=== PATIENT | male | born 1965 | race African-American/Black ===

== ENCOUNTER 2017-08-27 10:35 | Inpatient (IN) | payer OTHER ==
--- NOTE | 2017-08-27 16:38 | HP ---
CIWA Score - CIWA Score Nausea/Vomitin-Mild Nausea/No Vomiting Muscle Tremors: 4-Moderate,w/Arms Extend Anxiety: 4-Mod. Anxious/Guarded Agitation: 4-Moderately Restless Paroxysmal Sweats: 1-Minimal Palms Moist Orientation: 0-Oriented Tacttile Disturbances: 0-None Auditory Disturbances: 0-None Visual Disturbances: 0-None Headache: 1-Very Mild CIWA-Ar Total Score: 15 Admission ROS BHS - HPI Chief Complaint: withdrawal sx Allergies/Adverse Reactions: Allergies Allergy/AdvReac Type Severity Reaction Status Date / Time No Known Allergies Allergy Verified 08/27/17 15:00 History of Present Illness: 52 years old male with long history of alcohol nicotine dependence has hypertension gout positive ppd bipolar ii is admitted to detox Exam Limitations: No Limitations - Ebola screening Have you traveled outside of the country in the last 21 days: No Have you had contact with anyone from an Ebola affected area: No Have you been sick,other than usual withdrawal symptoms: No Do you have a fever: No - Review of Systems Constitutional: Loss of Appetite, Changes in sleep, Unintentional Wgt. Loss, Unexplained wgt Loss EENT: reports: No Symptoms Reported Respiratory: reports: No Symptoms reported Cardiac: reports: No Symptoms Reported GI: reports: Nausea, Poor Appetite, Poor Fluid Intake, Abdominal cramping : reports: No Symptoms Reported Musculoskeletal: reports: No Symptoms Reported, Other (right leg trauma 02/2017 support + crutches) Integumentary: reports: No Symptoms Reported Neuro: reports: Tremors Endocrine: reports: No Symptoms Reported Hematology: reports: No Symptoms Reported Psychiatric: reports: Judgement Intact, Orientated x3, Anxious, Depressed Other Systems: Reviewed and Negative Patient History - Patient Medical History Hx Anemia: Yes (not taking any iron supplement) Hx Asthma: No Hx Chronic Obstructive Pulmonary Disease (COPD): No Hx Cancer: No Hx Cardiac Disorders: No Hx Congestive Heart Failure: No Hx Hypertension: Yes (non compliant with meds.) Hx Hypercholesterolemia: No (SIMVASTATIN) Hx Pacemaker: No HX Cerebrovascular Accident: No Hx Seizures: No Hx Dementia: No Hx Diabetes: No Hx Gastrointestinal Disorders: No Hx Liver Disease: No Hx Genitourinary Disorders: No Hx Sexually Transmitted Disorders: No Hx Renal Disease (ESRD): No Hx Thyroid Disease: No Hx Human Immunodeficiency Virus (HIV): No (negative) Hx Hepatitis C: No Hx Depression: No Hx Suicide Attempt: No Hx Bipolar Disorder: Yes Hx Schizophrenia: No - Patient Surgical History Past Surgical History: Yes Hx Neurologic Surgery: No Hx Cataract Extraction: No Hx Cardiac Surgery: No Hx Lung Surgery: No Hx Breast Surgery: No Hx Breast Biopsy: No Hx Abdominal Surgery: No Hx Appendectomy: No Hx Cholecystectomy: No Hx Genitourinary Surgery: No Hx Orthopedic Surgery: Yes (R knee and leg sx 02/19) Anesthesia Reaction: No - PPD History Previous Implant?: Yes Documented Results: Positive w/o proof Implanted On Prior [facility] [place]?: No PPD to be Administered?: No - Smoking Cessation Smoking history: Current every day smoker Have you smoked in the past 12 months: Yes Aproximately how many cigarettes per day: 10 Cigars Per Day: 0 Hx Chewing Tobacco Use: No Initiated information on smoking cessation: Yes 'Breaking Loose' booklet given: 08/27/17 - Substance & Tx. History Hx Alcohol Use: Yes Hx Substance Use: No Substance Use Type: Alcohol Hx Substance Use Treatment: Yes (2015) - Substances Abused Alcohol Route: Oral Frequency: Daily Amount used: 2-3 6PKS BEER 40oz Age of first use: 17 Date of Last Use: 08/27/17 Crack Route: Smoking Frequency: Daily Amount used: $50-60 Age of first use: 19 Date of Last Use: 08/24/17 Family Disease History - Family Disease History Family Disease History: Diabetes: Mother (breast/), CA: Mother, Other: Father (htn CIROHSIS LIVER/), Brother (HIV/), Sister (no contact ) Admission Physical Exam S - Vital Signs Vital Signs: Vital Signs - 24 hr 08/27/17 13:51 Temperature 97 F L Pulse Rate 97 H Respiratory 20 Rate Blood Pressure 157/100 - Physical General Appearance: Yes: Appropriately Dressed, Mild Distress, Thin, Tremorous, Irritable, Sweating, Anxious HEENTM: Yes: Hearing grossly Normal, Normal ENT Inspection, Normocephalic, Normal Voice Respiratory: Yes: Chest Non-Tender, Lungs Clear, Normal Breath Sounds, No Respiratory Distress, No Accessory Muscle Use Neck: Yes: Supple, Trachea in good position Breast: Yes: Breasts Symetrical Cardiology: Yes: Regular Rhythm, S1, S2, Tachycardia Abdominal: Yes: Non Tender, Soft, Increased Bowel Sounds Genitourinary: Yes: Within Normal Limits Back: Yes: Normal Inspection Musculoskeletal: Yes: Gait Steady (crutches), Joint Stiffness (right knee), Muscle weakness (right leg) Extremities: Yes: Non-Tender, Tremors, Other (right leg trauma 02/2017) Neurological: Yes: Fully Oriented, Alert, Normal Response, Depressed Affect Integumentary: Yes: Warm Lymphatic: Yes: Within Normal Limits - Diagnostic (1) Alcohol dependence with uncomplicated withdrawal Current Visit: Yes Status: Acute (2) Bipolar II disorder Current Visit: Yes Status: Suspected (3) Weight loss Current Visit: Yes Status: Acute (4) Essential hypertension Current Visit: Yes Status: Chronic (5) Gout Current Visit: Yes Status: Chronic Qualifiers: Gout site: multiple sites Gout etiology: other secondary cause Chronicity : chronic Presence of tophus: without tophus Qualified Code(s): M1A.49X0 - Other secondary chronic gout, multiple sites, without tophus (tophi) (6) Nicotine dependence Current Visit: Yes Status: Acute Qualifiers: Nicotine product type: cigarettes Substance use status: in withdrawal Qualified Code(s): F17.213 - Nicotine dependence, cigarettes, with withdrawal Cleared for Admission [facility] - Detox or Rehab [facility] Level of Care: Medically Managed Detox Regimen/Protocol: Librium [facility] Breath Alcohol Content Breath Alcohol Content: 0.025 Urine Drug Screen - Results Drug Screen Negative: Yes
[2017-08-27] MEDS ORDERED: guaiFENesin/D-METHORPHAN HB 10 ML UNIT-DOSE CUPS PO PRN (16:43)
[2017-08-27] MEDS ORDERED: NICOTINE POLACRILEX 2 MG GUM BC PRN (16:43)
[2017-08-27] MEDS ORDERED: chlordiazePOXIDE HCL 25 MG CAPSULE PO PRN (16:43)
[2017-08-27] MEDS ORDERED: LOPERAMIDE HCL 2 MG CAPSULE PO PRN (16:43)
[2017-08-27] MEDS ORDERED: MAGNESIUM CITRATE 300 ML BOTTLE PO PRN (16:43)
[2017-08-27] MEDS ORDERED: MENTHOL/PHENOL 1 EACH UD MM PRN (16:43)
[2017-08-27] MEDS ORDERED: MAGNESIUM HYDROX 2400MG/30ML ORAL SUSPENSION 30 ML CUP PO PRN (16:43)
[2017-08-27] MEDS ORDERED: ACETAMINOPHEN 325 MG TABLET (FP) PO PRN (16:43)
[2017-08-27] MEDS ORDERED: P-EPHED 60MG/TRIPROLIDI 2.5MG TABLET PO PRN (16:43)
[2017-08-27] MEDS ORDERED: MAG HYDROX/AL HYDROX/SIMETH 30 ML UNIT-DOSE CUP PO PRN (16:43)
[2017-08-27] MEDS ORDERED: NICOTINE 14 MG/24 HOURS TOPICAL PATCH TD PRN (18:00)
[2017-08-27] MEDS: THIAMINE HCL 100 MG TABLET (FP) PO SCH (22:31)
[2017-08-27] MEDS: chlordiazePOXIDE HCL 25 MG CAPSULE PO SCH (22:31)
[2017-08-27 23:08] LABS: URINE APPEARANCE CLEAR; URINE BILIRUBIN NEGATIVE (NEGATIVE); URINE BLOOD NEGATIVE (NEGATIVE); URINE COLOR STRAW; URINE GLUCOSE (UA) NEGATIVE (NEGATIVE); URINE KETONE NEGATIVE (NEGATIVE); URINE LEUK ESTERASE NEGATIVE (NEGATIVE); URINE NITRITE NEGATIVE (NEGATIVE); URINE PROTEIN NEGATIVE (NEGATIVE); URINE UROBILINOGEN NEGATIVE mg/dL (0.2-1.0)
[2017-08-28] MEDS: chlordiazePOXIDE HCL 25 MG CAPSULE PO SCH ×4 (05:21→22:18)
[2017-08-28 10:00] LABS: HEMATOCRIT 42.1 % (35.4-49); HEMOGLOBIN 13.5 GM/dL (11.7-16.9); MCH 26.8 pg (25.7-33.7); MCHC 32.1 g/dl (32.0-35.9); MEAN CELL VOLUME 83.4 fl (80-96); MEAN PLT VOLUME 9.1 fl (7.5-11.1); PLATELET COUNT 235 K/MM3 (134-434); RBC 5.05 M/mm3 (4.00-5.60); RDW 15.4 % (11.9-15.9); WHITE BLOOD COUNT 5.6 K/mm3 (4.0-10.0)
[2017-08-28] MEDS: PRENATAL VITAMINS W/ FOLIC ACID TABLET (FP) PO SCH (10:47)
[2017-08-28] MEDS: ASPIRIN 81 MG CHEWABLE TABLETS PO SCH (10:47)
[2017-08-28] MEDS: amLODIPine BESYLATE 10 MG TABLET (FP) PO SCH (10:47)
[2017-08-28] MEDS: ALLOPURINOL 100 MG TABLET (FP) PO SCH (10:48)
--- NOTE | 2017-08-28 11:20 | PN ---
[facility] CIWA - CIWA Score Nausea/Vomitin-No Nausea/No Vomiting Muscle Tremors: 4-Moderate,w/Arms Extend Anxiety: 4-Mod. Anxious/Guarded Agitation: 4-Moderately Restless Paroxysmal Sweats: 1-Minimal Palms Moist Orientation: 0-Oriented Tacttile Disturbances: 3-Moderate Itch/Numb/Burn Auditory Disturbances: 0-None Visual Disturbances: 0-None Headache: 0-None Present CIWA-Ar Total Score: 16 BHS Progress Note (SOAP) Subjective: ANXIETY,SWEATS,TREMORS,FATIGUE. Objective: 08/28/17 11:20 Vital Signs Temperature 95.1 F L 08/28/17 09:10 Pulse Rate 88 08/28/17 09:10 Respiratory Rate 18 08/28/17 09:10 Blood Pressure 135/92 08/28/17 09:10 O2 Sat by Pulse Oximetry (%) Laboratory Last Values WBC 5.6 K/mm3 (4.0-10.0) 08/28/17 06:00 RBC 5.05 M/mm3 (4.00-5.60) 08/28/17 06:00 Hgb 13.5 GM/dL (11.7-16.9) 08/28/17 06:00 Hct 42.1 % (35.4-49) 08/28/17 06:00 MCV 83.4 fl (80-96) 08/28/17 06:00 MCH 26.8 pg (25.7-33.7) 08/28/17 06:00 MCHC 32.1 g/dl (32.0-35.9) 08/28/17 06:00 RDW 15.4 % (11.9-15.9) 08/28/17 06:00 Plt Count 235 K/MM3 (134-434) 08/28/17 06:00 MPV 9.1 fl (7.5-11.1) 08/28/17 06:00 Urine Color Straw 08/27/17 22:40 Urine Appearance Clear 08/27/17 22:40 Urine pH 5.0 (5.0-8.0) 08/27/17 22:40 Ur Specific [place] 1.009 (1.001-1.035) 08/27/17 22:40 Urine Protein Negative (NEGATIVE) 08/27/17 22:40 Urine Glucose (UA) Negative (NEGATIVE) 08/27/17 22:40 Urine Ketones Negative (NEGATIVE) 08/27/17 22:40 Urine Blood Negative (NEGATIVE) 08/27/17 22:40 Urine Nitrite Negative (NEGATIVE) 08/27/17 22:40 Urine Bilirubin Negative (NEGATIVE) 08/27/17 22:40 Urine Urobilinogen Negative mg/dL (0.2-1.0) 08/27/17 22:40 Ur Leukocyte Esterase Negative (NEGATIVE) 08/27/17 22:40 OTHER LAB RESULTS PENDING. Assessment: 08/28/17 11:20 WITHDRAWAL SX Plan: CONTINUE DETOX
[2017-08-28 11:35] LABS: CHLORIDE 107 mmol/L (98-107); POTASSIUM 4.2 mmol/L (3.5-5.1); SODIUM 145 mmol/L (136-145)
[2017-08-28 11:48] LABS: ALK PHOS 91 U/L (45-117); ANION GAP 10 (8-16); BILIRUBIN,TOTAL 0.4 mg/dL (0.2-1.0); BLOOD UREA NITROGEN 17 mg/dL (7-18); CALCIUM 9.4 mg/dL (8.5-10.1); CO2 28 mmol/L (21-32); CREATININE 1.1 mg/dL (0.7-1.3); GLUCOSE,RANDOM 63 mg/dL (74-106); SGOT/AST 54 U/L (15-37); SGPT/ALT 36 U/L (12-78); TOT PROT 8.6 g/dl (6.4-8.2)
--- NOTE | 2017-08-28 11:58 | CONSULT ---
[facility] Psychiatric Consult - Data Date of interview: 08/28/17 Admission source: [facility] Identifying data: Readmission to [facility] for this 52 y/o AA male seeking detox treatment on for alcohol and cocaine (crack) dependence.Patient is single,father of one,domiciled,disabled and currently supported on SSI benefits. Substance Abuse History: Discussed in this session.Mr Murphy confirmed daily use of alcohol and crack.See details in the current [facility] report : Smoking history: Current every day smoker. Have you smoked in the past 12 months: Yes. Aproximately how many cigarettes per day: 10. Cigars Per Day: 0. Hx Chewing Tobacco Use: No. Initiated information on smoking cessation: Yes. 'Breaking Loose' booklet given: 08/27/17. - Substance & Tx. History. Hx Alcohol Use: Yes. Hx Substance Use: No. Substance Use Type: Alcohol. Hx Substance Use Treatment: Yes (2015). - Substances Abused. Alcohol. Route: Oral. Frequency: Daily. Amount used: 2-3 6PKS BEER 40oz. Age of first use: 17. Date of Last Use: 08/27/17. Crack. Route: Smoking. Frequency: Daily. Amount used: $50-60. Age of first use: 19. Date of Last Use: 08/24/17 Medical History: Recent orthosurgery for injured right knee + right leg (02/2017) ,hypertension,dyslipidemia,gout and chronic arthritis. Psychiatric History: Patient admits to " a few " psychiatric hospitalizations years ago.Records indicate early onset of psychiatric disturbances (paranoia, auditory hallucinations experienced at age [age]).[place] [place] [place]osed with [place]D and Bipolar Disorder,according to self-report.Prescribed zyprexa 10 mg/daily + paxil 20 mg/daily.Mr Murphy states that he has NOT kept his appointments with his psychiatrist at [facility] for past 2-3 months.Questionable adherence to medications.No reported history of suicide attempts. Physical/Sexual Abuse/Trauma History: Patient denies. Additional Comment: Drug Screen is negative. Mental Status Exam - Mental Status Exam Alert and Oriented to: Time, Place, Person Cognitive Function: Grossly Intact Patient Appearance: Well Groomed Mood: Withdrawn, Anxious Affect: Mood Congruent Patient Behavior: Appropriate, Cooperative Speech Pattern: Clear, Appropriate Voice Loudness: Normal Thought Process: Goal Oriented Thought Disorder: Not Present Hallucinations: Denies Suicidal Ideation: Denies Homicidal Ideation: Denies Insight/Judgement: Poor Sleep: Poorly, Difficulty falling asleep Appetite: Good Muscle strength/Tone: Normal (no complaint of rigidity or weakness) Gait/Station: Other (ambulates with a pair of crutches) Psychiatric Findings - Problem List ([place] 1, 2,3) (1) Alcohol dependence with uncomplicated withdrawal Current Visit: Yes Status: Acute (2) Nicotine dependence Current Visit: Yes Status: Acute Qualifiers: Nicotine product type: cigarettes Substance use status: in withdrawal Qualified Code(s): F17.213 - Nicotine dependence, cigarettes, with withdrawal (3) Schizophrenia Current Visit: Yes Status: Chronic Qualifiers: Schizophrenia type: unspecified Qualified Code(s): F20.9 - Schizophrenia, unspecified Comment: As per records.Patient is on olanzapine.Enrolled in [facility]PD care at [facility].Non compliant with medications for past two months. (4) Insomnia Current Visit: Yes Status: Acute - Initial Treatment Plan Initial Treatment Plan: Records revisited.Psychoeducation provided in this session.Detoxification in progress.Medications : paxil 10 mg po daily + zyprexa 10 mg po hs + ambien 10 mg po hs.Side effecst/benefits of each drug are discussed with the patient.Made aware of risk of parasomnias,suicidal ideation, sexual dysfunction and metabolic syndrome.No report of past adverse effects from this regimen.Consent (verbal) given by patient.Observation.Fall precautions.
[2017-08-28] MEDS: PARoxetine HCL 10 MG TABLET (FP) PO SCH (14:35)
[2017-08-28] MEDS ORDERED: ZOLPIDEM TARTRATE 10 MG TABLET (PARK CARE ONLY) PO PRN (22:00)
[2017-08-28] MEDS: OLANZapine 10 MG TABLET PO SCH (22:18)
[2017-08-28] MEDS: THIAMINE HCL 100 MG TABLET (FP) PO SCH (22:18)
[2017-08-29] MEDS: chlordiazePOXIDE HCL 25 MG CAPSULE PO SCH ×3 (06:00→17:22)
--- NOTE | 2017-08-29 07:55 | EKG ---
Test Reason : Blood Pressure : / mmHG Vent. Rate : 093 BPM Atrial Rate : 093 BPM P-R Int : 124 ms QRS Dur : 074 ms QT Int : 356 ms P-R-T Axes : 079 069 081 degrees QTc Int : 442 ms NORMAL SINUS RHYTHM NORMAL ECG NO PREVIOUS ECGS AVAILABLE Confirmed by ROCK CAO, GALINA ([id number]) on 08/29/2017 7:55:34 AM Referred By: Confirmed By:GALINA WILKERSON MD
[2017-08-29] MEDS: PARoxetine HCL 10 MG TABLET (FP) PO SCH (10:29)
[2017-08-29] MEDS: ALLOPURINOL 100 MG TABLET (FP) PO SCH (10:29)
[2017-08-29] MEDS: ASPIRIN 81 MG CHEWABLE TABLETS PO SCH (10:29)
[2017-08-29] MEDS: PRENATAL VITAMINS W/ FOLIC ACID TABLET (FP) PO SCH (10:29)
[2017-08-29] MEDS: amLODIPine BESYLATE 10 MG TABLET (FP) PO SCH (10:29)
--- NOTE | 2017-08-29 12:23 | PN ---
[facility] CIWA - CIWA Score Nausea/Vomitin-No Nausea/No Vomiting Muscle Tremors: 4-Moderate,w/Arms Extend Anxiety: 4-Mod. Anxious/Guarded Agitation: 4-Moderately Restless Paroxysmal Sweats: 1-Minimal Palms Moist Orientation: 0-Oriented Tacttile Disturbances: 3-Moderate Itch/Numb/Burn Auditory Disturbances: 0-None Visual Disturbances: 0-None Headache: 0-None Present CIWA-Ar Total Score: 16 BHS Progress Note (SOAP) Subjective: ANXIETY,TREMORS,FATIGUE. Objective: 08/29/17 12:23 Vital Signs Temperature 96.3 F L 08/29/17 09:55 Pulse Rate 80 08/29/17 09:55 Respiratory Rate 20 08/29/17 09:55 Blood Pressure 133/92 08/29/17 09:55 O2 Sat by Pulse Oximetry (%) Laboratory Last Values WBC 5.6 K/mm3 (4.0-10.0) 08/28/17 06:00 RBC 5.05 M/mm3 (4.00-5.60) 08/28/17 06:00 Hgb 13.5 GM/dL (11.7-16.9) 08/28/17 06:00 Hct 42.1 % (35.4-49) 08/28/17 06:00 MCV 83.4 fl (80-96) 08/28/17 06:00 MCH 26.8 pg (25.7-33.7) 08/28/17 06:00 MCHC 32.1 g/dl (32.0-35.9) 08/28/17 06:00 RDW 15.4 % (11.9-15.9) 08/28/17 06:00 Plt Count 235 K/MM3 (134-434) 08/28/17 06:00 MPV 9.1 fl (7.5-11.1) 08/28/17 06:00 Sodium 145 mmol/L (136-145) 08/28/17 06:00 Potassium 4.2 mmol/L (3.5-5.1) 08/28/17 06:00 Chloride 107 mmol/L (98-107) 08/28/17 06:00 Carbon Dioxide 28 mmol/L (21-32) 08/28/17 06:00 Anion Gap 10 (8-16) 08/28/17 06:00 BUN 17 mg/dL (7-18) 08/28/17 06:00 Creatinine 1.1 mg/dL (0.7-1.3) 08/28/17 06:00 Creat Clearance w eGFR > 60 (>60) 08/28/17 06:00 Random Glucose 63 mg/dL (74-106) L D 08/28/17 06:00 Calcium 9.4 mg/dL (8.5-10.1) 08/28/17 06:00 Total Bilirubin 0.4 mg/dL (0.2-1.0) 08/28/17 06:00 AST 54 U/L (15-37) H D 08/28/17 06:00 ALT 36 U/L (12-78) 08/28/17 06:00 Alkaline Phosphatase 91 U/L (45-117) 08/28/17 06:00 Total Protein 8.6 g/dl (6.4-8.2) H 08/28/17 06:00 Albumin 4.0 g/dl (3.4-5.0) 08/28/17 06:00 Urine Color Straw 08/27/17 22:40 Urine Appearance Clear 08/27/17 22:40 Urine pH 5.0 (5.0-8.0) 08/27/17 22:40 Ur Specific [place] 1.009 (1.001-1.035) 08/27/17 22:40 Urine Protein Negative (NEGATIVE) 08/27/17 22:40 Urine Glucose (UA) Negative (NEGATIVE) 08/27/17 22:40 Urine Ketones Negative (NEGATIVE) 08/27/17 22:40 Urine Blood Negative (NEGATIVE) 08/27/17 22:40 Urine Nitrite Negative (NEGATIVE) 08/27/17 22:40 Urine Bilirubin Negative (NEGATIVE) 08/27/17 22:40 Urine Urobilinogen Negative mg/dL (0.2-1.0) 08/27/17 22:40 Ur Leukocyte Esterase Negative (NEGATIVE) 08/27/17 22:40 RPR Titer Nonreactive (NONREACTIVE) 08/28/17 06:00 Assessment: 08/29/17 12:23 WITHDRAWAL SX Plan: CONTINUE DETOX
[2017-08-29] MEDS: THIAMINE HCL 100 MG TABLET (FP) PO SCH (22:24)
[2017-08-29] MEDS: chlordiazePOXIDE 5 MG CAPSULE PO SCH (22:24)
[2017-08-29] MEDS: OLANZapine 10 MG TABLET PO SCH (22:25)
[2017-08-30] MEDS: chlordiazePOXIDE 5 MG CAPSULE PO SCH ×3 (05:39→17:45)
--- NOTE | 2017-08-30 10:43 | PN ---
BHS Progress Note (SOAP) Subjective: ANXIETY,SWEATS,OOB AMBULATING WITH CRUTCHES. DECREASED TREMORS. Objective: 08/30/17 10:42 Vital Signs Temperature 97.7 F 08/30/17 10:27 Pulse Rate 87 08/30/17 10:27 Respiratory Rate 18 08/30/17 10:27 Blood Pressure 131/91 08/30/17 10:27 O2 Sat by Pulse Oximetry (%) Laboratory Last Values WBC 5.6 K/mm3 (4.0-10.0) 08/28/17 06:00 RBC 5.05 M/mm3 (4.00-5.60) 08/28/17 06:00 Hgb 13.5 GM/dL (11.7-16.9) 08/28/17 06:00 Hct 42.1 % (35.4-49) 08/28/17 06:00 MCV 83.4 fl (80-96) 08/28/17 06:00 MCH 26.8 pg (25.7-33.7) 08/28/17 06:00 MCHC 32.1 g/dl (32.0-35.9) 08/28/17 06:00 RDW 15.4 % (11.9-15.9) 08/28/17 06:00 Plt Count 235 K/MM3 (134-434) 08/28/17 06:00 MPV 9.1 fl (7.5-11.1) 08/28/17 06:00 Sodium 145 mmol/L (136-145) 08/28/17 06:00 Potassium 4.2 mmol/L (3.5-5.1) 08/28/17 06:00 Chloride 107 mmol/L (98-107) 08/28/17 06:00 Carbon Dioxide 28 mmol/L (21-32) 08/28/17 06:00 Anion Gap 10 (8-16) 08/28/17 06:00 BUN 17 mg/dL (7-18) 08/28/17 06:00 Creatinine 1.1 mg/dL (0.7-1.3) 08/28/17 06:00 Creat Clearance w eGFR > 60 (>60) 08/28/17 06:00 Random Glucose 63 mg/dL (74-106) L D 08/28/17 06:00 Calcium 9.4 mg/dL (8.5-10.1) 08/28/17 06:00 Total Bilirubin 0.4 mg/dL (0.2-1.0) 08/28/17 06:00 AST 54 U/L (15-37) H D 08/28/17 06:00 ALT 36 U/L (12-78) 08/28/17 06:00 Alkaline Phosphatase 91 U/L (45-117) 08/28/17 06:00 Total Protein 8.6 g/dl (6.4-8.2) H 08/28/17 06:00 Albumin 4.0 g/dl (3.4-5.0) 08/28/17 06:00 Urine Color Straw 08/27/17 22:40 Urine Appearance Clear 08/27/17 22:40 Urine pH 5.0 (5.0-8.0) 08/27/17 22:40 Ur Specific [place] 1.009 (1.001-1.035) 08/27/17 22:40 Urine Protein Negative (NEGATIVE) 08/27/17 22:40 Urine Glucose (UA) Negative (NEGATIVE) 08/27/17 22:40 Urine Ketones Negative (NEGATIVE) 08/27/17 22:40 Urine Blood Negative (NEGATIVE) 08/27/17 22:40 Urine Nitrite Negative (NEGATIVE) 08/27/17 22:40 Urine Bilirubin Negative (NEGATIVE) 08/27/17 22:40 Urine Urobilinogen Negative mg/dL (0.2-1.0) 08/27/17 22:40 Ur Leukocyte Esterase Negative (NEGATIVE) 08/27/17 22:40 RPR Titer Nonreactive (NONREACTIVE) 08/28/17 06:00 Assessment: 08/30/17 10:42 WITHDRAWAL SX Plan: CONTINUE DETOX
[2017-08-30] MEDS: amLODIPine BESYLATE 10 MG TABLET (FP) PO SCH (10:44)
[2017-08-30] MEDS: ASPIRIN 81 MG CHEWABLE TABLETS PO SCH (10:44)
[2017-08-30] MEDS: PRENATAL VITAMINS W/ FOLIC ACID TABLET (FP) PO SCH (10:44)
[2017-08-30] MEDS: ALLOPURINOL 100 MG TABLET (FP) PO SCH (10:45)
[2017-08-30] MEDS: PARoxetine HCL 10 MG TABLET (FP) PO SCH (10:45)
[2017-08-30] MEDS: chlordiazePOXIDE HCL 10 MG CAPSULE PO SCH (22:32)
[2017-08-30] MEDS: THIAMINE HCL 100 MG TABLET (FP) PO SCH (22:32)
[2017-08-30] MEDS: OLANZapine 10 MG TABLET PO SCH (22:32)
[2017-08-31] MEDS: chlordiazePOXIDE HCL 10 MG CAPSULE PO SCH ×2 (06:07→10:30)
[2017-08-31 09:51] VITALS: BP 143/94; PULSE 95; TEMP 97.4
--- NOTE | 2017-08-31 10:13 | DS ---
[facility] Detox Discharge Summary Admission Date: 08/27/17 Discharge Date: 08/31/17 - History Present History: Alcohol Dependence Additional Comments: DETOX COMPLETED. ALERT O X 3. REFERRED TO REHAB TODAY. Pertinent Past History: SEE DX BELOW. - Physical Exam Results Vital Signs: Vital Signs Temperature 97.4 F L 08/31/17 09:51 Pulse Rate 95 H 08/31/17 09:51 Respiratory Rate 20 08/31/17 09:51 Blood Pressure 143/94 08/31/17 09:51 O2 Sat by Pulse Oximetry (%) Pertinent Admission Physical Exam Findings: WITHDRAWAL SX Laboratory Last Values WBC 5.6 K/mm3 (4.0-10.0) 08/28/17 06:00 RBC 5.05 M/mm3 (4.00-5.60) 08/28/17 06:00 Hgb 13.5 GM/dL (11.7-16.9) 08/28/17 06:00 Hct 42.1 % (35.4-49) 08/28/17 06:00 MCV 83.4 fl (80-96) 08/28/17 06:00 MCH 26.8 pg (25.7-33.7) 08/28/17 06:00 MCHC 32.1 g/dl (32.0-35.9) 08/28/17 06:00 RDW 15.4 % (11.9-15.9) 08/28/17 06:00 Plt Count 235 K/MM3 (134-434) 08/28/17 06:00 MPV 9.1 fl (7.5-11.1) 08/28/17 06:00 Sodium 145 mmol/L (136-145) 08/28/17 06:00 Potassium 4.2 mmol/L (3.5-5.1) 08/28/17 06:00 Chloride 107 mmol/L (98-107) 08/28/17 06:00 Carbon Dioxide 28 mmol/L (21-32) 08/28/17 06:00 Anion Gap 10 (8-16) 08/28/17 06:00 BUN 17 mg/dL (7-18) 08/28/17 06:00 Creatinine 1.1 mg/dL (0.7-1.3) 08/28/17 06:00 Creat Clearance w eGFR > 60 (>60) 08/28/17 06:00 Random Glucose 63 mg/dL (74-106) L D 08/28/17 06:00 Calcium 9.4 mg/dL (8.5-10.1) 08/28/17 06:00 Total Bilirubin 0.4 mg/dL (0.2-1.0) 08/28/17 06:00 AST 54 U/L (15-37) H D 08/28/17 06:00 ALT 36 U/L (12-78) 08/28/17 06:00 Alkaline Phosphatase 91 U/L (45-117) 08/28/17 06:00 Total Protein 8.6 g/dl (6.4-8.2) H 08/28/17 06:00 Albumin 4.0 g/dl (3.4-5.0) 08/28/17 06:00 Urine Color Straw 08/27/17 22:40 Urine Appearance Clear 08/27/17 22:40 Urine pH 5.0 (5.0-8.0) 08/27/17 22:40 Ur Specific [place] 1.009 (1.001-1.035) 08/27/17 22:40 Urine Protein Negative (NEGATIVE) 08/27/17 22:40 Urine Glucose (UA) Negative (NEGATIVE) 08/27/17 22:40 Urine Ketones Negative (NEGATIVE) 08/27/17 22:40 Urine Blood Negative (NEGATIVE) 08/27/17 22:40 Urine Nitrite Negative (NEGATIVE) 08/27/17 22:40 Urine Bilirubin Negative (NEGATIVE) 08/27/17 22:40 Urine Urobilinogen Negative mg/dL (0.2-1.0) 08/27/17 22:40 Ur Leukocyte Esterase Negative (NEGATIVE) 08/27/17 22:40 RPR Titer Nonreactive (NONREACTIVE) 08/28/17 06:00 - Treatment Hospital Course: Detox Protocol Followed, Detoxed Safely, Responded well, Discharged Condition Good, Rehab Referral Accepted Patient has Accepted a Rehab Referral to: [email or web address] REHAB - Medication Discharge Medications: Ambulatory Orders Paroxetine HCl [Paxil -] 20 mg PO DAILY #30 tablet 09/10/14 Olanzapine [ZyPREXA -] 10 mg PO HS #30 tablet 12/21/14 Allopurinol [Zyloprim -] 100 mg PO DAILY #30 tablet 03/02/16 Amlodipine Besylate [Norvasc -] 10 mg PO DAILY #30 tablet 03/02/16 Aspirin [ASA -] 81 mg PO DAILY #30 tab.chew 03/02/16 Allopurinol [Zyloprim -] 100 mg PO DAILY 08/27/17 Olanzapine [Zyprexa -] 10 mg PO HS #30 tablet 08/28/17 Paroxetine HCl [Paxil -] 10 mg PO DAILY #30 tablet 08/28/17 - Diagnosis (1) Alcohol dependence with uncomplicated withdrawal Current Visit: Yes Status: Acute (2) Nicotine dependence Current Visit: Yes Status: Acute Qualifiers: Nicotine product type: cigarettes Substance use status: in withdrawal Qualified Code(s): F17.213 - Nicotine dependence, cigarettes, with withdrawal (3) Weight loss Current Visit: Yes Status: Chronic (4) Essential hypertension Current Visit: Yes Status: Chronic (5) Gout Current Visit: Yes Status: Chronic Qualifiers: Gout site: multiple sites Gout etiology: other secondary cause Chronicity : chronic Presence of tophus: without tophus Qualified Code(s): M1A.49X0 - Other secondary chronic gout, multiple sites, without tophus (tophi) (6) Acid reflux Current Visit: No Status: Chronic (7) Arthritis of both knees Current Visit: Yes Status: Chronic (8) Hypercholesteremia Current Visit: Yes Status: Chronic (9) Use of cane as ambulatory aid Current Visit: Yes Status: Chronic (10) Uses crutches Current Visit: Yes Status: Acute - AMA Did Patient Leave Against Medical Advice: No
[2017-08-31] MEDS: PRENATAL VITAMINS W/ FOLIC ACID TABLET (FP) PO SCH (10:29)
[2017-08-31] MEDS: amLODIPine BESYLATE 10 MG TABLET (FP) PO SCH (10:29)
[2017-08-31] MEDS: ALLOPURINOL 100 MG TABLET (FP) PO SCH (10:29)
[2017-08-31] MEDS: PARoxetine HCL 10 MG TABLET (FP) PO SCH (10:29)
[2017-08-31] MEDS: ASPIRIN 81 MG CHEWABLE TABLETS PO SCH (10:29)
== END 2017-08-31 11:00 | disposition other institution (70) | DRG 775 ==
LOC: YASAS 10:35 → Y3N 15:30
PROVIDERS: ADMIT Internal Medicine; ATTEND Internal Medicine
PROC: HZ2ZZZZ Detoxification Services for Substance Abuse Treatment (ICD-10-PCS; principal; 2017-08-27)
DX: F10.230 Alcohol dependence with withdrawal, uncomplicated (principal); F17.210 Nicotine dependence, cigarettes, uncomplicated; F31.81 Bipolar II disorder; F20.9 Schizophrenia, unspecified; G47.00 Insomnia, unspecified; I10 Essential (primary) hypertension; K21.9 Gastro-esophageal reflux disease without esophagitis; M13.862 Other specified arthritis, left knee; M13.861 Other specified arthritis, right knee; M1A.49X0 Other secondary chronic gout, multiple sites, without tophus (tophi); R63.4 Abnormal weight loss; Z68.20 Body mass index [BMI] 20.0-20.9, adult; R26.89 Other abnormalities of gait and mobility; Z99.89 Dependence on other enabling machines and devices
CPT/HCPCS: 36415; 71045-TC; 80053; 81003; 85027; 86593; 93005; 93010

== ENCOUNTER 2018-09-05 12:47 | Inpatient (IN) | payer OTHER ==
[2018-09-05 12:57] VITALS: BMI 20.2
--- NOTE | 2018-09-05 16:49 | HP ---
CIWA Score Nausea/Vomitin-Mild Nausea/No Vomiting Muscle Tremors: 2 Anxiety: 1-Mildly Anxious Agitation: 7-Pacing/Thrashing Paroxysmal Sweats: 1-Minimal Palms Moist Orientation: 0-Oriented Tacttile Disturbances: 0-None Auditory Disturbances: 0-None Visual Disturbances: 0-None Headache: 0-None Present CIWA-Ar Total Score: 12 - Admission Criteria OAS Guidelines: Admission for Medically Managed Detox: Requires at least one of the followin. CIWA greater than 12 2. Seizures within the past 24 hours 3. Delirium tremens within the past 24 hours 4. Hallucinations within the past 24 hours 5. Acute intervention needed for co occurring medical disorder 6. Acute intervention needed for co occurring psychiatric disorder 7. Severe withdrawal that cannot be handled at a lower level of care (continued vomiting, continued diarrhea, abnormal vital signs) requiring intravenous medication and/or fluids 8. Patient presents the following: CIWA greater than 12 Admission Criteria Met: Admission criteria met Admission ROS [facility] [place] Chief Complaint: "detox from alcohol and cocaine" 56 years old male with long history of alcohol and nicotine dependence, with h/ o hypertension, h/o gout, h/o positive ppd h/o bipolar. Pt using crutches- after he broke his leg/knee last fall, says he does not need them- was told he can weight bear. Last seen for his leg/knee in 04/2018- has not had any medical care for this since the fall. After he broke his leg/knee last fall- did not. Pt was last here for the same, says he relapsed shortly after he left. Alcohol: 10 24 oz of beer, occ vodka use, no h/o seizures/DT's cocaine: $50/day, smoking Meds: hctz, norvasc 10mg, aspirin, paxil 10mg, zyprexa PCP- in [place] DUR: no controlled meds Utox: cocaine, NICCI- 0.038 Allergies/Adverse Reactions: Allergies Allergy/AdvReac Type Severity Reaction Status Date / Time No Known Allergies Allergy Verified 09/05/18 15:08 - Ebola screening Have you traveled outside of the country in the last 21 days: No Have you had contact with anyone from an Ebola affected area: No Have you been sick,other than usual withdrawal symptoms: No Do you have a fever: No Patient History - Patient Medical History Hx Anemia: Yes (not taking any iron supplement) Hx Asthma: No Hx Chronic Obstructive Pulmonary Disease (COPD): Yes Hx Cancer: No Hx Cardiac Disorders: No Hx Congestive Heart Failure: No Hx Hypertension: Yes Hx Hypercholesterolemia: No (SIMVASTATIN) Hx Pacemaker: No HX Cerebrovascular Accident: No Hx Seizures: No Hx Dementia: No Hx Diabetes: No Hx Gastrointestinal Disorders: No Hx Liver Disease: No Hx Genitourinary Disorders: No Hx Sexually Transmitted Disorders: No Hx Renal Disease (ESRD): No Hx Thyroid Disease: No Hx Human Immunodeficiency Virus (HIV): No (negative) Hx Hepatitis C: No Hx Depression: Yes Hx Suicide Attempt: No Hx Bipolar Disorder: Yes Hx Schizophrenia: No - Patient Surgical History Past Surgical History: Yes Hx Neurologic Surgery: No Hx Cataract Extraction: No Hx Cardiac Surgery: No Hx Lung Surgery: No Hx Breast Surgery: No Hx Breast Biopsy: No Hx Abdominal Surgery: No Hx Appendectomy: No Hx Cholecystectomy: No Hx Genitourinary Surgery: No Hx Section: No Hx Orthopedic Surgery: Yes (fx, right leg (fall) in 02/2018) Anesthesia Reaction: No - PPD History Previous Implant?: Yes Documented Results: Positive w/o proof - Smoking Cessation Smoking history: Current every day smoker Have you smoked in the past 12 months: Yes Aproximately how many cigarettes per day: 10 Cigars Per Day: 0 Hx Chewing Tobacco Use: No Initiated information on smoking cessation: Yes 'Breaking Loose' booklet given: 09/05/18 - Substance & Tx. History Hx Alcohol Use: Yes Hx Substance Use: No Substance Use Type: Alcohol, Cocaine, Marijuana Hx Substance Use Treatment: Yes - Substances Abused Crack Route: Smoking Frequency: Daily Amount used: $50 Age of first use: 19 Date of Last Use: 09/04/18 Alcohol-beer Route: Oral Frequency: Daily Amount used: 2 -3 6 pks. Age of first use: 17 Date of Last Use: 09/05/18 Family Disease History - Family Disease History Family Disease History: Diabetes: Mother (breast/), CA: Mother, Other: Father (htn CIROHSIS LIVER/), Brother (HIV/), Sister (no contact ) Admission Physical Exam BHS - Vital Signs Vital Signs: Vital Signs - 24 hr 09/05/18 12:49 Temperature 96.7 F L Pulse Rate 97 H Respiratory 18 Rate Blood Pressure 160/100 - Physical General Appearance: Yes: No Apparent Distress, Disheveled, Thin HEENTM: Yes: Within Normal Limits, EOMI, Hearing grossly Normal, Normal Voice, TETO Respiratory: Yes: Within Normal Limits, Lungs Clear Neck: Yes: Within Normal Limits Cardiology: Yes: Within Normal Limits, Regular Rhythm, Regular Rate Abdominal: Yes: Within Normal Limits Back: Yes: Within Normal Limits Musculoskeletal: Yes: Within Normal Limits (R knee deformed- enlarged-old fractures, which pt did not follow up with knee replacement. no edema, thin legs ), Other Extremities: Yes: Within Normal Limits (R knee deformed- enlarged-old fractures , which pt did not follow up with knee replacement. no edema, thin legs) Neurological: Yes: Within Normal Limits, Alert, Motor Strength 5/5 Integumentary: Yes: Within Normal Limits (dry skin) Lymphatic: Yes: Within Normal Limits - Diagnostic (1) Alcohol dependence with uncomplicated withdrawal Current Visit: No Status: Acute (2) Cocaine dependence Current Visit: No Status: Acute (3) Uses crutches Current Visit: No Status: Acute (4) Arthritis of both knees Current Visit: No Status: Chronic (5) Essential hypertension Current Visit: No Status: Chronic (6) Bipolar II disorder Current Visit: No Status: Suspected BHS Breath Alcohol Content Breath Alcohol Content: 0.038 Urine Drug Screen - Results Drug Screen Negative: No Urine Drug Screen Results: SVETLANA-Cocaine
[2018-09-05] MEDS ORDERED: MENTHOL/PHENOL 1 EACH UD MM PRN (17:01)
[2018-09-05] MEDS ORDERED: P-EPHED 60MG/TRIPROLIDI 2.5MG TABLET PO PRN (17:01)
[2018-09-05] MEDS ORDERED: MAGNESIUM CITRATE 300 ML BOTTLE PO PRN (17:01)
[2018-09-05] MEDS ORDERED: MAG HYDROX/AL HYDROX/SIMETH 30 ML UNIT-DOSE CUP PO PRN (17:01)
[2018-09-05] MEDS ORDERED: IBUPROFEN 400 MG TABLET (FP) PO PRN (17:01)
[2018-09-05] MEDS ORDERED: LOPERAMIDE HCL 2 MG CAPSULE PO PRN (17:01)
[2018-09-05] MEDS ORDERED: ACETAMINOPHEN 325 MG TABLET (FP) PO PRN (17:01)
[2018-09-05] MEDS ORDERED: guaiFENesin/D-METHORPHAN HB 10 ML UNIT-DOSE CUPS PO PRN (17:01)
[2018-09-05] MEDS ORDERED: MAGNESIUM HYDROX 2400MG/30ML ORAL SUSPENSION 30 ML CUP PO PRN (17:01)
[2018-09-05] MEDS ORDERED: chlordiazePOXIDE HCL 25 MG CAPSULE PO PRN (17:03)
[2018-09-05] MEDS ORDERED: chlordiazePOXIDE HCL 25 MG CAPSULE PO ONE (18:00)
[2018-09-05] MEDS ORDERED: HYDROCHLOROTHIAZIDE 25 MG TABLET (FP) PO ONE (19:00)
[2018-09-05] MEDS ORDERED: amLODIPine BESYLATE 10 MG TABLET (FP) PO ONE (19:00)
[2018-09-05] MEDS ORDERED: MELATONIN 5 MG TABLETS PO PRN (22:00)
[2018-09-05] MEDS: THIAMINE HCL 100 MG TABLET (FP) PO SCH (22:25)
[2018-09-05] MEDS: chlordiazePOXIDE HCL 25 MG CAPSULE PO SCH (22:25)
[2018-09-05] MEDS: OLANZapine 10 MG TABLET PO SCH (22:25)
[2018-09-06 02:14] LABS: URINE APPEARANCE CLEAR; URINE BILIRUBIN NEGATIVE (<2.0 mg/dL); URINE COLOR STRAW; URINE GLUCOSE (UA) NEGATIVE (NEGATIVE); URINE KETONE NEGATIVE (NEGATIVE); URINE LEUK ESTERASE NEGATIVE (NEGATIVE); URINE NITRITE NEGATIVE (NEGATIVE); URINE PROTEIN NEGATIVE (NEGATIVE); URINE UROBILINOGEN NEGATIVE mg/dL (0.2-1.0)
[2018-09-06] MEDS: chlordiazePOXIDE HCL 25 MG CAPSULE PO SCH ×4 (06:33→22:51)
[2018-09-06] MEDS: amLODIPine BESYLATE 10 MG TABLET (FP) PO SCH (10:34)
[2018-09-06] MEDS: HYDROCHLOROTHIAZIDE 25 MG TABLET (FP) PO SCH (10:34)
[2018-09-06] MEDS: PARoxetine HCL 10 MG TABLET (FP) PO SCH (10:34)
[2018-09-06] MEDS: PRENATAL VITAMINS W/ FOLIC ACID TABLET (FP) PO SCH (10:34)
[2018-09-06 10:49] LABS: HEMATOCRIT 35.9 % (35.4-49); HEMOGLOBIN 12.1 GM/dL (11.7-16.9); MCH 28.1 pg (25.7-33.7); MCHC 33.8 g/dl (32.0-35.9); MEAN CELL VOLUME 83.1 fl (80-96); MEAN PLT VOLUME 8.6 fl (7.5-11.1); PLATELET COUNT 197 K/MM3 (134-434); RBC 4.32 M/mm3 (4.00-5.60); RDW 14.6 % (11.9-15.9); WHITE BLOOD COUNT 3.9 K/mm3 (4.0-10.0)
[2018-09-06 10:51] LABS: ALK PHOS 77 U/L (45-117); ANION GAP 7 MMOL/L (8-16); BILIRUBIN,TOTAL 0.5 mg/dL (0.2-1); BLOOD UREA NITROGEN 13 mg/dL (7-18); CALCIUM 8.8 mg/dL (8.5-10.1); CHLORIDE 106 mmol/L (98-107); CO2 30 mmol/L (21-32); CREATININE 0.9 mg/dL (0.55-1.3); GLUCOSE,RANDOM 87 mg/dL (74-106); POTASSIUM 3.8 mmol/L (3.5-5.1); SGOT/AST 138 U/L (15-37); SGPT/ALT 74 U/L (13-61); SODIUM 143 mmol/L (136-145); TOT PROT 6.4 g/dl (6.4-8.2)
--- NOTE | 2018-09-06 13:37 | PN ---
S CIWA - CIWA Score Nausea/Vomitin-No Nausea/No Vomiting Muscle Tremors: 3 Anxiety: 3 Agitation: 3 Paroxysmal Sweats: 2 Orientation: 0-Oriented Tacttile Disturbances: 0-None Auditory Disturbances: 0-None Visual Disturbances: 0-None Headache: 0-None Present CIWA-Ar Total Score: 11 BHS Progress Note (SOAP) Subjective: sweats interrupted sleep body aches Objective: 09/06/18 13:36 Vital Signs Temperature 98.2 F 09/06/18 10:02 Pulse Rate 89 09/06/18 10:02 Respiratory Rate 18 09/06/18 10:02 Blood Pressure 142/95 09/06/18 10:02 O2 Sat by Pulse Oximetry (%) Laboratory Tests 09/06/18 09/06/18 09/06/18 00:30 07:00 07:00 WBC 3.9 L RBC 4.32 Hgb 12.1 Hct 35.9 MCV 83.1 MCH 28.1 MCHC 33.8 RDW 14.6 Plt Count 197 MPV 8.6 Sodium 143 Potassium 3.8 Chloride 106 Carbon Dioxide 30 Anion Gap 7 L BUN 13 Creatinine 0.9 Creat Clearance w eGFR > 60 Random Glucose 87 Calcium 8.8 Total Bilirubin 0.5 AST 138 H ALT 74 H Alkaline Phosphatase 77 Total Protein 6.4 Albumin 3.0 L Urine Color Straw Urine Appearance Clear Urine pH 6.0 Ur Specific [place] 1.009 L Urine Protein Negative Urine Glucose (UA) Negative Urine Ketones Negative Urine Blood Negative Urine Nitrite Negative Urine Bilirubin Negative Urine Urobilinogen Negative Ur Leukocyte Esterase Negative aaox3 lying in bed no acute distress Assessment: 09/06/18 13:36 withdrawal sx Plan: continue detox increase fluids
[2018-09-06] MEDS: THIAMINE HCL 100 MG TABLET (FP) PO SCH (22:51)
[2018-09-06] MEDS: OLANZapine 10 MG TABLET PO SCH (22:51)
[2018-09-07] MEDS: chlordiazePOXIDE HCL 25 MG CAPSULE PO SCH ×3 (06:27→17:07)
[2018-09-07] MEDS: PRENATAL VITAMINS W/ FOLIC ACID TABLET (FP) PO SCH (10:21)
[2018-09-07] MEDS: PARoxetine HCL 10 MG TABLET (FP) PO SCH (10:22)
[2018-09-07] MEDS: amLODIPine BESYLATE 10 MG TABLET (FP) PO SCH (10:22)
[2018-09-07] MEDS: HYDROCHLOROTHIAZIDE 25 MG TABLET (FP) PO SCH (10:22)
--- NOTE | 2018-09-07 14:11 | PN ---
S CIWA - CIWA Score Nausea/Vomitin Muscle Tremors: 2 Anxiety: 2 Agitation: 2 Paroxysmal Sweats: 2 Orientation: 0-Oriented Tacttile Disturbances: 0-None Auditory Disturbances: 0-None Visual Disturbances: 0-None Headache: 1-Very Mild CIWA-Ar Total Score: 11 S Progress Note (SOAP) Subjective: Body aches, interrupted sleep, irritability and abdominal discomfort Objective: 09/07/18 14:10 Vital Signs 09/07/18 09/07/18 09/07/18 06:54 09:31 14:01 Temperature 97.9 F 98.2 F 98.4 F Pulse Rate 79 106 H 114 H Respiratory 18 16 16 Rate Blood Pressure 126/81 149/88 152/95 Laboratory Last Values WBC 3.9 K/mm3 (4.0-10.0) L 09/06/18 07:00 RBC 4.32 M/mm3 (4.00-5.60) 09/06/18 07:00 Hgb 12.1 GM/dL (11.7-16.9) 09/06/18 07:00 Hct 35.9 % (35.4-49) 09/06/18 07:00 MCV 83.1 fl (80-96) 09/06/18 07:00 MCH 28.1 pg (25.7-33.7) 09/06/18 07:00 MCHC 33.8 g/dl (32.0-35.9) 09/06/18 07:00 RDW 14.6 % (11.9-15.9) 09/06/18 07:00 Plt Count 197 K/MM3 (134-434) 09/06/18 07:00 MPV 8.6 fl (7.5-11.1) 09/06/18 07:00 Sodium 143 mmol/L (136-145) 09/06/18 07:00 Potassium 3.8 mmol/L (3.5-5.1) 09/06/18 07:00 Chloride 106 mmol/L (98-107) 09/06/18 07:00 Carbon Dioxide 30 mmol/L (21-32) 09/06/18 07:00 Anion Gap 7 MMOL/L (8-16) L 09/06/18 07:00 BUN 13 mg/dL (7-18) 09/06/18 07:00 Creatinine 0.9 mg/dL (0.55-1.3) 09/06/18 07:00 Creat Clearance w eGFR > 60 (>60) 09/06/18 07:00 Random Glucose 87 mg/dL (74-106) 09/06/18 07:00 Calcium 8.8 mg/dL (8.5-10.1) 09/06/18 07:00 Total Bilirubin 0.5 mg/dL (0.2-1) 09/06/18 07:00 AST 138 U/L (15-37) H 09/06/18 07:00 ALT 74 U/L (13-61) H 09/06/18 07:00 Alkaline Phosphatase 77 U/L (45-117) 09/06/18 07:00 Total Protein 6.4 g/dl (6.4-8.2) 09/06/18 07:00 Albumin 3.0 g/dl (3.4-5.0) L 09/06/18 07:00 Urine Color Straw 09/06/18 00:30 Urine Appearance Clear 09/06/18 00:30 Urine pH 6.0 (5.0-8.0) 09/06/18 00:30 Ur Specific [place] 1.009 (1.010-1.035) L 09/06/18 00:30 Urine Protein Negative (NEGATIVE) 09/06/18 00:30 Urine Glucose (UA) Negative (NEGATIVE) 09/06/18 00:30 Urine Ketones Negative (NEGATIVE) 09/06/18 00:30 Urine Blood Negative (NEGATIVE) 09/06/18 00:30 Urine Nitrite Negative (NEGATIVE) 09/06/18 00:30 Urine Bilirubin Negative (<2.0 mg/dL) 09/06/18 00:30 Urine Urobilinogen Negative mg/dL (0.2-1.0) 09/06/18 00:30 Ur Leukocyte Esterase Negative (NEGATIVE) 09/06/18 00:30 RPR Titer Nonreactive (NONREACTIVE) 09/06/18 07:00 Labs noted Assessment: 09/07/18 14:10 Withdrawal sx Plan: Continue detox
[2018-09-07] MEDS: OLANZapine 10 MG TABLET PO SCH (22:18)
[2018-09-07] MEDS: chlordiazePOXIDE 5 MG CAPSULE PO SCH (22:18)
[2018-09-07] MEDS: THIAMINE HCL 100 MG TABLET (FP) PO SCH (22:18)
[2018-09-08] MEDS: chlordiazePOXIDE 5 MG CAPSULE PO SCH ×3 (06:33→18:11)
[2018-09-08] MEDS: amLODIPine BESYLATE 10 MG TABLET (FP) PO SCH (10:24)
[2018-09-08] MEDS: HYDROCHLOROTHIAZIDE 25 MG TABLET (FP) PO SCH (10:24)
[2018-09-08] MEDS: PARoxetine HCL 10 MG TABLET (FP) PO SCH (10:24)
[2018-09-08] MEDS: PRENATAL VITAMINS W/ FOLIC ACID TABLET (FP) PO SCH (10:24)
--- NOTE | 2018-09-08 11:36 | PN ---
BHS Progress Note (SOAP) Subjective: Pt states he is fine today O: Vital Signs - 24 hr 09/07/18 09/07/18 09/07/18 14:01 17:46 18:40 Temperature 98.4 F 98.6 F Pulse Rate 114 H 122 H 104 H Respiratory 16 18 18 Rate Blood Pressure 152/95 140/103 H 148/89 09/07/18 09/08/18 09/08/18 22:24 00:30 03:30 Temperature 99 F Pulse Rate 104 H Respiratory 18 18 18 Rate Blood Pressure 148/89 09/08/18 07:29 Temperature 98.2 F Pulse Rate 89 Respiratory 20 Rate Blood Pressure 143/98 Laboratory Tests 09/06/18 09/06/18 09/06/18 00:30 07:00 07:00 WBC 3.9 L RBC 4.32 Hgb 12.1 Hct 35.9 MCV 83.1 MCH 28.1 MCHC 33.8 RDW 14.6 Plt Count 197 MPV 8.6 Sodium 143 Potassium 3.8 Chloride 106 Carbon Dioxide 30 Anion Gap 7 L BUN 13 Creatinine 0.9 Creat Clearance w eGFR > 60 Random Glucose 87 Calcium 8.8 Total Bilirubin 0.5 AST 138 H ALT 74 H Alkaline Phosphatase 77 Total Protein 6.4 Albumin 3.0 L Urine Color Straw Urine Appearance Clear Urine pH 6.0 Ur Specific [place] 1.009 L Urine Protein Negative Urine Glucose (UA) Negative Urine Ketones Negative Urine Blood Negative Urine Nitrite Negative Urine Bilirubin Negative Urine Urobilinogen Negative Ur Leukocyte Esterase Negative RPR Titer 09/06/18 07:00 WBC RBC Hgb Hct MCV MCH MCHC RDW Plt Count MPV Sodium Potassium Chloride Carbon Dioxide Anion Gap BUN Creatinine Creat Clearance w eGFR Random Glucose Calcium Total Bilirubin AST ALT Alkaline Phosphatase Total Protein Albumin Urine Color Urine Appearance Urine pH Ur Specific [place] Urine Protein Urine Glucose (UA) Urine Ketones Urine Blood Urine Nitrite Urine Bilirubin Urine Urobilinogen Ur Leukocyte Esterase RPR Titer Nonreactive a/p: continue alcohol detox protocol, f/u with counselor re jail Rx plans
[2018-09-08] MEDS: chlordiazePOXIDE HCL 10 MG CAPSULE PO SCH (22:14)
[2018-09-08] MEDS: OLANZapine 10 MG TABLET PO SCH (22:14)
[2018-09-08] MEDS: THIAMINE HCL 100 MG TABLET (FP) PO SCH (22:14)
[2018-09-09] MEDS: chlordiazePOXIDE HCL 10 MG CAPSULE PO SCH ×2 (06:02→10:20)
--- NOTE | 2018-09-09 08:35 | DS ---
[facility] Detox Discharge Summary Admission Date: 09/05/18 Discharge Date: 09/09/18 - History Present History: Alcohol Dependence, Cocaine Dependence - Physical Exam Results Vital Signs: Vital Signs Temperature 97.5 F L 09/09/18 06:02 Pulse Rate 91 H 09/09/18 06:02 Respiratory Rate 18 09/09/18 06:02 Blood Pressure 129/77 09/09/18 06:02 O2 Sat by Pulse Oximetry (%) - Treatment Hospital Course: Detox Protocol Followed, Detoxed Safely, Responded well, Discharged Condition Good, Rehab Referral Accepted - Medication Discharge Medications: Ambulatory Orders Olanzapine [ZyPREXA -] 10 mg PO HS #30 tablet 12/21/14 Paroxetine HCl [Paxil -] 10 mg PO DAILY #30 tablet 08/28/17 Amlodipine Besylate [Norvasc -] 10 mg PO DAILY #30 tablet 09/27/17 Aspirin [ASA -] 81 mg PO DAILY #30 tab.chew 09/27/17 Hydrochlorothiazide [Hctz -] 25 mg PO DAILY 09/05/18 - Diagnosis (1) Alcohol dependence Current Visit: No Status: Acute (2) Alcohol dependence with uncomplicated withdrawal Current Visit: No Status: Acute (3) Cocaine dependence Current Visit: Yes Status: Chronic (4) Insomnia Current Visit: No Status: Acute (5) Substance-induced sleep disorder Current Visit: No Status: Acute (6) Uses crutches Current Visit: No Status: Acute (7) Acid reflux Current Visit: No Status: Chronic (8) Arthritis of both knees Current Visit: No Status: Chronic (9) Essential hypertension Current Visit: No Status: Chronic (10) Gout Current Visit: No Status: Chronic Qualifiers: Gout site: multiple sites Gout etiology: other secondary cause Chronicity : chronic Presence of tophus: without tophus Qualified Code(s): [id number] - Other secondary chronic gout, multiple sites, without tophus (tophi) (11) Hypercholesteremia Current Visit: Yes Status: Chronic (12) Nicotine dependence Current Visit: Yes Status: Chronic Qualifiers: Nicotine product type: cigarettes Substance use status: uncomplicated Qualified Code(s): F17.210 - Nicotine dependence, cigarettes, uncomplicated (13) Schizophrenia Current Visit: No Status: Chronic Qualifiers: Schizophrenia type: unspecified Qualified Code(s): F20.9 - Schizophrenia, unspecified (14) Use of cane as ambulatory aid Current Visit: No Status: Chronic (15) Weight loss Current Visit: No Status: Chronic (16) Bipolar II disorder Current Visit: No Status: Suspected (17) Schizoaffective disorder Current Visit: No Status: Ruled-out - AMA Did Patient Leave Against Medical Advice: No ([facility])
[2018-09-09] MEDS: HYDROCHLOROTHIAZIDE 25 MG TABLET (FP) PO SCH (10:19)
[2018-09-09] MEDS: PARoxetine HCL 10 MG TABLET (FP) PO SCH (10:20)
[2018-09-09] MEDS: PRENATAL VITAMINS W/ FOLIC ACID TABLET (FP) PO SCH (10:20)
[2018-09-09] MEDS: amLODIPine BESYLATE 10 MG TABLET (FP) PO SCH (10:20)
[2018-09-09 13:40] VITALS: BP 122/78; PULSE 107; TEMP 97.8
== END 2018-09-09 02:25 | disposition home or self-care (01) | DRG 774 ==
LOC: YASAS 12:47 → Y6N 17:44
PROVIDERS: ADMIT Neuromusculoskeletal Medicine & OMM; ATTEND Neuromusculoskeletal Medicine & OMM
PROC: HZ2ZZZZ Detoxification Services for Substance Abuse Treatment (ICD-10-PCS; principal; 2018-09-05)
DX: F10.230 Alcohol dependence with withdrawal, uncomplicated (principal); F14.20 Cocaine dependence, uncomplicated; F17.210 Nicotine dependence, cigarettes, uncomplicated; F31.81 Bipolar II disorder; F25.9 Schizoaffective disorder, unspecified; F19.282 Other psychoactive substance dependence with psychoactive substance-induced sleep disorder; I10 Essential (primary) hypertension; G47.00 Insomnia, unspecified; K21.9 Gastro-esophageal reflux disease without esophagitis; M13.862 Other specified arthritis, left knee; M13.861 Other specified arthritis, right knee; M1A.49X0 Other secondary chronic gout, multiple sites, without tophus (tophi); E78.00 Pure hypercholesterolemia, unspecified; J44.9 Chronic obstructive pulmonary disease, unspecified; R26.2 Difficulty in walking, not elsewhere classified; Z99.89 Dependence on other enabling machines and devices
CPT/HCPCS: 36415; 80053; 81003; 85027; 86593

== ENCOUNTER 2018-09-09 14:42 | Inpatient (IN) | payer OTHER ==
[2018-09-09] MEDS ORDERED: LOPERAMIDE HCL 2 MG CAPSULE PO PRN (15:38)
[2018-09-09] MEDS ORDERED: MAG HYDROX/AL HYDROX/SIMETH 30 ML UNIT-DOSE CUP PO PRN (15:38)
[2018-09-09] MEDS ORDERED: MAGNESIUM CITRATE 300 ML BOTTLE PO PRN (15:38)
[2018-09-09] MEDS ORDERED: MAGNESIUM HYDROX 2400MG/30ML ORAL SUSPENSION 30 ML CUP PO PRN (15:38)
[2018-09-09] MEDS ORDERED: ACETAMINOPHEN 325 MG TABLET (FP) PO PRN (15:38)
[2018-09-09] MEDS ORDERED: P-EPHED 60MG/TRIPROLIDI 2.5MG TABLET PO PRN (15:38)
[2018-09-09] MEDS ORDERED: MENTHOL/PHENOL 1 EACH UD MM PRN (15:38)
[2018-09-09] MEDS ORDERED: guaiFENesin/D-METHORPHAN HB 10 ML UNIT-DOSE CUPS PO PRN (15:38)
[2018-09-09] MEDS ORDERED: IBUPROFEN 400 MG TABLET (FP) PO PRN (15:38)
--- NOTE | 2018-09-09 15:40 | HP ---
[facility] Rehab Assess/Revision - Admission History Admitted to Rehab from: [facility] Date of Admission to Rehab: 09/09/2018 - Vital signs Vital Signs: NOTED; STABLE. - Findings Detox History & Physical reviewed: Yes Concur with findings: Yes Comments/Additional Findings: PATIENT'S MEDICAL / MEDICATION HISTORY REVIEWED PRIOR TO DISCHARGE FROM DETOX UNIT. PATIENT WAS DISCHARGED FROM DETOX UNIT TO BE TAKEN TO REHAB UNIT IN STABLE MEDICAL CONDITION. Inpatient Rehab Admission - Initial Determination Are CD services needed?: Yes Free of communicable disease: Yes Not in need of hospitalization: Yes - Rehab Admission Criteria Previous failed treatment: Yes Comorbidities: Yes Patient is meeting Inpatient Rehab admission criteria:: Yes
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
[2018-09-09] MEDS ORDERED: OLANZapine 5 MG TABLET PO SCH (22:00)
[2018-09-09] MEDS ORDERED: THIAMINE HCL 100 MG TABLET (FP) PO SCH (22:00)
[2018-09-09] MEDS ORDERED: OLANZapine 2.5 MG TABLET PO SCH (22:00)
[2018-09-09] MEDS ORDERED: MELATONIN 5 MG TABLETS PO PRN (22:00)
[2018-09-10 07:32] VITALS: TEMP 97.7
[2018-09-10 09:52] VITALS: BP 119/74; PULSE 86
[2018-09-10] MEDS ORDERED: PARoxetine HCL 10 MG TABLET (FP) PO SCH (10:00)
[2018-09-10] MEDS ORDERED: HYDROCHLOROTHIAZIDE 25 MG TABLET (FP) PO SCH (10:00)
[2018-09-10] MEDS ORDERED: ASPIRIN 81 MG CHEWABLE TABLETS PO SCH (10:00)
[2018-09-10] MEDS ORDERED: PRENATAL VITAMINS W/ FOLIC ACID TABLET (FP) PO SCH (10:00)
[2018-09-10] MEDS ORDERED: amLODIPine BESYLATE 10 MG TABLET (FP) PO SCH (10:00)
[2018-09-10] MEDS ORDERED: ALBUTEROL SO4 8 GM HFA INHALER IH PRN (14:52)
--- NOTE | 2018-09-10 14:52 | PN ---
[facility] Progress Note Note: PATIENT SEEN FOR REVIEW OF CXR RESULT. IMPRESSION OF CXR WHICH WAS DONE FOR + PPD SHOWS SIGNIFICANT COPD/BULLOUS EMPHYSEMA. NO ACUTE INTRATHORACIC ABNORMALITY SEEN, APICES CLEAR. PATIENT DENIES CP, SOB AND COUGH. PATIENT DENIES TREATMENT FOR COPD. + H/O TOBACCO USE 1/2PPD X 36 YEARS. ATIENT DENIES CP , SOB AND COUGH. PATIENT DENIES TREATMENT FOR COPD. + H/O TOBACCO USE 1/2PPD X 36 YEARS. Vital Signs Temperature 97.7 F 09/10/18 07:31 Pulse Rate 86 09/10/18 09:30 Respiratory Rate 18 09/10/18 09:30 Blood Pressure 119/74 09/10/18 09:30 O2 Sat by Pulse Oximetry (%) PE: ALERT AND ORIENTED X 3 SKIN WARM AND DRY CAR S1S2 RESP NO AUDIBLE WHEEZES, +DIMINISHED AT BASES O2 SATS 97% ON ROOM AIR, HR 93 A/P: COPD/BOLLOUS EMPHYSEMA WILL ORDER ALBUTEROL HFA PRN CONTINUE TO MONITOR CLINICALLY
--- NOTE | 2018-09-10 19:49 | PN ---
S Progress Note Note: Vital Signs Temperature 97.7 F 09/10/18 07:31 Pulse Rate 86 09/10/18 09:30 Respiratory Rate 18 09/10/18 09:30 Blood Pressure 119/74 09/10/18 09:30 O2 Sat by Pulse Oximetry (%) Patient reports he does no wish to continue rehab tx and left AMA.
== END 2018-09-10 20:04 | disposition left against medical advice (07) | DRG 770 ==
LOC: YASAS 14:42 → Y3W 15:04
PROVIDERS: ADMIT Neuromusculoskeletal Medicine & OMM; ATTEND Neuromusculoskeletal Medicine & OMM
PROC: HZ2ZZZZ Detoxification Services for Substance Abuse Treatment (ICD-10-PCS; principal; 2018-09-09)
DX: F10.230 Alcohol dependence with withdrawal, uncomplicated (principal); F14.20 Cocaine dependence, uncomplicated; F17.210 Nicotine dependence, cigarettes, uncomplicated; F20.9 Schizophrenia, unspecified; J43.8 Other emphysema; G47.00 Insomnia, unspecified; R26.2 Difficulty in walking, not elsewhere classified; Z99.89 Dependence on other enabling machines and devices; Z91.19 Patient's noncompliance with other medical treatment and regimen
CPT/HCPCS: 71046-TC-FY

== ENCOUNTER 2018-12-23 14:23 | Inpatient (IN) | payer OTHER ==
[2018-12-23 18:02] VITALS: BMI 20.2
--- NOTE | 2018-12-23 20:40 | HP ---
CIWA Score - Admission Criteria OASAS Guidelines: Admission for Medically Managed Detox: Requires at least one of the followin. CIWA greater than 12 2. Seizures within the past 24 hours 3. Delirium tremens within the past 24 hours 4. Hallucinations within the past 24 hours 5. Acute intervention needed for co occurring medical disorder 6. Acute intervention needed for co occurring psychiatric disorder 7. Severe withdrawal that cannot be handled at a lower level of care (continued vomiting, continued diarrhea, abnormal vital signs) requiring intravenous medication and/or fluids 8. Admission ROS [facility] - HPI Chief Complaint: Seeking admission to Rehab Allergies/Adverse Reactions: Allergies Allergy/AdvReac Type Severity Reaction Status Date / Time No Known Allergies Allergy Verified 12/23/18 17:55 History of Present Illness: 53 years old male is seeking admission to Rehab. Patient was in Rehab. in September and left against medical advice. Patient reports that he will complete Rehabilitation this time. He has medical history of hypertension, hypercholesterolemia, Anemia and Gout. He denies suicidal ideation at this time. Patient was transferred from [facility]. Exam Limitations: No Limitations - Ebola screening Have you traveled outside of the country in the last 21 days: No (N) Have you had contact with anyone from an Ebola affected area: No Have you been sick,other than usual withdrawal symptoms: No Do you have a fever: No - Review of Systems Constitutional: No Symptoms Reported EENT: reports: No Symptoms Reported Respiratory: reports: No Symptoms reported Cardiac: reports: No Symptoms Reported GI: reports: No Symptoms Reported : reports: No Symptoms Reported Musculoskeletal: reports: No Symptoms Reported Integumentary: reports: No Symptoms Reported Neuro: reports: No Symptoms reported Endocrine: reports: No Symptoms Reported Hematology: reports: No Symptoms Reported Psychiatric: reports: No Sypmtoms Reported Other Systems: Reviewed and Negative Patient History - Patient Medical History Hx Anemia: Yes (not taking any iron supplement) Hx Asthma: No Hx Chronic Obstructive Pulmonary Disease (COPD): No Hx Cancer: No Hx Cardiac Disorders: No Hx Congestive Heart Failure: No Hx Hypertension: Yes Hx Hypercholesterolemia: Yes (SIMVASTATIN) Hx Pacemaker: No HX Cerebrovascular Accident: No Hx Seizures: No Hx Dementia: No Hx Diabetes: No Hx Gastrointestinal Disorders: Yes Hx Liver Disease: No Hx Genitourinary Disorders: No Hx Sexually Transmitted Disorders: No Hx Renal Disease (ESRD): No Hx Thyroid Disease: No Hx Human Immunodeficiency Virus (HIV): No (negative) Hx Hepatitis C: No Hx Depression: No Hx Suicide Attempt: No Hx Bipolar Disorder: Yes Hx Schizophrenia: Yes - Patient Surgical History Past Surgical History: Yes Hx Neurologic Surgery: No Hx Cataract Extraction: No Hx Cardiac Surgery: No Hx Lung Surgery: No Hx Breast Surgery: No Hx Breast Biopsy: No Hx Abdominal Surgery: No Hx Appendectomy: No Hx Cholecystectomy: No Hx Genitourinary Surgery: No Hx Section: No Hx Orthopedic Surgery: Yes (fx, right leg (fall) in 02/2018) Anesthesia Reaction: No - PPD History Previous Implant?: No (PPD POSITIVE. TREATED WITH INH AND B-12) PPD to be Administered?: No - Reproductive History Patient is a Female of Child Bearing Age (11 -55 yrs old): No (Male) - Smoking Cessation Smoking history: Current every day smoker Have you smoked in the past 12 months: Yes Aproximately how many cigarettes per day: 10 Cigars Per Day: 0 Hx Chewing Tobacco Use: No Initiated information on smoking cessation: Yes 'Breaking Loose' booklet given: 12/23/18 - Substance & Tx. History Hx Alcohol Use: Yes Hx Substance Use: No Substance Use Type: Alcohol Hx Substance Use Treatment: Yes ([facility] - Substances abused Alcohol Substance route: Oral Frequency: Daily Amount used: 10 CANS OF BEER Age of first use: 17 Date of last use: 12/16/18 Cocaine Substance route: Smoking Frequency: 1-3 times last 30 days Amount used: $50-100 Age of first use: 19 Date of last use: 12/16/18 Family Disease History - Family Disease History Family Disease History: Diabetes: Mother (breast/), CA: Mother, Other: Father (htn CIROHSIS LIVER/), Brother (HIV/), Sister (no contact ) Admission Physical Exam S - Vital Signs Vital Signs: Vital Signs - 24 hr 12/23/18 17:58 Temperature 97.8 F Pulse Rate 101 H Respiratory 20 Rate Blood Pressure 109/70 - Physical General Appearance: Yes: Within Normal Limits HEENTM: Yes: Normal ENT Inspection, Normal Voice, TETO Respiratory: Yes: Lungs Clear, Normal Breath Sounds, No Respiratory Distress Neck: Yes: Supple Breast: Yes: Breast Exam Deferred Cardiology: Yes: Tachycardia Abdominal: Yes: Normal Bowel Sounds Genitourinary: Yes: Within Normal Limits Back: Yes: Normal Inspection Musculoskeletal: Yes: Within Normal Limits Extremities: Yes: Normal Inspection Neurological: Yes: Within Normal Limits Integumentary: Yes: Within Normal Limits Lymphatic: Yes: Within Normal Limits - Diagnostic (1) Anemia Current Visit: Yes Status: Chronic Qualifiers: Anemia type: unspecified type Qualified Code(s): D64.9 - Anemia, unspecified (2) Alcohol dependence Current Visit: Yes Status: Chronic Qualifiers: Substance use status: uncomplicated Qualified Code(s): F10.20 - Alcohol dependence, uncomplicated (3) Essential hypertension Current Visit: Yes Status: Chronic (4) Gout Current Visit: Yes Status: Chronic Qualifiers: Gout site: multiple sites Gout etiology: other secondary cause Chronicity : chronic Presence of tophus: without tophus Qualified Code(s): [id number] - Other secondary chronic gout, multiple sites, without tophus (tophi) (5) Hypercholesteremia Current Visit: Yes Status: Chronic (6) Nicotine dependence Current Visit: Yes Status: Chronic Qualifiers: Nicotine product type: cigarettes Substance use status: uncomplicated Qualified Code(s): F17.210 - Nicotine dependence, cigarettes, uncomplicated Cleared for Admission S - Detox or Rehab [facility] Level of Care: Observation Bed Claeared for Rehab Admission: Yes Breathalyzer - Breathalyzer Breathalyzer: 0 Urine Drug Screen - Test Device Lot number: [id number] Expiration date: 11/03/19 - Control Is test valid?: Yes - Results Drug screen NEGATIVE: No Urine drug screen results: BZO-Benzodiazepines Inpatient Rehab Admission - Rehab Decision to Admit Inpatient rehab admission?: Yes - Initial Determination Are CD services needed?: No Free of communicable disease: Yes Not in need of hospitalization: Yes - Rehab Admission Criteria Previous failed treatment: Yes Poor recovery environment: Yes Comorbidities: Yes Lacks judgement: No Patient is meeting Inpatient Rehab admission criteria:: Yes
[2018-12-23] MEDS ORDERED: ACETAMINOPHEN 325 MG TABLET (FP) PO PRN (20:56)
[2018-12-23] MEDS ORDERED: MENTHOL/PHENOL 1 EACH UD MM PRN (20:56)
[2018-12-23] MEDS ORDERED: MAGNESIUM CITRATE 300 ML BOTTLE PO PRN (20:56)
[2018-12-23] MEDS ORDERED: MAGNESIUM HYDROX 2400MG/30ML ORAL SUSPENSION 30 ML CUP PO PRN (20:56)
[2018-12-23] MEDS ORDERED: IBUPROFEN 400 MG TABLET (FP) PO PRN (20:56)
[2018-12-23] MEDS ORDERED: NICOTINE POLACRILEX 2 MG GUM BC PRN (20:56)
[2018-12-23] MEDS ORDERED: guaiFENesin 200 MG/10 ML 10 ML UNIT-DOSE CUPS PO PRN (20:56)
[2018-12-23] MEDS ORDERED: MAG HYDROX/AL HYDROX/SIMETH 30 ML UNIT-DOSE CUP PO PRN (20:56)
[2018-12-23] MEDS ORDERED: LOPERAMIDE HCL 2 MG CAPSULE PO PRN (20:56)
[2018-12-23] MEDS ORDERED: P-EPHED 60MG/TRIPROLIDI 2.5MG TABLET PO PRN (20:56)
[2018-12-23] MEDS ORDERED: MELATONIN 5 MG TABLETS PO PRN (22:00)
[2018-12-23] MEDS: THIAMINE HCL 100 MG TABLET (FP) PO SCH (22:04)
[2018-12-23 23:05] LABS: PH,URINE 5.5 (5.0-8.0); URINE APPEARANCE CLEAR; URINE BILIRUBIN NEGATIVE (NEGATIVE); URINE COLOR YELLOW; URINE GLUCOSE (UA) NEGATIVE (NEGATIVE); URINE KETONE NEGATIVE (NEGATIVE); URINE LEUK ESTERASE NEGATIVE (NEGATIVE); URINE NITRITE NEGATIVE (NEGATIVE); URINE PROTEIN NEGATIVE (NEGATIVE); URINE UROBILINOGEN 0.2 mg/dL (0.2-1.0)
--- NOTE | 2018-12-24 10:02 | CONSULT ---
[facility] Psychiatric Consult - Data Date of interview: 12/24/18 Admission source: [facility] Identifying data: Patient is a 53 year old single male, father of one, unemployed, domiciled, and is supported by [facility]. This is one of multiple admissions to rehab for patient. Patient admitted to for alcohol and cocaine dependence. Substance Abuse History: Smoking Cessation. Smoking history: Current every day smoker. Have you smoked in the past 12 months: Yes. Aproximately how many cigarettes per day: 10. Cigars Per Day: 0. Hx Chewing Tobacco Use: No. Initiated information on smoking cessation: Yes. 'Breaking Loose' booklet given : 12/23/18. - Substance & Tx. History. Hx Alcohol Use: Yes. Hx Substance Use : No. Substance Use Type: Alcohol. Hx Substance Use Treatment: Yes ([facility] - Substances abused. Alcohol. Substance route: Oral. Frequency: Daily. Amount used: 10 CANS OF BEER. Age of first use : 17. Date of last use: 12/16/18. Cocaine. Substance route: Smoking. Frequency: 1-3 times last 30 days. Amount used: $50-100. Age of first use: 19. Date of last use: 12/16/18 Medical History: Remarkable for positive PPD, anemia, antecedent of orthosurgery in February 2017 (right knee + right leg), hypertension, dyslipidemia, gout and chronic arthritis. Psychiatric History: Patient's onset of mental illness occured at 10 years of age after he started to exhibit auditory/visual hallucinations and paranoia. He reports h/o 3-4 psychiatric hospitalizations ([facility] and [facility] ). Diagnosis of bipolar disorder and schizophrenia. Mr. Murphy is receiving outpatient psychiatric care at [facility] and is prescribed paxil 20mg + Zyprexa 10mg. Patient with a history of sub-optimal adherence to medications and outpatient treatment. Patient denies h/o suicide attempt. No psychosis noted. Physical/Sexual Abuse/Trauma History: denies. Mental Status Exam - Mental Status Exam Alert and Oriented to: Time, Place, Person Cognitive Function: Good Patient Appearance: Well Groomed Mood: Hopeful Affect: Appropriate Patient Behavior: Appropriate, Cooperative Speech Pattern: Appropriate Voice Loudness: Normal Thought Process: Goal Oriented Thought Disorder: Not Present Hallucinations: Denies Suicidal Ideation: Denies Homicidal Ideation: Denies Insight/Judgement: Poor Sleep: Fair Appetite: Fair Muscle strength/Tone: Normal Gait/Station: Other (Patient ambulates with a cane.) Psychiatric Findings - Problem List ([place] 1, 2,3) (1) Alcohol dependence Current Visit: Yes Status: Chronic Qualifiers: Substance use status: uncomplicated Qualified Code(s): F10.20 - Alcohol dependence, uncomplicated (2) Schizophrenia Current Visit: Yes Status: Chronic Qualifiers: Schizophrenia type: unspecified Qualified Code(s): F20.9 - Schizophrenia, unspecified Comment: As per records.Patient is on olanzapine.Enrolled in OPD care at [facility].Non compliant with medications for past two months. (3) Nicotine dependence Current Visit: Yes Status: Chronic Qualifiers: Nicotine product type: cigarettes Substance use status: uncomplicated Qualified Code(s): F17.210 - Nicotine dependence, cigarettes, uncomplicated - Initial Treatment Plan Initial Treatment Plan: Psychoeducation provided. Rehab in progress. Will order Paxil 20mg + Zyprexa 10mg. Benefits and side effects discussed. Verbal consent given.
[2018-12-24] MEDS: amLODIPine BESYLATE 10 MG TABLET (FP) PO SCH (10:26)
[2018-12-24] MEDS: PRENATAL VITAMINS W/ FOLIC ACID TABLET (FP) PO SCH (10:26)
[2018-12-24] MEDS: HYDROCHLOROTHIAZIDE 25 MG TABLET (FP) PO SCH (10:26)
[2018-12-24] MEDS: NICOTINE 14 MG/24 HOURS TOPICAL PATCH TD SCH (10:26)
[2018-12-24] MEDS: PARoxetine HCL 20 MG TABLET PO SCH (12:02)
--- NOTE | 2018-12-24 12:15 | EKG ---
Test Reason : Blood Pressure : / mmHG Vent. Rate : 082 BPM Atrial Rate : 082 BPM P-R Int : 182 ms QRS Dur : 086 ms QT Int : 398 ms P-R-T Axes : 065 056 071 degrees QTc Int : 464 ms NORMAL SINUS RHYTHM NORMAL ECG WHEN COMPARED WITH ECG OF 27-AUG-2017 18:48, NO SIGNIFICANT CHANGE WAS FOUND Confirmed by MD Adrian, Javier ([id number]) on 12/24/2018 12:15:23 PM Referred By: [facility] [place] Confirmed By:Javier Campbell MD
[2018-12-24 12:29] LABS: HEMATOCRIT 36.7 % (35.4-49); HEMOGLOBIN 12.1 GM/dL (11.7-16.9); MCH 26.9 pg (25.7-33.7); MEAN CELL VOLUME 81.7 fl (80-96); PLATELET COUNT 221 K/MM3 (134-434); RDW 15.5 % (11.9-15.9); WHITE BLOOD COUNT 4.6 K/mm3 (4.0-10.0)
[2018-12-24 12:45] LABS: ALBUMIN 3.2 g/dl (3.4-5.0); BILIRUBIN,TOTAL 0.2 mg/dL (0.2-1); CALCIUM 8.9 mg/dL (8.5-10.1); POTASSIUM 3.8 mmol/L (3.5-5.1); TOT PROT 6.9 g/dl (6.4-8.2)
[2018-12-24] MEDS: THIAMINE HCL 100 MG TABLET (FP) PO SCH (21:38)
[2018-12-24] MEDS: OLANZapine 10 MG TABLET PO SCH (21:38)
[2018-12-25] MEDS: HYDROCHLOROTHIAZIDE 25 MG TABLET (FP) PO SCH (10:32)
[2018-12-25] MEDS: PRENATAL VITAMINS W/ FOLIC ACID TABLET (FP) PO SCH (10:32)
[2018-12-25] MEDS: amLODIPine BESYLATE 10 MG TABLET (FP) PO SCH (10:32)
[2018-12-25] MEDS: NICOTINE 14 MG/24 HOURS TOPICAL PATCH TD SCH (10:33)
[2018-12-25] MEDS: PARoxetine HCL 20 MG TABLET PO SCH (10:33)
[2018-12-25] MEDS: THIAMINE HCL 100 MG TABLET (FP) PO SCH (21:38)
[2018-12-25] MEDS: OLANZapine 10 MG TABLET PO SCH (21:38)
[2018-12-26] MEDS: HYDROCHLOROTHIAZIDE 25 MG TABLET (FP) PO SCH (10:17)
[2018-12-26] MEDS: PARoxetine HCL 20 MG TABLET PO SCH (10:17)
[2018-12-26] MEDS: PRENATAL VITAMINS W/ FOLIC ACID TABLET (FP) PO SCH (10:17)
[2018-12-26] MEDS: amLODIPine BESYLATE 10 MG TABLET (FP) PO SCH (10:17)
[2018-12-26] MEDS: NICOTINE 14 MG/24 HOURS TOPICAL PATCH TD SCH (10:17)
[2018-12-26] MEDS: OLANZapine 10 MG TABLET PO SCH (21:27)
[2018-12-26] MEDS: THIAMINE HCL 100 MG TABLET (FP) PO SCH (21:27)
[2018-12-27] MEDS: PARoxetine HCL 20 MG TABLET PO SCH (10:30)
[2018-12-27] MEDS: HYDROCHLOROTHIAZIDE 25 MG TABLET (FP) PO SCH (10:30)
[2018-12-27] MEDS: amLODIPine BESYLATE 10 MG TABLET (FP) PO SCH (10:30)
[2018-12-27] MEDS: PRENATAL VITAMINS W/ FOLIC ACID TABLET (FP) PO SCH (10:30)
[2018-12-27] MEDS: NICOTINE 14 MG/24 HOURS TOPICAL PATCH TD SCH (10:31)
[2018-12-27] MEDS: OLANZapine 10 MG TABLET PO SCH (21:57)
[2018-12-27] MEDS: THIAMINE HCL 100 MG TABLET (FP) PO SCH (21:57)
[2018-12-28] MEDS: NICOTINE 14 MG/24 HOURS TOPICAL PATCH TD SCH (10:27)
[2018-12-28] MEDS: PARoxetine HCL 20 MG TABLET PO SCH (10:28)
[2018-12-28] MEDS: amLODIPine BESYLATE 10 MG TABLET (FP) PO SCH (10:28)
[2018-12-28] MEDS: PRENATAL VITAMINS W/ FOLIC ACID TABLET (FP) PO SCH (10:28)
[2018-12-28] MEDS: HYDROCHLOROTHIAZIDE 25 MG TABLET (FP) PO SCH (10:28)
[2018-12-28] MEDS: OLANZapine 10 MG TABLET PO SCH (21:35)
[2018-12-28] MEDS: THIAMINE HCL 100 MG TABLET (FP) PO SCH (21:35)
[2018-12-29] MEDS: PRENATAL VITAMINS W/ FOLIC ACID TABLET (FP) PO SCH (10:25)
[2018-12-29] MEDS: NICOTINE 14 MG/24 HOURS TOPICAL PATCH TD SCH (10:25)
[2018-12-29] MEDS: amLODIPine BESYLATE 10 MG TABLET (FP) PO SCH (10:25)
[2018-12-29] MEDS: HYDROCHLOROTHIAZIDE 25 MG TABLET (FP) PO SCH (10:25)
[2018-12-29] MEDS: PARoxetine HCL 20 MG TABLET PO SCH (10:25)
[2018-12-29] MEDS: OLANZapine 10 MG TABLET PO SCH (21:32)
[2018-12-29] MEDS: THIAMINE HCL 100 MG TABLET (FP) PO SCH (21:32)
[2018-12-30] MEDS: PARoxetine HCL 20 MG TABLET PO SCH (10:11)
[2018-12-30] MEDS: PRENATAL VITAMINS W/ FOLIC ACID TABLET (FP) PO SCH (10:11)
[2018-12-30] MEDS: amLODIPine BESYLATE 10 MG TABLET (FP) PO SCH (10:11)
[2018-12-30] MEDS: NICOTINE 14 MG/24 HOURS TOPICAL PATCH TD SCH (10:12)
[2018-12-30] MEDS: HYDROCHLOROTHIAZIDE 25 MG TABLET (FP) PO SCH (10:12)
[2018-12-30] MEDS: THIAMINE HCL 100 MG TABLET (FP) PO SCH (21:47)
[2018-12-30] MEDS: OLANZapine 10 MG TABLET PO SCH (21:47)
[2018-12-31] MEDS: PARoxetine HCL 20 MG TABLET PO SCH (10:58)
[2018-12-31] MEDS: NICOTINE 14 MG/24 HOURS TOPICAL PATCH TD SCH (10:58)
[2018-12-31] MEDS: amLODIPine BESYLATE 10 MG TABLET (FP) PO SCH (10:58)
[2018-12-31] MEDS: PRENATAL VITAMINS W/ FOLIC ACID TABLET (FP) PO SCH (10:58)
[2018-12-31] MEDS: HYDROCHLOROTHIAZIDE 25 MG TABLET (FP) PO SCH (10:58)
[2018-12-31] MEDS: THIAMINE HCL 100 MG TABLET (FP) PO SCH (21:39)
[2018-12-31] MEDS: OLANZapine 10 MG TABLET PO SCH (21:39)
[2019-01-01] MEDS: NICOTINE 14 MG/24 HOURS TOPICAL PATCH TD SCH (10:17)
[2019-01-01] MEDS: amLODIPine BESYLATE 10 MG TABLET (FP) PO SCH (10:17)
[2019-01-01] MEDS: PRENATAL VITAMINS W/ FOLIC ACID TABLET (FP) PO SCH (10:17)
[2019-01-01] MEDS: PARoxetine HCL 20 MG TABLET PO SCH (10:17)
[2019-01-01] MEDS: HYDROCHLOROTHIAZIDE 25 MG TABLET (FP) PO SCH (10:17)
[2019-01-01] MEDS: OLANZapine 10 MG TABLET PO SCH (21:40)
[2019-01-01] MEDS: THIAMINE HCL 100 MG TABLET (FP) PO SCH (21:40)
[2019-01-02] MEDS: HYDROCHLOROTHIAZIDE 25 MG TABLET (FP) PO SCH (10:35)
[2019-01-02] MEDS: NICOTINE 14 MG/24 HOURS TOPICAL PATCH TD SCH (10:35)
[2019-01-02] MEDS: PRENATAL VITAMINS W/ FOLIC ACID TABLET (FP) PO SCH (10:35)
[2019-01-02] MEDS: PARoxetine HCL 20 MG TABLET PO SCH (10:35)
[2019-01-02] MEDS: amLODIPine BESYLATE 10 MG TABLET (FP) PO SCH (10:35)
[2019-01-02] MEDS: OLANZapine 10 MG TABLET PO SCH (21:37)
[2019-01-02] MEDS: THIAMINE HCL 100 MG TABLET (FP) PO SCH (21:37)
[2019-01-03] MEDS: HYDROCHLOROTHIAZIDE 25 MG TABLET (FP) PO SCH (10:25)
[2019-01-03] MEDS: PARoxetine HCL 20 MG TABLET PO SCH (10:25)
[2019-01-03] MEDS: NICOTINE 14 MG/24 HOURS TOPICAL PATCH TD SCH (10:25)
[2019-01-03] MEDS: amLODIPine BESYLATE 10 MG TABLET (FP) PO SCH (10:25)
[2019-01-03] MEDS: PRENATAL VITAMINS W/ FOLIC ACID TABLET (FP) PO SCH (10:25)
[2019-01-03] MEDS: THIAMINE HCL 100 MG TABLET (FP) PO SCH (22:16)
[2019-01-03] MEDS: OLANZapine 10 MG TABLET PO SCH (22:16)
[2019-01-04] MEDS: NICOTINE 14 MG/24 HOURS TOPICAL PATCH TD SCH (10:16)
[2019-01-04] MEDS: HYDROCHLOROTHIAZIDE 25 MG TABLET (FP) PO SCH (10:16)
[2019-01-04] MEDS: amLODIPine BESYLATE 10 MG TABLET (FP) PO SCH (10:16)
[2019-01-04] MEDS: PARoxetine HCL 20 MG TABLET PO SCH (10:16)
[2019-01-04] MEDS: PRENATAL VITAMINS W/ FOLIC ACID TABLET (FP) PO SCH (10:16)
[2019-01-04] MEDS: OLANZapine 10 MG TABLET PO SCH (21:40)
[2019-01-04] MEDS: THIAMINE HCL 100 MG TABLET (FP) PO SCH (21:40)
[2019-01-05] MEDS: NICOTINE 14 MG/24 HOURS TOPICAL PATCH TD SCH (10:23)
[2019-01-05] MEDS: HYDROCHLOROTHIAZIDE 25 MG TABLET (FP) PO SCH (10:23)
[2019-01-05] MEDS: amLODIPine BESYLATE 10 MG TABLET (FP) PO SCH (10:23)
[2019-01-05] MEDS: PRENATAL VITAMINS W/ FOLIC ACID TABLET (FP) PO SCH (10:23)
[2019-01-05] MEDS: PARoxetine HCL 20 MG TABLET PO SCH (10:23)
[2019-01-05 21:12] VITALS: BP 152/98; PULSE 96; TEMP 98.5
--- NOTE | 2019-01-05 22:20 | HP ---
CIWA Score - Admission Criteria OASAS Guidelines: Admission for Medically Managed Detox: Requires at least one of the followin. CIWA greater than 12 2. Seizures within the past 24 hours 3. Delirium tremens within the past 24 hours 4. Hallucinations within the past 24 hours 5. Acute intervention needed for co occurring medical disorder 6. Acute intervention needed for co occurring psychiatric disorder 7. Severe withdrawal that cannot be handled at a lower level of care (continued vomiting, continued diarrhea, abnormal vital signs) requiring intravenous medication and/or fluids 8. Admission ROS [facility] - HPI Allergies/Adverse Reactions: Allergies Allergy/AdvReac Type Severity Reaction Status Date / Time No Known Allergies Allergy Verified 12/23/18 17:55 - Ebola screening Have you traveled outside of the country in the last 21 days: No (N) Have you had contact with anyone from an Ebola affected area: No Have you been sick,other than usual withdrawal symptoms: No Do you have a fever: No Patient History - Patient Medical History Hx Anemia: Yes (not taking any iron supplement) Hx Asthma: No Hx Chronic Obstructive Pulmonary Disease (COPD): No Hx Cancer: No Hx Cardiac Disorders: No Hx Congestive Heart Failure: No Hx Hypertension: Yes Hx Hypercholesterolemia: Yes (SIMVASTATIN) Hx Pacemaker: No HX Cerebrovascular Accident: No Hx Seizures: No Hx Dementia: No Hx Diabetes: No Hx Gastrointestinal Disorders: Yes Hx Liver Disease: No Hx Genitourinary Disorders: No Hx Sexually Transmitted Disorders: No Hx Renal Disease (ESRD): No Hx Thyroid Disease: No Hx Human Immunodeficiency Virus (HIV): No (negative) Hx Hepatitis C: No Hx Depression: No Hx Suicide Attempt: No Hx Bipolar Disorder: Yes Hx Schizophrenia: Yes - Patient Surgical History Past Surgical History: Yes Hx Neurologic Surgery: No Hx Cataract Extraction: No Hx Cardiac Surgery: No Hx Lung Surgery: No Hx Breast Surgery: No Hx Breast Biopsy: No Hx Abdominal Surgery: No Hx Appendectomy: No Hx Cholecystectomy: No Hx Genitourinary Surgery: No Hx Section: No Hx Orthopedic Surgery: Yes (fx, right leg (fall) in 02/2018) Anesthesia Reaction: No - PPD History Previous Implant?: No (PPD POSITIVE. TREATED WITH INH AND B-12) - Smoking Cessation Smoking history: Current every day smoker Have you smoked in the past 12 months: Yes Aproximately how many cigarettes per day: 10 Cigars Per Day: 0 Hx Chewing Tobacco Use: No Initiated information on smoking cessation: Yes - Substances abused Alcohol Substance route: Oral Frequency: Daily Amount used: 10 CANS OF BEER Age of first use: 17 Date of last use: 12/16/18 Cocaine Substance route: Smoking Frequency: 1-3 times last 30 days Amount used: $50-100 Age of first use: 19 Date of last use: 12/16/18 Family Disease History - Family Disease History Family Disease History: Diabetes: Mother (breast/), CA: Mother, Other: Father (htn CIROHSIS LIVER/), Brother (HIV/), Sister (no contact ) Admission Physical Exam [facility] - Vital Signs Vital Signs: Vital Signs - 24 hr 01/05/19 01/05/19 01/05/19 00:30 03:30 07:26 Temperature Pulse Rate 91 H Respiratory 18 18 18 Rate Blood Pressure 01/05/19 01/05/19 10:00 21:11 Temperature 98.5 F Pulse Rate 90 96 H Respiratory 18 Rate Blood Pressure 101/67 152/98 Breathalyzer - Breathalyzer Breathalyzer: 0 Urine Drug Screen - Test Device Lot number: [id number] Expiration date: 11/03/19 - Control Is test valid?: Yes - Results Drug screen NEGATIVE: No Urine drug screen results: BZO-Benzodiazepines
--- NOTE | 2019-01-06 06:39 | PN ---
[facility] Progress Note Note: LATE ENTRY FOR 01/05/2019 @2220 Discharge Summary Patient Name: TIFFANY MÉNDEZ Date of : 67 Patient Status: Inpatient Attending Provider: Mala Martinez Date: 01/06/19 06:39 Initialization Date: 01/06/19 06:39 Discharge Summary Admission Date: 12/23/18 Discharge Date: 01/05/19 - History Present History: Alcohol Dependence Additional Comments: CLIENT REQUESTING TO BE DISCHARGED. STATED FOR PERSONAL REASONS AND DID NOT WANT TO SHARE. HE WAS NOT RECEPTIVE TO ANY DISCUSSION ABOUT CONTINUING TXMENT OR WAITING TO SEE COUNSELOR THE FOLLOWING MORNING. HE IS A/O X3 WITH NO COMPLAINTS AND NAD. A/O X3. DENIES SI/HI/ AVH. Pertinent Past History: HTN. HLD,ANEMIA, NICOTINE DEP, SCHIZOPHRENIA - Physical Exam Results Vital Signs: Vital Signs Temperature 98.5 F 01/05/19 21:11 Pulse Rate 96 H 01/05/19 21:11 Respiratory Rate 18 01/05/19 21:11 Blood Pressure 152/98 01/05/19 21:11 O2 Sat by Pulse Oximetry (%) Pertinent Admission Physical Exam Findings: Laboratory Tests 12/23/18 12/24/18 12/24/18 23:00 08:10 08:10 WBC 4.6 RBC 4.50 Hgb 12.1 Hct 36.7 MCV 81.7 MCH 26.9 MCHC 33.0 RDW 15.5 Plt Count 221 MPV 8.0 Sodium 140 Potassium 3.8 Chloride 103 Carbon Dioxide 31 Anion Gap 6 L BUN 14 Creatinine 1.0 Est GFR (CKD-EPI)AfAm 99.85 Est GFR (CKD-EPI)NonAf 86.15 Random Glucose 93 Calcium 8.9 Total Bilirubin 0.2 AST 40 H ALT 47 Alkaline Phosphatase 75 Total Protein 6.9 Albumin 3.2 L Urine Color Yellow Urine Appearance Clear Urine pH 5.5 Ur Specific [place] 1.018 Urine Protein Negative Urine Glucose (UA) Negative Urine Ketones Negative Urine Blood Negative Urine Nitrite Negative Urine Bilirubin Negative Urine Urobilinogen 0.2 Ur Leukocyte Esterase Negative RPR Titer 12/24/18 08:10 WBC RBC Hgb Hct MCV MCH MCHC RDW Plt Count MPV Sodium Potassium Chloride Carbon Dioxide Anion Gap BUN Creatinine Est GFR (CKD-EPI)AfAm Est GFR (CKD-EPI)NonAf Random Glucose Calcium Total Bilirubin AST ALT Alkaline Phosphatase Total Protein Albumin Urine Color Urine Appearance Urine pH Ur Specific [place] Urine Protein Urine Glucose (UA) Urine Ketones Urine Blood Urine Nitrite Urine Bilirubin Urine Urobilinogen Ur Leukocyte Esterase RPR Titer Nonreactive - Treatment Hospital Course: Discharged Condition Good Patient has Accepted a Rehab Referral to: [facility] - Medication Discharge Medications: Ambulatory Orders Olanzapine [ZyPREXA -] 10 mg PO HS #30 tablet 12/21/14 Amlodipine Besylate [Norvasc -] 10 mg PO DAILY #30 tablet 09/27/17 Hydrochlorothiazide [Hctz -] 25 mg PO DAILY 09/05/18 Paroxetine HCl [Paxil -] 20 mg PO DAILY 12/23/18 - Diagnosis (1) Alcohol dependence with uncomplicated withdrawal Status: Acute (2) Substance-induced sleep disorder Status: Chronic (3) Anemia Status: Chronic Qualifiers: Anemia type: unspecified type Qualified Code(s): D64.9 - Anemia, unspecified (4) Essential hypertension Status: Chronic (5) Hypercholesteremia Status: Chronic (6) Nicotine dependence Status: Chronic Qualifiers: Nicotine product type: cigarettes Substance use status: uncomplicated Qualified Code(s): F17.210 - Nicotine dependence, cigarettes, uncomplicated (7) Schizophrenia Status: Chronic Qualifiers: Schizophrenia type: unspecified Qualified Code(s): F20.9 - Schizophrenia, unspecified (8) Use of cane as ambulatory aid Status: Chronic - AMA Did Patient Leave Against Medical Advice: NO
--- NOTE | 2019-01-06 06:44 | DS ---
[facility] Detox Discharge Summary Admission Date: 12/23/18 Discharge Date: 01/05/19 - History Present History: Alcohol Dependence Additional Comments: CLIENT SIGNED OUT AMA. STATED FOR PERSONAL REASONS AND DID NOT WANT TO SHARE. HE IS A/O X3 WITH NO COMPLAINTS AND NAD. A/O X3. DENIES SI/HI/ AVH. Pertinent Past History: HTN. HLD,ANEMIA, NICOTINE DEP, SCHIZOPHRENIA - Physical Exam Results Vital Signs: Vital Signs Temperature 98.5 F 01/05/19 21:11 Pulse Rate 96 H 01/05/19 21:11 Respiratory Rate 18 01/05/19 21:11 Blood Pressure 152/98 01/05/19 21:11 O2 Sat by Pulse Oximetry (%) Pertinent Admission Physical Exam Findings: Laboratory Tests 12/23/18 12/24/18 12/24/18 23:00 08:10 08:10 WBC 4.6 RBC 4.50 Hgb 12.1 Hct 36.7 MCV 81.7 MCH 26.9 MCHC 33.0 RDW 15.5 Plt Count 221 MPV 8.0 Sodium 140 Potassium 3.8 Chloride 103 Carbon Dioxide 31 Anion Gap 6 L BUN 14 Creatinine 1.0 Est GFR (CKD-EPI)AfAm 99.85 Est GFR (CKD-EPI)NonAf 86.15 Random Glucose 93 Calcium 8.9 Total Bilirubin 0.2 AST 40 H ALT 47 Alkaline Phosphatase 75 Total Protein 6.9 Albumin 3.2 L Urine Color Yellow Urine Appearance Clear Urine pH 5.5 Ur Specific [place] 1.018 Urine Protein Negative Urine Glucose (UA) Negative Urine Ketones Negative Urine Blood Negative Urine Nitrite Negative Urine Bilirubin Negative Urine Urobilinogen 0.2 Ur Leukocyte Esterase Negative RPR Titer 12/24/18 08:10 WBC RBC Hgb Hct MCV MCH MCHC RDW Plt Count MPV Sodium Potassium Chloride Carbon Dioxide Anion Gap BUN Creatinine Est GFR (CKD-EPI)AfAm Est GFR (CKD-EPI)NonAf Random Glucose Calcium Total Bilirubin AST ALT Alkaline Phosphatase Total Protein Albumin Urine Color Urine Appearance Urine pH Ur Specific [place] Urine Protein Urine Glucose (UA) Urine Ketones Urine Blood Urine Nitrite Urine Bilirubin Urine Urobilinogen Ur Leukocyte Esterase RPR Titer Nonreactive - Treatment Hospital Course: Discharged Condition Good Patient has Accepted a Rehab Referral to: [facility] - Medication Discharge Medications: Ambulatory Orders Olanzapine [ZyPREXA -] 10 mg PO HS #30 tablet 12/21/14 Amlodipine Besylate [Norvasc -] 10 mg PO DAILY #30 tablet 09/27/17 Hydrochlorothiazide [Hctz -] 25 mg PO DAILY 09/05/18 Paroxetine HCl [Paxil -] 20 mg PO DAILY 12/23/18 - Diagnosis (1) Alcohol dependence with uncomplicated withdrawal Status: Acute (2) Substance-induced sleep disorder Status: Chronic (3) Anemia Status: Chronic Qualifiers: Anemia type: unspecified type Qualified Code(s): D64.9 - Anemia, unspecified (4) Essential hypertension Status: Chronic (5) Hypercholesteremia Status: Chronic (6) Nicotine dependence Status: Chronic Qualifiers: Nicotine product type: cigarettes Substance use status: uncomplicated Qualified Code(s): F17.210 - Nicotine dependence, cigarettes, uncomplicated (7) Schizophrenia Status: Chronic Qualifiers: Schizophrenia type: unspecified Qualified Code(s): F20.9 - Schizophrenia, unspecified (8) Use of cane as ambulatory aid Status: Chronic - AMA Did Patient Leave Against Medical Advice: Yes
== END 2019-01-05 21:32 | disposition home or self-care (01) | DRG 772 ==
LOC: YASAS 14:23 → Y5N 21:09
PROVIDERS: ADMIT Neuromusculoskeletal Medicine & OMM; ATTEND Neuromusculoskeletal Medicine & OMM
PROC: HZ42ZZZ Group Counseling for Substance Abuse Treatment, Cognitive-Behavioral (ICD-10-PCS; principal; 2018-12-23)
DX: F10.20 Alcohol dependence, uncomplicated (principal); F17.210 Nicotine dependence, cigarettes, uncomplicated; F20.9 Schizophrenia, unspecified; F31.9 Bipolar disorder, unspecified; I10 Essential (primary) hypertension; E78.5 Hyperlipidemia, unspecified; D64.9 Anemia, unspecified; E78.00 Pure hypercholesterolemia, unspecified; M1A.49X0 Other secondary chronic gout, multiple sites, without tophus (tophi); Z99.89 Dependence on other enabling machines and devices
CPT/HCPCS: 36415; 80053; 81003; 85027; 86593; 93005; 93010

== ENCOUNTER 2019-06-19 14:45 | Inpatient (IN) | payer OTHER ==
[2019-06-19 17:47] VITALS: BMI 23.8
--- NOTE | 2019-06-19 19:21 | HP ---
"CIWA Score Nausea/Vomitin-No Nausea/No Vomiting Muscle Tremors: 1-None Visible, but [place] Anxiety: 2 Agitation: 2 Paroxysmal Sweats: No Perspiration Orientation: 1-Uncertain about Date Tacttile Disturbances: 0-None Auditory Disturbances: 0-None Visual Disturbances: 2-Mild Sensitivity Headache: 2-Mild CIWA-Ar Total Score: 10 - Admission Criteria OASAS Guidelines: Admission for Medically Managed Detox: Requires at least one of the followin. CIWA greater than 12 2. Seizures within the past 24 hours 3. Delirium tremens within the past 24 hours 4. Hallucinations within the past 24 hours 5. Acute intervention needed for co occurring medical disorder 6. Acute intervention needed for co occurring psychiatric disorder 7. Severe withdrawal that cannot be handled at a lower level of care (continued vomiting, continued diarrhea, abnormal vital signs) requiring intravenous medication and/or fluids 8. Admitting History and Physical - Smoking History Smoking history: Current every day smoker Have you smoked in the past 12 months: Yes Aproximately how many cigarettes per day: 10 - Alcohol/Substance Use Hx Alcohol Use: Yes Admission ROS [facility] Allergies/Adverse Reactions: Allergies Allergy/AdvReac Type Severity Reaction Status Date / Time No Known Allergies Allergy Verified 06/19/19 17:34 History of Present Illness: This report was requested by: Mala Martinez | Reference #: [id number] Others' Prescriptions Patient Name: Lucian Murphy Date: 1965 Address: [address] [place] [address] Sex: Male Rx Written Rx Dispensed Drug Quantity Days Supply Prescriber Name 05/30/2019 05/30/2019 promethazine-codeine syrup 240ml 8 Marco Sandoval Patient Name: Lucian Murphy Date: 1965 Address: [address] [place] [address] Sex: Male Rx Written Rx Dispensed Drug Quantity Days Supply Prescriber Name 12/16/2018 12/16/2018 chlordiazepoxide 10 mg capsule 27 3 Annmarie Cook pt here requesting detox from etoh use , reports 3 x 6-pk beer /day since many years ago , latest use today , denies blackouts , reports tremors , denies seizures . cocaine : 50-100 4$ / day tobacco : 08/07 ppd pmhx : gout , insomnia ,htn reports non- compliance w/ BP meds , R LE ORIF 2018 2 fall down stairs while intoxicated , emphysema psych : bipolar d/o , paranoid SAD , depression Exam Limitations: No Limitations - Ebola screening Have you traveled outside of the country in the last 21 days: No Have you had contact with anyone from an Ebola affected area: No Do you have a fever: No - Review of Systems Constitutional: See HPI EENT: reports: No Symptoms Reported Respiratory: reports: No Symptoms reported Cardiac: reports: No Symptoms Reported GI: reports: See HPI : reports: No Symptoms Reported Musculoskeletal: reports: See HPI, Joint Stiffness (r knee) Integumentary: reports: No Symptoms Reported Neuro: reports: See HPI, Headache Endocrine: reports: No Symptoms Reported Psychiatric: reports: Orientated x3, Anxious Patient History - Patient Medical History Hx Anemia: Yes (not taking any iron supplement) Hx Asthma: No Hx Chronic Obstructive Pulmonary Disease (COPD): No Hx Cancer: No Hx Cardiac Disorders: No Hx Congestive Heart Failure: No Hx Hypertension: Yes Hx Hypercholesterolemia: Yes (SIMVASTATIN) Hx Pacemaker: No HX Cerebrovascular Accident: No Hx Seizures: No Hx Dementia: No Hx Diabetes: No Hx Gastrointestinal Disorders: Yes Hx Liver Disease: No Hx Genitourinary Disorders: No Hx Sexually Transmitted Disorders: No Hx Renal Disease (ESRD): No Hx Thyroid Disease: No Hx Human Immunodeficiency Virus (HIV): No (negative) Hx Hepatitis C: No Hx Depression: No Hx Suicide Attempt: No Hx Bipolar Disorder: Yes Hx Schizophrenia: Yes - Patient Surgical History Past Surgical History: Yes Hx Neurologic Surgery: No Hx Cataract Extraction: No Hx Cardiac Surgery: No Hx Lung Surgery: No Hx Breast Surgery: No Hx Breast Biopsy: No Hx Abdominal Surgery: No Hx Appendectomy: No Hx Cholecystectomy: No Hx Genitourinary Surgery: No Hx Section: No Hx Orthopedic Surgery: Yes (fx, right leg (fall) in 02/2018) Anesthesia Reaction: No - Smoking Cessation Smoking history: Current every day smoker Have you smoked in the past 12 months: Yes Aproximately how many cigarettes per day: 10 Cigars Per Day: 0 Hx Chewing Tobacco Use: No Initiated information on smoking cessation: Yes 'Breaking Loose' booklet given: 06/19/19 - Substances abused Alcohol Substance route: Oral Frequency: Daily Amount used: 4 to 6 packs/ 1 pint of vodka Age of first use: 17 Date of last use: 06/19/19 Cocaine Substance route: Smoking Frequency: 1-2 times per week Amount used: $50-100 Age of first use: 19 Date of last use: 06/18/19 Admission Physical Exam BHS - Vital Signs Vital Signs: Vital Signs - 24 hr 06/19/19 17:27 Temperature 97.5 F L Pulse Rate 97 H Respiratory 16 Rate Blood Pressure 153/99 - Physical General Appearance: Yes: Intoxicated, Anxious HEENTM: Yes: EOMI, Hearing grossly Normal, Normocephalic, Normal Voice Respiratory: Yes: Chest Non-Tender, Lungs Clear, No Respiratory Distress, No Accessory Muscle Use Neck: Yes: No masses,lesions,Nodules, Trachea in good position Cardiology: Yes: Regular Rhythm, Regular Rate, S1, S2, Tachycardia Abdominal: Yes: Non Tender, Soft Musculoskeletal: Yes: Other (ambulating w/ cane 2/2 R LE old frx) Extremities: Yes: Tremors, Swelling (r knee), Other (large deformity right knee , leg-length discrepancy ,) Neurological: Yes: Alert, Motor Strength 5/5, Normal Mood/Affect Integumentary: Yes: Warm - Diagnostic (1) Alcohol intoxication Current Visit: Yes Status: Acute Qualifiers: Complication of substance-induced condition: uncomplicated Qualified Code(s ): F10.920 - Alcohol use, unspecified with intoxication, uncomplicated (2) Alcohol dependence with uncomplicated withdrawal Current Visit: Yes Status: Chronic (3) Cocaine dependence Current Visit: Yes Status: Chronic Breathalyzer - Breathalyzer Breathalyzer: 0.070 Urine Drug Screen - Test Device Lot number: [id number] Expiration date: 03/05/21 - Control Is test valid?: Yes - Results Drug screen NEGATIVE: No Urine drug screen results: THC-Marijuana, SVETLANA-Cocaine, BZO-Benzodiazepines Inpatient Rehab Admission - Rehab Decision to Admit Inpatient rehab admission?: No"
[2019-06-19] MEDS ORDERED: MAGNESIUM HYDROX 2400MG/30ML ORAL SUSPENSION 30 ML CUP PO PRN (19:30)
[2019-06-19] MEDS ORDERED: BISMUTH SUBSALICYLATE 524 MG/30 ML UD PO PRN (19:30)
[2019-06-19] MEDS ORDERED: MELATONIN 5 MG TABLETS PO PRN (19:30)
[2019-06-19] MEDS ORDERED: ACETAMINOPHEN 325 MG TABLET (FP) PO PRN ×2 (19:30)
[2019-06-19] MEDS ORDERED: IBUPROFEN 400 MG TABLET (FP) PO PRN (19:30)
[2019-06-19] MEDS ORDERED: METHOCARBAMOL 500 MG TABLET PO PRN (19:30)
[2019-06-19] MEDS ORDERED: hydrOXYzine PAMOATE 25 MG CAPSULE (FP) PO PRN (19:30)
[2019-06-19] MEDS ORDERED: MENTHOL/PHENOL 1 EACH UD MM PRN (19:30)
[2019-06-19] MEDS ORDERED: MAG HYDROX/AL HYDROX/SIMETH 30 ML UNIT-DOSE CUP PO PRN (19:30)
[2019-06-19] MEDS ORDERED: MAGNESIUM CITRATE 300 ML BOTTLE PO PRN (19:30)
[2019-06-19] MEDS ORDERED: chlordiazePOXIDE HCL 25 MG CAPSULE PO PRN (19:31)
[2019-06-19] MEDS: amLODIPine BESYLATE 10 MG TABLET (FP) PO SCH (20:31)
[2019-06-19] MEDS: THIAMINE HCL 100 MG TABLET (FP) PO SCH (22:46)
[2019-06-19] MEDS: chlordiazePOXIDE HCL 25 MG CAPSULE PO SCH (22:46)
[2019-06-20] MEDS: chlordiazePOXIDE HCL 25 MG CAPSULE PO SCH ×4 (07:00→22:49)
[2019-06-20] MEDS: PRENATAL VITAMINS W/ FOLIC ACID TABLET (FP) PO SCH (10:23)
[2019-06-20] MEDS: amLODIPine BESYLATE 10 MG TABLET (FP) PO SCH (10:23)
[2019-06-20] MEDS: HYDROCHLOROTHIAZIDE 12.5 MG CAPSULE (FP) PO SCH (10:23)
[2019-06-20 10:32] LABS: ALBUMIN 3.8 g/dl (3.4-5.0); BILIRUBIN,TOTAL 0.4 mg/dL (0.2-1); BLOOD UREA NITROGEN 12.7 mg/dL (7-18); CALCIUM 9.1 mg/dL (8.5-10.1); POTASSIUM 4.5 mmol/L (3.5-5.1); TOT PROT 7.8 g/dl (6.4-8.2)
--- NOTE | 2019-06-20 10:33 | CONSULT ---
[facility] Psychiatric Consult - Data Date of interview: 06/20/19 Identifying data: Mr Murphy is a 54 years single Black male, father of a 18 years old son, unemployed on SSI, domiciled seeking detox treatment for alcohol and cocaine Substance Abuse History: Reports history of alcohol and cocaine use. Refer to addiction counselor's summary for further information Medical History: Significant for hypertension, dyslipidemia, gout, chronic arthritis, PPD+ and a history of anemia and orthosurgery for injury to right knee + right leg(February 2017). Smokes 10 cigarettes daily Psychiatric History: Patient has had multiple previous admissions to this facility. Historical narrative remains consistent. He reports that he was diagnosed with Bipolar Schizophrenia at age 10 and started on psychotropic medications. Reports 3-4 previous psychiatric hospitalizations at various facilities including [facility] and [facility]. Reports that he receives outpatient psychiatric treatment at [facility] and is prescribed Paxil 20mg/day and Zyprexa 10mg/hs. During most recent admission to this facility, he saw ADAN Marks on 12/24/18 and he was prescribed Paxil 20 mg/ day and Zyprexa 10 mg/hs. Told technical proposal writer that he has not seen his psychiatric since his discharge from this facility in December 2018 but occasionally got medications via ED. Reports that he has not taken any medications in over 2 weeks.Patient with a history of sub-optimal adherence to medications and outpatient treatment. Denies previous suicide attempt. At present, demies experiencing psychotic, manic symptoms, S/H ideations. However, reports feeling mildly depressed and sleeping poorly Physical/Sexual Abuse/Trauma History: Reports history of multiple previous arrests includingone felony conviction. Denies being on parole/probation currently Mental Status Exam - Mental Status Exam Alert and Oriented to: Time, Place, Person Patient Appearance: Disheveled Mood: Depressed Affect: Appropriate Patient Behavior: Cooperative Speech Pattern: Clear Voice Loudness: Normal Thought Process: Intact, Goal Oriented Thought Disorder: Not Present Hallucinations: Denies Suicidal Ideation: Denies Homicidal Ideation: Denies Insight/Judgement: Poor Sleep: Poorly Appetite: Good Muscle strength/Tone: Normal Gait/Station: Normal (uses a cane as ambulatory aid) Psychiatric Findings - Problem List ([place] 1, 2,3) (1) Schizophrenia Current Visit: No Status: Chronic Qualifiers: Schizophrenia type: unspecified Qualified Code(s): F20.9 - Schizophrenia, unspecified Comment: As per records.Patient is on olanzapine.Enrolled in [facility]PD care at [facility].Non compliant with medications for past two months. (2) Schizoaffective disorder Current Visit: Yes Status: Ruled-out (3) Substance induced mood disorder Current Visit: Yes Status: Acute (4) Substance-induced sleep disorder Current Visit: No Status: Acute (5) Alcohol dependence with uncomplicated withdrawal Current Visit: Yes Status: Acute (6) Cocaine dependence Current Visit: Yes Status: Acute (7) Nicotine dependence Current Visit: No Status: Chronic Qualifiers: Nicotine product type: cigarettes Substance use status: uncomplicated Qualified Code(s): F17.210 - Nicotine dependence, cigarettes, uncomplicated (8) Anemia Current Visit: No Status: Resolved Qualifiers: Anemia type: unspecified type Qualified Code(s): D64.9 - Anemia, unspecified (9) Arthritis of both knees Current Visit: No Status: Chronic (10) Essential hypertension Current Visit: No Status: Chronic (11) Gout Current Visit: No Status: Chronic Qualifiers: Gout site: multiple sites Gout etiology: other secondary cause Chronicity : chronic Presence of tophus: without tophus Qualified Code(s): M1A.49X0 - Other secondary chronic gout, multiple sites, without tophus (tophi) (12) Hypercholesteremia Current Visit: No Status: Chronic - Initial Treatment Plan Initial Treatment Plan: 1) Resume Zyprexa 10 mg po HS. 2) Continue inpatient detoxification
[2019-06-20 10:37] LABS: HEMATOCRIT 42.7 % (35.4-49); HEMOGLOBIN 13.9 GM/dL (11.7-16.9); MCH 27.1 pg (25.7-33.7); MCHC 32.6 g/dl (32.0-35.9); MEAN CELL VOLUME 83.2 fl (80-96); MEAN PLT VOLUME 8.4 fl (7.5-11.1); PLATELET COUNT 254 K/MM3 (134-434); RBC 5.14 M/mm3 (4.00-5.60); RDW 16.7 % (11.9-15.9); WHITE BLOOD COUNT 5.7 K/mm3 (4.0-10.0)
--- NOTE | 2019-06-20 13:43 | PN ---
S CIWA - CIWA Score Nausea/Vomitin-No Nausea/No Vomiting Muscle Tremors: 2 Anxiety: 1-Mildly Anxious Agitation: 2 Paroxysmal Sweats: 2 Orientation: 0-Oriented Tacttile Disturbances: 0-None Auditory Disturbances: 0-None Visual Disturbances: 0-None Headache: 0-None Present CIWA-Ar Total Score: 7 BHS Progress Note (SOAP) Subjective: sweats shakes interrupted sleep body aches Objective: 06/20/19 13:42 Vital Signs Temperature 97.7 F 06/20/19 13:37 Pulse Rate 83 06/20/19 13:37 Respiratory Rate 18 06/20/19 13:37 Blood Pressure 135/96 06/20/19 13:37 O2 Sat by Pulse Oximetry (%) Laboratory Tests 06/20/19 06/20/19 06/20/19 07:00 07:00 07:00 WBC 5.7 RBC 5.14 Hgb 13.9 Hct 42.7 D MCV 83.2 MCH 27.1 MCHC 32.6 RDW 16.7 H Plt Count 254 MPV 8.4 Sodium 140 Potassium 4.5 Chloride 108 H Carbon Dioxide 28 Anion Gap 5 L BUN 12.7 Creatinine 1.0 Est GFR (CKD-EPI)AfAm 99.15 Est GFR (CKD-EPI)NonAf 85.55 Random Glucose 88 Calcium 9.1 Total Bilirubin 0.4 AST 35 ALT 41 Alkaline Phosphatase 86 Total Protein 7.8 Albumin 3.8 RPR Titer Nonreactive labs noted aaox3 ambulating no acute distress Assessment: 06/20/19 13:43 withdrawals sx Plan: continue detox increase fluids
[2019-06-20] MEDS: OLANZapine 10 MG TABLET PO SCH (22:49)
[2019-06-20] MEDS: THIAMINE HCL 100 MG TABLET (FP) PO SCH (22:49)
[2019-06-20] MEDS: SUVOREXANT 10 MG TABLET PO PRN (22:51)
[2019-06-21] MEDS: chlordiazePOXIDE HCL 25 MG CAPSULE PO SCH ×4 (06:22→22:41)
[2019-06-21] MEDS: PRENATAL VITAMINS W/ FOLIC ACID TABLET (FP) PO SCH (10:37)
[2019-06-21] MEDS: HYDROCHLOROTHIAZIDE 12.5 MG CAPSULE (FP) PO SCH (10:37)
[2019-06-21] MEDS: amLODIPine BESYLATE 10 MG TABLET (FP) PO SCH (10:37)
--- NOTE | 2019-06-21 15:34 | PN ---
S CIWA - CIWA Score Nausea/Vomitin-No Nausea/No Vomiting Muscle Tremors: 3 Anxiety: 2 Agitation: 0-Normal Activity Paroxysmal Sweats: No Perspiration Orientation: 2-Disoriented Date<2 days Tacttile Disturbances: 0-None Auditory Disturbances: 0-None Visual Disturbances: 2-Mild Sensitivity Headache: 0-None Present CIWA-Ar Total Score: 9 BHS Progress Note (SOAP) Subjective: Sweating, Fatigue, Tremors. Objective: PATIENT A & O X 2 (UNCERTAIN ABOUT CURRENT DAY / DATE). IN NO ACUTE DISTRESS. 06/21/19 15:35 Vital Signs Temperature 98.2 F 06/21/19 14:45 Pulse Rate 79 06/21/19 14:45 Respiratory Rate 18 06/21/19 14:45 Blood Pressure 124/86 06/21/19 14:45 O2 Sat by Pulse Oximetry (%) Laboratory Tests 06/20/19 06/20/19 06/20/19 07:00 07:00 07:00 WBC 5.7 RBC 5.14 Hgb 13.9 Hct 42.7 D MCV 83.2 MCH 27.1 MCHC 32.6 RDW 16.7 H Plt Count 254 MPV 8.4 Sodium 140 Potassium 4.5 Chloride 108 H Carbon Dioxide 28 Anion Gap 5 L BUN 12.7 Creatinine 1.0 Est GFR (CKD-EPI)AfAm 99.15 Est GFR (CKD-EPI)NonAf 85.55 Random Glucose 88 Calcium 9.1 Total Bilirubin 0.4 AST 35 ALT 41 Alkaline Phosphatase 86 Total Protein 7.8 Albumin 3.8 RPR Titer Nonreactive LABS NOTED. Assessment: 06/21/19 15:36 WITHDRAWAL SYMPTOMS. Plan: CONTINUE DETOX.
[2019-06-21] MEDS: OLANZapine 10 MG TABLET PO SCH (22:41)
[2019-06-21] MEDS: THIAMINE HCL 100 MG TABLET (FP) PO SCH (22:41)
[2019-06-22] MEDS ORDERED: chlordiazePOXIDE HCL 10 MG CAPSULE PO PRN
[2019-06-22] MEDS: chlordiazePOXIDE HCL 10 MG CAPSULE PO SCH ×4 (06:13→22:36)
[2019-06-22] MEDS: HYDROCHLOROTHIAZIDE 12.5 MG CAPSULE (FP) PO SCH (11:00)
[2019-06-22] MEDS: amLODIPine BESYLATE 10 MG TABLET (FP) PO SCH (11:00)
[2019-06-22] MEDS: PRENATAL VITAMINS W/ FOLIC ACID TABLET (FP) PO SCH (11:00)
--- NOTE | 2019-06-22 12:59 | PN ---
S CIWA - CIWA Score Nausea/Vomitin-No Nausea/No Vomiting Muscle Tremors: 2 Anxiety: 2 Agitation: 1-Slight > Activity Paroxysmal Sweats: 2 Orientation: 0-Oriented Tacttile Disturbances: 0-None Auditory Disturbances: 0-None Visual Disturbances: 0-None Headache: 0-None Present CIWA-Ar Total Score: 7 BHS Progress Note (SOAP) Subjective: Interrupted sleep Objective: 06/22/19 12:54 Last Vital Signs Temp Pulse Resp BP Pulse Ox 98.2 F 99 H 18 136/92 06/22/19 10:48 06/22/19 10:48 06/22/19 10:48 06/22/19 10:48 Elevated b/p: has htn, on medication Laboratory Tests 06/20/19 06/20/19 06/20/19 07:00 07:00 07:00 WBC 5.7 RBC 5.14 Hgb 13.9 Hct 42.7 D MCV 83.2 MCH 27.1 MCHC 32.6 RDW 16.7 H Plt Count 254 MPV 8.4 Sodium 140 Potassium 4.5 Chloride 108 H Carbon Dioxide 28 Anion Gap 5 L BUN 12.7 Creatinine 1.0 Est GFR (CKD-EPI)AfAm 99.15 Est GFR (CKD-EPI)NonAf 85.55 Random Glucose 88 Calcium 9.1 Total Bilirubin 0.4 AST 35 ALT 41 Alkaline Phosphatase 86 Total Protein 7.8 Albumin 3.8 RPR Titer Nonreactive Labs reviewed Assessment: 06/22/19 12:58 Withdrawal sxs Plan: Continue detox Encouraged PO water intake HTN: continue norvasc 10mg and HCTZ 25 mg, encouraged adherence to medications, monitor b/p, follow up with PCP post discharge for management
[2019-06-22] MEDS: THIAMINE HCL 100 MG TABLET (FP) PO SCH (22:36)
[2019-06-22] MEDS: OLANZapine 10 MG TABLET PO SCH (22:36)
[2019-06-22] MEDS: SUVOREXANT 10 MG TABLET PO PRN (22:38)
[2019-06-23] MEDS: chlordiazePOXIDE HCL 10 MG CAPSULE PO SCH ×2 (06:43→17:42)
[2019-06-23] MEDS: amLODIPine BESYLATE 10 MG TABLET (FP) PO SCH (10:21)
[2019-06-23] MEDS: HYDROCHLOROTHIAZIDE 12.5 MG CAPSULE (FP) PO SCH (10:21)
[2019-06-23] MEDS: PRENATAL VITAMINS W/ FOLIC ACID TABLET (FP) PO SCH (10:21)
--- NOTE | 2019-06-23 11:31 | PN ---
S CIWA - CIWA Score Nausea/Vomitin-Mild Nausea/No Vomiting Muscle Tremors: 1-None Visible, but [place] Anxiety: 2 Agitation: 2 Paroxysmal Sweats: No Perspiration Orientation: 0-Oriented Tacttile Disturbances: 1-Very Mild Itch/Numbness Auditory Disturbances: 0-None Visual Disturbances: 0-None Headache: 2-Mild CIWA-Ar Total Score: 9 BHS Progress Note (SOAP) Subjective: alert,irritable,anxious,interrupted sleep,pain in the body Objective: 06/23/19 11:30 Vital Signs Temperature 97.3 F L 06/23/19 09:18 Pulse Rate 83 06/23/19 09:18 Respiratory Rate 18 06/23/19 09:18 Blood Pressure 105/61 06/23/19 09:18 O2 Sat by Pulse Oximetry (%) Assessment: 06/23/19 11:30 withdrawal symptom Plan: continue detox librium regimen,discharge in am
[2019-06-23] MEDS: OLANZapine 10 MG TABLET PO SCH (22:49)
[2019-06-23] MEDS: THIAMINE HCL 100 MG TABLET (FP) PO SCH (22:49)
[2019-06-24] MEDS ORDERED: chlordiazePOXIDE HCL 10 MG CAPSULE PO ONE (05:00)
--- NOTE | 2019-06-24 09:41 | DS ---
[facility] Detox Discharge Summary Admission Date: 06/19/19 Discharge Date: 06/24/19 - History Present History: Alcohol Dependence, Cocaine Dependence - Physical Exam Results Vital Signs: Vital Signs Temperature 97.7 F 06/24/19 06:30 Pulse Rate 87 06/24/19 06:30 Respiratory Rate 18 06/24/19 06:30 Blood Pressure 112/86 06/24/19 06:30 O2 Sat by Pulse Oximetry (%) Pertinent Admission Physical Exam Findings: pt arrived in withdrawals Vital Signs Temperature 97.7 F 06/24/19 06:30 Pulse Rate 87 06/24/19 06:30 Respiratory Rate 18 06/24/19 06:30 Blood Pressure 112/86 06/24/19 06:30 O2 Sat by Pulse Oximetry (%) Laboratory Tests 06/20/19 06/20/19 06/20/19 07:00 07:00 07:00 WBC 5.7 RBC 5.14 Hgb 13.9 Hct 42.7 D MCV 83.2 MCH 27.1 MCHC 32.6 RDW 16.7 H Plt Count 254 MPV 8.4 Sodium 140 Potassium 4.5 Chloride 108 H Carbon Dioxide 28 Anion Gap 5 L BUN 12.7 Creatinine 1.0 Est GFR (CKD-EPI)AfAm 99.15 Est GFR (CKD-EPI)NonAf 85.55 Random Glucose 88 Calcium 9.1 Total Bilirubin 0.4 AST 35 ALT 41 Alkaline Phosphatase 86 Total Protein 7.8 Albumin 3.8 RPR Titer Nonreactive today pt is aaox3 ambulating no acute distress no s/s of withdrawals - Treatment Hospital Course: Detox Protocol Followed, Detoxed Safely, Responded well, Discharged Condition Good, Rehab Referral Accepted - Medication Discharge Medications: Ambulatory Orders Olanzapine [ZyPREXA -] 10 mg PO HS #30 tablet 12/21/14 Amlodipine Besylate [Norvasc -] 10 mg PO DAILY #30 tablet 09/27/17 Hydrochlorothiazide [Hctz -] 25 mg PO DAILY 09/05/18 Paroxetine HCl [Paxil -] 20 mg PO DAILY 12/23/18 - Diagnosis (1) Alcohol dependence with uncomplicated withdrawal Current Visit: Yes Status: Chronic (2) Cocaine dependence Current Visit: Yes Status: Chronic Qualifiers: Substance use status: uncomplicated Qualified Code(s): F14.20 - Cocaine dependence, uncomplicated (3) Substance induced mood disorder Current Visit: Yes Status: Acute (4) Schizoaffective disorder Current Visit: Yes Status: Ruled-out (5) Substance-induced sleep disorder Current Visit: No Status: Acute (6) Acid reflux Current Visit: Yes Status: Chronic Qualifiers: Esophagitis presence: without esophagitis Qualified Code(s): K21.9 - Gastro -esophageal reflux disease without esophagitis (7) Arthritis of both knees Current Visit: No Status: Chronic (8) Essential hypertension Current Visit: Yes Status: Chronic (9) Gout Current Visit: No Status: Suspected Qualifiers: Gout site: multiple sites Gout etiology: other secondary cause Chronicity : chronic Presence of tophus: without tophus Qualified Code(s): M1A.49X0 - Other secondary chronic gout, multiple sites, without tophus (tophi) (10) Hypercholesteremia Current Visit: No Status: Chronic (11) Insomnia Current Visit: No Status: Chronic (12) Nicotine dependence Current Visit: Yes Status: Chronic Qualifiers: Nicotine product type: cigarettes Substance use status: uncomplicated Qualified Code(s): F17.210 - Nicotine dependence, cigarettes, uncomplicated (13) Non-compliant behavior Current Visit: No Status: Chronic (14) Schizophrenia Current Visit: No Status: Chronic Qualifiers: Schizophrenia type: unspecified Qualified Code(s): F20.9 - Schizophrenia, unspecified (15) Use of cane as ambulatory aid Current Visit: Yes Status: Chronic (16) Bipolar II disorder Current Visit: No Status: Suspected (17) Schizoaffective disorder Current Visit: No Status: Ruled-out - AMA Did Patient Leave Against Medical Advice: No
[2019-06-24 10:19] VITALS: BP 126/96; PULSE 105; TEMP 97.8
[2019-06-24] MEDS: PRENATAL VITAMINS W/ FOLIC ACID TABLET (FP) PO SCH (10:28)
[2019-06-24] MEDS: HYDROCHLOROTHIAZIDE 12.5 MG CAPSULE (FP) PO SCH (10:28)
[2019-06-24] MEDS: amLODIPine BESYLATE 10 MG TABLET (FP) PO SCH (10:29)
== END 2019-06-24 11:06 | disposition home or self-care (01) | DRG 774 ==
LOC: YASAS 14:45 → Y6N 19:46
PROVIDERS: ADMIT Allergy & Immunology; ATTEND Allergy & Immunology
PROC: HZ2ZZZZ Detoxification Services for Substance Abuse Treatment (ICD-10-PCS; principal; 2019-06-19)
DX: F10.230 Alcohol dependence with withdrawal, uncomplicated (principal); F10.220 Alcohol dependence with intoxication, uncomplicated; F14.20 Cocaine dependence, uncomplicated; F17.210 Nicotine dependence, cigarettes, uncomplicated; F19.24 Other psychoactive substance dependence with psychoactive substance-induced mood disorder; F19.282 Other psychoactive substance dependence with psychoactive substance-induced sleep disorder; F31.81 Bipolar II disorder; I10 Essential (primary) hypertension; K21.9 Gastro-esophageal reflux disease without esophagitis; D64.9 Anemia, unspecified; M17.0 Bilateral primary osteoarthritis of knee; M1A.49X0 Other secondary chronic gout, multiple sites, without tophus (tophi); R76.11 Nonspecific reaction to tuberculin skin test without active tuberculosis; Z99.89 Dependence on other enabling machines and devices; Z91.19 Patient's noncompliance with other medical treatment and regimen
CPT/HCPCS: 36415; 80053; 85027; 86593

== ENCOUNTER 2019-08-05 16:52 | Inpatient (IN) | payer OTHER ==
[2019-08-05 19:27] VITALS: BMI 24.7
--- NOTE | 2019-08-05 23:46 | HP ---
CIWA Score Nausea/Vomitin Muscle Tremors: 4-Moderate,w/Arms Extend Anxiety: 3 Agitation: 3 Paroxysmal Sweats: 3 (Increased facial moisture) Orientation: 0-Oriented Tacttile Disturbances: 0-None Auditory Disturbances: 0-None Visual Disturbances: 0-None Headache: 2-Mild CIWA-Ar Total Score: 17 - Admission Criteria OASAS Guidelines: Admission for Medically Managed Detox: Requires at least one of the followin. CIWA greater than 12 2. Seizures within the past 24 hours 3. Delirium tremens within the past 24 hours 4. Hallucinations within the past 24 hours 5. Acute intervention needed for co occurring medical disorder 6. Acute intervention needed for co occurring psychiatric disorder 7. Severe withdrawal that cannot be handled at a lower level of care (continued vomiting, continued diarrhea, abnormal vital signs) requiring intravenous medication and/or fluids 8. Patient presents the following: CIWA greater than 12 Admission Criteria Met: Admission criteria met Admitting History and Physical - Smoking History Smoking history: Current every day smoker Have you smoked in the past 12 months: Yes Aproximately how many cigarettes per day: 10 - Alcohol/Substance Use Hx Alcohol Use: Yes Admission ROS BHS - HPI Chief Complaint: Here for try to quit again. Allergies/Adverse Reactions: Allergies Allergy/AdvReac Type Severity Reaction Status Date / Time No Known Allergies Allergy Verified 08/05/19 19:17 History of Present Illness: 54 yo presents w/ alcohol use disorder w/ withdrawal symptoms seeking detox. Discharged from [facility] 06/24/19. States relapsed about 2 weeks after discharge NICCI: 0.005 UtOX: + SVETLANA/THC/BZO Denies BZO use - thinks may be in the Denies blackouts, seizures, overdoses. Alcohol use began at age 17. Currently drinking 2- 3 6 pk beers - 24 oz/day - shots of liquor. Cocaine use began at age 19. Currently smokes $50-100/day. Marijuana use began at age 17. Currently uses 2 x/month Nicotine use began at age 17. Smokes 1/2 PPD. Patient refuses nicotine patch and gum despite discussion r/t benefits during detox process. PMHx: HTN (non-compliant) COPD, Gout MHHx: Bipolar; Paranoid Schizo; Depression. Denies thoughts of harming self or others. Non-compliant w/ MH f/u or meds. SHx: Domiciled. Unemployed (SSI); Denies legal issues. Patient Name: Lucian Murphy Date: 1965 Address: [address] [place] [address] Sex: Male Rx Written Rx Dispensed Drug Quantity Days Supply Prescriber Name 05/30/2019 05/30/2019 promethazine-codeine syrup 240ml 8 Marco Sandoval Patient Name: Lucian Murphy Date: 1965 Address: [address] [place] [address] Sex: Male Rx Written Rx Dispensed Drug Quantity Days Supply Prescriber Name 12/16/2018 12/16/2018 chlordiazepoxide 10 mg capsule 27 3 Annmarie Cook Exam Limitations: No Limitations - Ebola screening Have you traveled outside of the country in the last 21 days: No (N) Have you had contact with anyone from an Ebola affected area: No Have you been sick,other than usual withdrawal symptoms: No Do you have a fever: No - Review of Systems Constitutional: Chills, Diaphoresis, Changes in sleep (Difficulty falling asleep ) EENT: reports: Nose Congestion, Dental Problems (Missing teeth. Chews ans swallows ok), Other (Sore throat x 2 weeks) Respiratory: reports: Cough ( x 2 weeks.), SOB with Exertion (w/ climbing stairs ) Cardiac: reports: No Symptoms Reported GI: reports: Diarrhea (Soft, brownish, x 1), Nausea, Indigestion (Heart burn - non-compliant), Abdominal cramping : reports: No Symptoms Reported Musculoskeletal: reports: Joint Pain (Bilateral knee pain (R) > (L)), Joint Swelling ((R) knee), Other (Uses a cane) Integumentary: reports: No Symptoms Reported Neuro: reports: Headache (frontal dull mild headache. "6"), Tremors Endocrine: reports: Increased Thirst Hematology: reports: No Symptoms Reported Psychiatric: reports: Judgement Intact, Orientated x3, Agitated, Anxious, Depressed ( Denies thoughts of harming self or others.) Patient History - Patient Medical History Hx Anemia: Yes (not taking any iron supplement) Hx Asthma: No Hx Chronic Obstructive Pulmonary Disease (COPD): No Hx Cancer: No Hx Cardiac Disorders: No Hx Congestive Heart Failure: No Hx Hypertension: Yes Hx Hypercholesterolemia: Yes (SIMVASTATIN) Hx Pacemaker: No HX Cerebrovascular Accident: No Hx Seizures: No Hx Dementia: No Hx Diabetes: No Hx Gastrointestinal Disorders: Yes Hx Liver Disease: No Hx Genitourinary Disorders: No Hx Sexually Transmitted Disorders: No Hx Renal Disease (ESRD): No Hx Thyroid Disease: No Hx Human Immunodeficiency Virus (HIV): No (negative) Hx Hepatitis C: No Hx Depression: No Hx Suicide Attempt: No Hx Bipolar Disorder: Yes Hx Schizophrenia: Yes - Patient Surgical History Past Surgical History: Yes Hx Neurologic Surgery: No Hx Cataract Extraction: No Hx Cardiac Surgery: No Hx Lung Surgery: No Hx Breast Surgery: No Hx Breast Biopsy: No Hx Abdominal Surgery: No Hx Appendectomy: No Hx Cholecystectomy: No Hx Genitourinary Surgery: No Hx Section: No Hx Orthopedic Surgery: Yes (fx, right leg (fall) in 02/2018) Anesthesia Reaction: No - PPD History Previous Implant?: Yes (PPD+ Last CRR: 09/10/18) Documented Results: Positive w/o proof PPD to be Administered?: No - Smoking Cessation Smoking history: Current every day smoker Have you smoked in the past 12 months: Yes Aproximately how many cigarettes per day: 10 Cigars Per Day: 0 Hx Chewing Tobacco Use: No Initiated information on smoking cessation: Yes 'Breaking Loose' booklet given: 08/06/19 - Substance & Tx. History Hx Alcohol Use: Yes Hx Substance Use: Yes Substance Use Type: Alcohol, Cocaine, Marijuana Hx Substance Use Treatment: Yes (detox, rehab) - Substances abused Alcohol Substance route: Oral Frequency: Daily Amount used: 4 to 6 packs/ 1 pint of vodka Age of first use: 17 Date of last use: 08/05/19 Cocaine Substance route: Smoking Frequency: 1-2 times per week Amount used: $70-100/DAY Age of first use: 19 Date of last use: 08/05/19 Admission Physical Exam BHS - Vital Signs Vital Signs: Vital Signs - 24 hr 08/05/19 08/05/19 19:16 20:12 Temperature 97.5 F L 97.5 F L Pulse Rate 96 H 96 H Respiratory 18 18 Rate Blood Pressure 171/103 H 171/103 H - Physical General Appearance: Yes: Nourished, Mild Distress, Tremorous, Irritable, Sweating (Increased facial moisture), Anxious HEENTM: Yes: EOMI, Hearing grossly Normal, Normal ENT Inspection, Normocephalic , Normal Voice, TETO, Pharynx Normal, Nasal Congestion, Rhinorrhea Respiratory: Yes: Lungs Clear (Pulse Ox = 99 %), Normal Breath Sounds, No Respiratory Distress, Other (Spontaneous non-productive, quiet cough) Neck: Yes: No masses,lesions,Nodules, Supple Breast: Yes: Breast Exam Deferred Cardiology: Yes: Regular Rhythm, Regular Rate (HR: 90), S1, S2 Abdominal: Yes: Non Tender, Flat, Soft, Increased Bowel Sounds Genitourinary: Yes: Within Normal Limits Back: Yes: Normal Inspection Musculoskeletal: Yes: Gait Steady (w/ use of a cane), Joint Stiffness ((R) knee stiffness w/ abnormal bozena shape) Extremities: Yes: Normal Capillary Refill, Tremors Neurological: Yes: family law paralegal II-XII NML intact, Fully Oriented, Alert, Motor Strength 5/5, Normal Response Lymphatic: Yes: Within Normal Limits - Diagnostic (1) Acid reflux Current Visit: Yes Status: Chronic Qualifiers: Esophagitis presence: without esophagitis Qualified Code(s): K21.9 - Gastro -esophageal reflux disease without esophagitis (2) Alcohol dependence with uncomplicated withdrawal Current Visit: Yes Status: Acute (3) Arthritis of both knees Current Visit: Yes Status: Chronic (4) Cocaine dependence Current Visit: Yes Status: Chronic Qualifiers: Substance use status: uncomplicated Qualified Code(s): F14.20 - Cocaine dependence, uncomplicated (5) Essential hypertension Current Visit: Yes Status: Chronic Comment: Non-compliant w/ meds (6) Nicotine dependence Current Visit: Yes Status: Chronic Qualifiers: Nicotine product type: cigarettes Substance use status: uncomplicated Qualified Code(s): F17.210 - Nicotine dependence, cigarettes, uncomplicated (7) Use of cane as ambulatory aid Current Visit: Yes Status: Chronic Comment: ARTHRITIS OF THE KNEES (8) COPD (chronic obstructive pulmonary disease) Current Visit: Yes Status: Chronic Qualifiers: COPD type: unspecified COPD Qualified Code(s): J44.9 - Chronic obstructive pulmonary disease, unspecified (9) Cannabis abuse, uncomplicated Current Visit: Yes Status: Chronic (10) Cough Current Visit: Yes Status: Acute Comment: Non-productive (11) History of gout Current Visit: No Status: Chronic Cleared for Admission S - Detox or Rehab BHS Level of Care: Medically Managed Detox Regimen/Protocol: Librium Claeared for Rehab Admission: No Breathalyzer - Breathalyzer Breathalyzer: 0.005 Urine Drug Screen - Test Device Lot number: [id number] Expiration date: 03/05/21 - Control Is test valid?: Yes - Results Drug screen NEGATIVE: No Urine drug screen results: THC-Marijuana, SVETLANA-Cocaine, BZO-Benzodiazepines Inpatient Rehab Admission - Rehab Decision to Admit Inpatient rehab admission?: No
[2019-08-06] MEDS ORDERED: MAG HYDROX/AL HYDROX/SIMETH 30 ML UNIT-DOSE CUP PO PRN (00:29)
[2019-08-06] MEDS ORDERED: chlordiazePOXIDE HCL 25 MG CAPSULE PO ONE (00:29)
[2019-08-06] MEDS ORDERED: IBUPROFEN 400 MG TABLET (FP) PO PRN (00:29)
[2019-08-06] MEDS ORDERED: MELATONIN 5 MG TABLETS PO PRN (00:29)
[2019-08-06] MEDS ORDERED: MAGNESIUM CITRATE 300 ML BOTTLE PO PRN (00:29)
[2019-08-06] MEDS ORDERED: MAGNESIUM HYDROX 2400MG/30ML ORAL SUSPENSION 30 ML CUP PO PRN (00:29)
[2019-08-06] MEDS ORDERED: chlordiazePOXIDE 5 MG CAPSULE PO PRN (00:29)
[2019-08-06] MEDS ORDERED: BISMUTH SUBSALICYLATE 524 MG/30 ML UD PO PRN (00:29)
[2019-08-06] MEDS ORDERED: MENTHOL/PHENOL 1 EACH UD MM PRN (00:29)
[2019-08-06] MEDS ORDERED: ACETAMINOPHEN 325 MG TABLET (FP) PO PRN ×2 (00:29)
[2019-08-06] MEDS ORDERED: cloNIDine HCL 0.1 MG TABLET PO ONE (00:52)
[2019-08-06] MEDS: P-EPHED 60MG/TRIPROLIDI 2.5MG TABLET PO SCH ×4 (01:35→18:08)
[2019-08-06] MEDS: guaiFENesin 200 MG/10 ML 10 ML UNIT-DOSE CUPS PO SCH ×4 (01:36→18:08)
[2019-08-06] MEDS: chlordiazePOXIDE HCL 25 MG CAPSULE PO SCH ×3 (06:40→22:46)
[2019-08-06] MEDS: PRENATAL VITAMINS W/ FOLIC ACID TABLET (FP) PO SCH (10:11)
[2019-08-06] MEDS: PANTOPRAZOLE 40 MG TABLET (FP) PO SCH (10:11)
[2019-08-06] MEDS: amLODIPine BESYLATE 10 MG TABLET (FP) PO SCH (10:11)
[2019-08-06] MEDS: HYDROCHLOROTHIAZIDE 12.5 MG CAPSULE (FP) PO SCH (10:11)
--- NOTE | 2019-08-06 11:35 | PN ---
S CIWA - CIWA Score Nausea/Vomitin-Mild Nausea/No Vomiting Muscle Tremors: 4-Moderate,w/Arms Extend Anxiety: 3 Agitation: 2 Paroxysmal Sweats: 2 Orientation: 1-Uncertain about Date Tacttile Disturbances: 0-None Auditory Disturbances: 0-None Visual Disturbances: 0-None Headache: 1-Very Mild CIWA-Ar Total Score: 14 BHS Progress Note (SOAP) Subjective: 54 years old male admitted on 08/05/19 for alcohol withdrawal sx management treating with librium detox regimen ambulating with cane steady gait social with peers in day room Objective: 08/06/19 11:31 Vital Signs Temperature 97.9 F 08/06/19 09:10 Pulse Rate 100 H 08/06/19 09:10 Respiratory Rate 20 08/06/19 09:10 Blood Pressure 147/100 08/06/19 09:10 O2 Sat by Pulse Oximetry (%) 08/06/19 11:32 lab pending Assessment: 08/06/19 11:39 alcohol withdrawal Plan: librium regimen
--- NOTE | 2019-08-06 14:09 | CONSULT ---
[facility] Psychiatric Consult - Data Date of interview: 08/06/19 Admission source: [facility] Identifying data: Patient is a 54 year old single male, father of four, disabled , and is supported by [facility]. This is one of multiple admissions for patient. Patient admitted to for alcohol and cocaine dependence. Substance Abuse History: Smoking Cessation. Smoking history: Current every day smoker. Have you smoked in the past 12 months: Yes. Aproximately how many cigarettes per day: 10. Cigars Per Day: 0. Hx Chewing Tobacco Use: No. Initiated information on smoking cessation: Yes. 'Breaking Loose' booklet given : 08/06/19. - Substance & Tx. History. Hx Alcohol Use: Yes. Hx Substance Use : Yes. Substance Use Type: Alcohol, Cocaine, Marijuana. Hx Substance Use Treatment: Yes (detox, rehab). - Substances abused. Alcohol. Substance route: Oral. Frequency: Daily. Amount used: 4 to 6 packs/ 1 pint of vodka. Age of first use: 17. Date of last use: 08/05/19. Cocaine. Substance route : Smoking. Frequency: 1-2 times per week. Amount used: $70-100/DAY. Age of first use: 19. Date of last use: 08/05/19 Medical History: Significant for hypertension, dyslipidemia, gout, chronic arthritis, PPD+ and a history of anemia and orthosurgery for injury to right knee + right leg(February 2017) Psychiatric History: Interview conducted bedside. Patient reports history of multiple psychiatric hospitalizations at [facility] and [facility]. He was most recently hospitalized in September of [address] [facility] for depression. Diagnosis of Bipolar disorder + Schizophrenia. He reports past history of accepting Paxil 10mg + Zyprexa 10mg HS. During previous admissions to detox patient received zyprexa 10mg HS. Patient with a history of poor compliance. Mr. Murphy is not currently provided with OPD. At present patient reports feeling sad and is experiencing difficulty sleeping. Physical/Sexual Abuse/Trauma History: denies. Mental Status Exam - Mental Status Exam Alert and Oriented to: Time, Place, Person Cognitive Function: Good Patient Appearance: Well Groomed Mood: Withdrawn Affect: Mood Congruent Patient Behavior: Fatigued, Cooperative Speech Pattern: Appropriate Voice Loudness: Mildly Soft/Quiet Thought Process: Goal Oriented Thought Disorder: Not Present Hallucinations: Denies Suicidal Ideation: Denies Homicidal Ideation: Denies Insight/Judgement: Poor Sleep: Poorly Appetite: Fair Muscle strength/Tone: Normal Gait/Station: Other (Did not observe patient's gait.) Psychiatric Findings - Problem List ([place] 1, 2,3) (1) Alcohol dependence with uncomplicated withdrawal Status: Acute (2) Cocaine dependence Status: Chronic Qualifiers: Substance use status: uncomplicated Qualified Code(s): F14.20 - Cocaine dependence, uncomplicated (3) Substance induced mood disorder Status: Acute (4) Schizoaffective disorder Status: Suspected (5) Schizophrenia Status: Chronic Qualifiers: Schizophrenia type: unspecified Qualified Code(s): F20.9 - Schizophrenia, unspecified Comment: As per records.Patient is on olanzapine.Enrolled in OPD care at [facility].Non compliant with medications for past two months. - Initial Treatment Plan Initial Treatment Plan: Psychoeducation provided. Detoxification in progress. Will restart Zyprexa 10mg HS. Benefits and side effects discussed. Verbal consent given.
[2019-08-06 18:40] LABS: PH,URINE 5.5 (5.0-8.0); URINE APPEARANCE CLEAR; URINE BILIRUBIN NEGATIVE (NEGATIVE); URINE COLOR YELLOW; URINE GLUCOSE (UA) NEGATIVE (NEGATIVE); URINE KETONE NEGATIVE (NEGATIVE); URINE LEUK ESTERASE NEGATIVE (NEGATIVE); URINE NITRITE NEGATIVE (NEGATIVE); URINE PROTEIN TRACE (NEGATIVE); URINE UROBILINOGEN 0.2 mg/dL (0.2-1.0)
[2019-08-06] MEDS ORDERED: LISINOPRIL 10 MG TABLET (FP) PO SCH (22:00)
[2019-08-06] MEDS: THIAMINE HCL 100 MG TABLET (FP) PO SCH (22:46)
[2019-08-06] MEDS: OLANZapine 10 MG TABLET PO SCH (22:47)
[2019-08-07] MEDS: P-EPHED 60MG/TRIPROLIDI 2.5MG TABLET PO SCH ×4 (01:25→17:57)
[2019-08-07] MEDS: guaiFENesin 200 MG/10 ML 10 ML UNIT-DOSE CUPS PO SCH ×4 (01:25→17:57)
[2019-08-07] MEDS: chlordiazePOXIDE 5 MG CAPSULE PO SCH ×3 (05:16→23:50)
[2019-08-07 10:12] LABS: HEMATOCRIT 40.5 % (35.4-49); HEMOGLOBIN 13.1 GM/dL (11.7-16.9); MCH 26.8 pg (25.7-33.7); MCHC 32.2 g/dl (32.0-35.9); MEAN CELL VOLUME 83.2 fl (80-96); MEAN PLT VOLUME 8.2 fl (7.5-11.1); PLATELET COUNT 231 K/MM3 (134-434); RBC 4.87 M/mm3 (4.00-5.60); RDW 15.8 % (11.9-15.9); WHITE BLOOD COUNT 5.2 K/mm3 (4.0-10.0)
[2019-08-07] MEDS: amLODIPine BESYLATE 10 MG TABLET (FP) PO SCH (10:21)
[2019-08-07] MEDS: PANTOPRAZOLE 40 MG TABLET (FP) PO SCH (10:21)
[2019-08-07] MEDS: HYDROCHLOROTHIAZIDE 12.5 MG CAPSULE (FP) PO SCH (10:21)
[2019-08-07] MEDS: PRENATAL VITAMINS W/ FOLIC ACID TABLET (FP) PO SCH (10:21)
[2019-08-07 10:27] LABS: ALBUMIN 3.3 g/dl (3.4-5.0); BILIRUBIN,TOTAL 0.2 mg/dL (0.2-1); BLOOD UREA NITROGEN 11.3 mg/dL (7-18); CALCIUM 8.8 mg/dL (8.5-10.1); CREATININE 1.1 mg/dL (0.55-1.3); POTASSIUM 3.4 mmol/L (3.5-5.1); TOT PROT 7.1 g/dl (6.4-8.2)
--- NOTE | 2019-08-07 11:00 | PN ---
S CIWA - CIWA Score Nausea/Vomitin-No Nausea/No Vomiting Muscle Tremors: 2 Anxiety: 3 Agitation: 1-Slight > Activity Paroxysmal Sweats: 2 Orientation: 0-Oriented Tacttile Disturbances: 1-Very Mild Itch/Numbness Auditory Disturbances: 0-None Visual Disturbances: 0-None Headache: 1-Very Mild CIWA-Ar Total Score: 10 S Progress Note (SOAP) Subjective: 54 years old male admitted on 08/05/19 for alcohol withdrawal sx management treating with librium detox regimen feeling ok today ate breakfast resting in bed discuss aftercare with staff patient [facility] Objective: 08/07/19 11:01 Vital Signs Temperature 98.4 F 08/07/19 09:23 Pulse Rate 91 H 08/07/19 09:23 Respiratory Rate 20 08/07/19 09:23 Blood Pressure 134/93 08/07/19 09:23 O2 Sat by Pulse Oximetry (%) Laboratory Last Values WBC 5.2 K/mm3 (4.0-10.0) 08/07/19 08:00 RBC 4.87 M/mm3 (4.00-5.60) 08/07/19 08:00 Hgb 13.1 GM/dL (11.7-16.9) 08/07/19 08:00 Hct 40.5 % (35.4-49) 08/07/19 08:00 MCV 83.2 fl (80-96) 08/07/19 08:00 MCH 26.8 pg (25.7-33.7) 08/07/19 08:00 MCHC 32.2 g/dl (32.0-35.9) 08/07/19 08:00 RDW 15.8 % (11.9-15.9) 08/07/19 08:00 Plt Count 231 K/MM3 (134-434) 08/07/19 08:00 MPV 8.2 fl (7.5-11.1) 08/07/19 08:00 Sodium 138 mmol/L (136-145) 08/07/19 08:00 Potassium 3.4 mmol/L (3.5-5.1) L 08/07/19 08:00 Chloride 102 mmol/L (98-107) 08/07/19 08:00 Carbon Dioxide 30 mmol/L (21-32) 08/07/19 08:00 Anion Gap 6 MMOL/L (8-16) L 08/07/19 08:00 BUN 11.3 mg/dL (7-18) 08/07/19 08:00 Creatinine 1.1 mg/dL (0.55-1.3) 08/07/19 08:00 Est GFR (CKD-EPI)AfAm 88.36 08/07/19 08:00 Est GFR (CKD-EPI)NonAf 76.24 08/07/19 08:00 Random Glucose 96 mg/dL (74-106) 08/07/19 08:00 Calcium 8.8 mg/dL (8.5-10.1) 08/07/19 08:00 Total Bilirubin 0.2 mg/dL (0.2-1) 08/07/19 08:00 AST 94 U/L (15-37) H 08/07/19 08:00 ALT 64 U/L (13-61) H 08/07/19 08:00 Alkaline Phosphatase 76 U/L (45-117) 08/07/19 08:00 Total Protein 7.1 g/dl (6.4-8.2) 08/07/19 08:00 Albumin 3.3 g/dl (3.4-5.0) L 08/07/19 08:00 Urine Color Yellow 08/06/19 09:13 Urine Appearance Clear 08/06/19 09:13 Urine pH 5.5 (5.0-8.0) 08/06/19 09:13 Ur Specific [place] 1.025 (1.010-1.035) 08/06/19 09:13 Urine Protein Trace (NEGATIVE) 08/06/19 09:13 Urine Glucose (UA) Negative (NEGATIVE) 08/06/19 09:13 Urine Ketones Negative (NEGATIVE) 08/06/19 09:13 Urine Blood Negative (NEGATIVE) 08/06/19 09:13 Urine Nitrite Negative (NEGATIVE) 08/06/19 09:13 Urine Bilirubin Negative (NEGATIVE) 08/06/19 09:13 Urine Urobilinogen 0.2 mg/dL (0.2-1.0) 08/06/19 09:13 Ur Leukocyte Esterase Negative (NEGATIVE) 08/06/19 09:13 lab noted 08/07/19 11:03 low K+ K+ supplement bp elevation add lisinopril 5 mg po daily 08/07/19 11:04 Assessment: 08/07/19 11:04 alcohol withdrawal Plan: librium regimen
[2019-08-07] MEDS: POTASSIUM CHLORIDE ORAL LIQUID 20 MEQ/15 ML PO SCH ×2 (13:32→23:50)
[2019-08-07] MEDS ORDERED: LISINOPRIL 10 MG TABLET (FP) PO SCH (22:00)
[2019-08-07] MEDS: THIAMINE HCL 100 MG TABLET (FP) PO SCH (23:51)
[2019-08-07] MEDS: OLANZapine 10 MG TABLET PO SCH (23:52)
[2019-08-08] MEDS ORDERED: chlordiazePOXIDE 5 MG CAPSULE PO PRN
[2019-08-08] MEDS ORDERED: chlordiazePOXIDE HCL 10 MG CAPSULE PO SCH (05:00)
[2019-08-08 09:15] VITALS: BP 114/82; PULSE 94; TEMP 96.7
[2019-08-08] MEDS: POTASSIUM CHLORIDE ORAL LIQUID 20 MEQ/15 ML PO SCH (10:13)
[2019-08-08] MEDS: PANTOPRAZOLE 40 MG TABLET (FP) PO SCH (10:13)
[2019-08-08] MEDS: HYDROCHLOROTHIAZIDE 12.5 MG CAPSULE (FP) PO SCH (10:13)
[2019-08-08] MEDS: PRENATAL VITAMINS W/ FOLIC ACID TABLET (FP) PO SCH (10:13)
[2019-08-08] MEDS: amLODIPine BESYLATE 10 MG TABLET (FP) PO SCH (10:13)
--- NOTE | 2019-08-08 11:15 | DS ---
[facility] Detox Discharge Summary Admission Date: 08/06/19 Discharge Date: 08/08/19 - History Present History: Alcohol Dependence, Cocaine Dependence Additional Comments: Pt is medically cleared and discharged to [facility] for continued management. Pt is encouraged to follow through with the rehab protocol. Pt vebalized understanding of the information given. Pt is alert and oriented x3 and in no acute respiratory distress. Pertinent Past History: h/o HTN, dyslipidemia, alcohol, and cocaine use disorder. - Physical Exam Results Vital Signs: Vital Signs Temperature 96.7 F L 08/08/19 09:14 Pulse Rate 94 H 08/08/19 09:14 Respiratory Rate 18 08/08/19 09:14 Blood Pressure 114/82 08/08/19 09:14 O2 Sat by Pulse Oximetry (%) Vital Signs 08/08/19 08/08/19 08/08/19 03:30 06:33 09:14 Temperature 97.1 F L 96.7 F L Pulse Rate 78 94 H Respiratory 18 18 18 Rate Blood Pressure 99/63 114/82 Lab Results WBC 5.2 K/mm3 (4.0-10.0) 08/07/19 08:00 RBC 4.87 M/mm3 (4.00-5.60) 08/07/19 08:00 Hgb 13.1 GM/dL (11.7-16.9) 08/07/19 08:00 Hct 40.5 % (35.4-49) 08/07/19 08:00 MCV 83.2 fl (80-96) 08/07/19 08:00 MCHC 32.2 g/dl (32.0-35.9) 08/07/19 08:00 RDW 15.8 % (11.9-15.9) 08/07/19 08:00 Plt Count 231 K/MM3 (134-434) 08/07/19 08:00 Sodium 138 mmol/L (136-145) 08/07/19 08:00 Potassium 3.4 mmol/L (3.5-5.1) L 08/07/19 08:00 Chloride 102 mmol/L (98-107) 08/07/19 08:00 Carbon Dioxide 30 mmol/L (21-32) 08/07/19 08:00 Anion Gap 6 MMOL/L (8-16) L 08/07/19 08:00 BUN 11.3 mg/dL (7-18) 08/07/19 08:00 Creatinine 1.1 mg/dL (0.55-1.3) 08/07/19 08:00 Random Glucose 96 mg/dL (74-106) 08/07/19 08:00 Calcium 8.8 mg/dL (8.5-10.1) 08/07/19 08:00 Laboratory Last Values WBC 5.2 K/mm3 (4.0-10.0) 08/07/19 08:00 RBC 4.87 M/mm3 (4.00-5.60) 08/07/19 08:00 Hgb 13.1 GM/dL (11.7-16.9) 08/07/19 08:00 Hct 40.5 % (35.4-49) 08/07/19 08:00 MCV 83.2 fl (80-96) 08/07/19 08:00 MCH 26.8 pg (25.7-33.7) 08/07/19 08:00 MCHC 32.2 g/dl (32.0-35.9) 08/07/19 08:00 RDW 15.8 % (11.9-15.9) 08/07/19 08:00 Plt Count 231 K/MM3 (134-434) 08/07/19 08:00 MPV 8.2 fl (7.5-11.1) 08/07/19 08:00 Sodium 138 mmol/L (136-145) 08/07/19 08:00 Potassium 3.4 mmol/L (3.5-5.1) L 08/07/19 08:00 Chloride 102 mmol/L (98-107) 08/07/19 08:00 Carbon Dioxide 30 mmol/L (21-32) 08/07/19 08:00 Anion Gap 6 MMOL/L (8-16) L 08/07/19 08:00 BUN 11.3 mg/dL (7-18) 08/07/19 08:00 Creatinine 1.1 mg/dL (0.55-1.3) 08/07/19 08:00 Est GFR (CKD-EPI)AfAm 88.36 08/07/19 08:00 Est GFR (CKD-EPI)NonAf 76.24 08/07/19 08:00 Random Glucose 96 mg/dL (74-106) 08/07/19 08:00 Calcium 8.8 mg/dL (8.5-10.1) 08/07/19 08:00 Total Bilirubin 0.2 mg/dL (0.2-1) 08/07/19 08:00 AST 94 U/L (15-37) H 08/07/19 08:00 ALT 64 U/L (13-61) H 08/07/19 08:00 Alkaline Phosphatase 76 U/L (45-117) 08/07/19 08:00 Total Protein 7.1 g/dl (6.4-8.2) 08/07/19 08:00 Albumin 3.3 g/dl (3.4-5.0) L 08/07/19 08:00 Urine Color Yellow 08/06/19 09:13 Urine Appearance Clear 08/06/19 09:13 Urine pH 5.5 (5.0-8.0) 08/06/19 09:13 Ur Specific [place] 1.025 (1.010-1.035) 08/06/19 09:13 Urine Protein Trace (NEGATIVE) 08/06/19 09:13 Urine Glucose (UA) Negative (NEGATIVE) 08/06/19 09:13 Urine Ketones Negative (NEGATIVE) 08/06/19 09:13 Urine Blood Negative (NEGATIVE) 08/06/19 09:13 Urine Nitrite Negative (NEGATIVE) 08/06/19 09:13 Urine Bilirubin Negative (NEGATIVE) 08/06/19 09:13 Urine Urobilinogen 0.2 mg/dL (0.2-1.0) 08/06/19 09:13 Ur Leukocyte Esterase Negative (NEGATIVE) 08/06/19 09:13 Labs noted. Pertinent Admission Physical Exam Findings: withdrawal symptoms. - Treatment Hospital Course: Detox Protocol Followed, Detoxed Safely, Responded well, Discharged Condition Good, Rehab Referral Accepted Patient has Accepted a Rehab Referral to: [facility]. - Medication Discharge Medications: Ambulatory Orders Olanzapine [ZyPREXA -] 10 mg PO HS #30 tablet 12/21/14 Amlodipine Besylate [Norvasc -] 10 mg PO DAILY #30 tablet 09/27/17 Hydrochlorothiazide [Hctz -] 25 mg PO DAILY 09/05/18 Paroxetine HCl [Paxil -] 20 mg PO DAILY 12/23/18 - Diagnosis (1) Alcohol dependence with uncomplicated withdrawal Status: Acute (2) Acid reflux Status: Chronic Qualifiers: Esophagitis presence: without esophagitis Qualified Code(s): K21.9 - Gastro -esophageal reflux disease without esophagitis (3) Arthritis of both knees Status: Chronic (4) COPD (chronic obstructive pulmonary disease) Status: Chronic Qualifiers: COPD type: unspecified COPD Qualified Code(s): J44.9 - Chronic obstructive pulmonary disease, unspecified (5) Cannabis abuse, uncomplicated Status: Chronic (6) Cocaine dependence Status: Chronic Qualifiers: Substance use status: uncomplicated Qualified Code(s): F14.20 - Cocaine dependence, uncomplicated (7) Essential hypertension Status: Chronic (8) Nicotine dependence Status: Chronic Qualifiers: Nicotine product type: cigarettes Substance use status: uncomplicated Qualified Code(s): F17.210 - Nicotine dependence, cigarettes, uncomplicated (9) Use of cane as ambulatory aid Status: Chronic (10) History of gout Status: Chronic - AMA Did Patient Leave Against Medical Advice: No
[2019-08-09] MEDS ORDERED: chlordiazePOXIDE HCL 10 MG CAPSULE PO ONE (05:00)
== END 2019-08-08 12:45 | disposition other institution (70) | DRG 774 ==
LOC: YASAS 16:52 → Y3N 08-06 00:55
PROVIDERS: ADMIT Allergy & Immunology; ATTEND Allergy & Immunology
PROC: HZ2ZZZZ Detoxification Services for Substance Abuse Treatment (ICD-10-PCS; principal; 2019-08-06)
DX: F10.230 Alcohol dependence with withdrawal, uncomplicated (principal); F14.20 Cocaine dependence, uncomplicated; F12.20 Cannabis dependence, uncomplicated; F17.210 Nicotine dependence, cigarettes, uncomplicated; F20.9 Schizophrenia, unspecified; F25.9 Schizoaffective disorder, unspecified; F19.24 Other psychoactive substance dependence with psychoactive substance-induced mood disorder; I10 Essential (primary) hypertension; K21.9 Gastro-esophageal reflux disease without esophagitis; M17.0 Bilateral primary osteoarthritis of knee; J44.9 Chronic obstructive pulmonary disease, unspecified; E78.5 Hyperlipidemia, unspecified; R26.2 Difficulty in walking, not elsewhere classified; Z99.89 Dependence on other enabling machines and devices; Z91.14 Patient's other noncompliance with medication regimen; Z56.0 Unemployment, unspecified
CPT/HCPCS: 36415; 80053; 81003; 85027; J0735

== ENCOUNTER 2019-08-08 13:04 | Inpatient (IN) | payer OTHER ==
--- NOTE | 2019-08-08 13:50 | HP ---
[facility] Rehab Assess/Revision - Admission History Admitted to Rehab from: [facility] Date of Admission to Rehab: 08/08/19 - Findings Detox History & Physical reviewed: Yes Concur with findings: Yes Comments/Additional Findings: As per H/P:Alcohol use began at age 17. Currently drinking 2- 3 6 pk beers - 24 oz/day - shots of liquor. Cocaine use began at age 19. Currently smokes $50-100/day. Marijuana use began at age 17. Currently uses 2 x/month. Nicotine use began at age 17. Smokes 1/2 PPD. Patient refuses nicotine patch and gum despite discussion r/t benefits during detox process. PMHx: HTN (non-compliant) COPD, Gout. MHHx: Bipolar; Paranoid Schizo; Depression. Denies thoughts of harming self or others. Non-compliant w/ MH f/u or meds. SHx: Domiciled. Unemployed (SSI); Denies legal issues. Inpatient Rehab Admission - Rehab Decision to Admit Inpatient rehab admission?: Yes - Initial Determination Are CD services needed?: Yes Free of communicable disease: Yes Not in need of hospitalization: Yes - Rehab Admission Criteria Previous failed treatment: Yes Poor recovery environment: Yes Comorbidities: Yes Lacks judgement: Yes Patient is meeting Inpatient Rehab admission criteria:: Yes
[2019-08-08] MEDS ORDERED: hydrOXYzine PAMOATE 50 MG CAPSULE (FP) PO PRN (13:57)
[2019-08-08] MEDS ORDERED: NICOTINE POLACRILEX 2 MG GUM BUC PRN (13:57)
[2019-08-08] MEDS ORDERED: MAGNESIUM HYDROX 2400MG/30ML ORAL SUSPENSION 30 ML CUP PO PRN (13:57)
[2019-08-08] MEDS ORDERED: P-EPHED 60MG/TRIPROLIDI 2.5MG TABLET PO PRN (13:57)
[2019-08-08] MEDS ORDERED: MAG HYDROX/AL HYDROX/SIMETH 30 ML UNIT-DOSE CUP PO PRN (13:57)
[2019-08-08] MEDS ORDERED: ACETAMINOPHEN 325 MG TABLET (FP) PO PRN (13:57)
[2019-08-08] MEDS ORDERED: IBUPROFEN 400 MG TABLET (FP) PO PRN (13:57)
[2019-08-08] MEDS ORDERED: LOPERAMIDE HCL 2 MG CAPSULE PO PRN (13:57)
[2019-08-08] MEDS ORDERED: MAGNESIUM CITRATE 300 ML BOTTLE PO PRN (13:57)
[2019-08-08] MEDS ORDERED: MENTHOL/PHENOL 1 EACH UD MM PRN (13:57)
[2019-08-08] MEDS ORDERED: guaiFENesin 200 MG/10 ML 10 ML UNIT-DOSE CUPS PO PRN (13:57)
[2019-08-08] MEDS: NICOTINE 14 MG/24 HOURS TOPICAL PATCH TD SCH (15:16)
--- NOTE | 2019-08-08 17:57 | PN ---
[facility] Progress Note Note: Psychiatry Attending's note : Informed of patient's admission to [address] For rehabilitation. Called to enter orders for psychotropic medications. Chart reviewed. Psychiatric consult by ADAN Marks (08/06/19) : appreciated. Confirmed dose of olanzapine as 10 mg po hs. Director Of Career Resources met with the patient. Side effects/benefits discussed. Mr Murphy reports good tolerability to that medication. Patient agrees to the continuation of olanzapine in this hospital course.
[2019-08-08] MEDS: THIAMINE HCL 100 MG TABLET (FP) PO SCH (21:56)
[2019-08-08] MEDS: OLANZapine 10 MG TABLET PO SCH (21:56)
[2019-08-09] MEDS: amLODIPine BESYLATE 10 MG TABLET (FP) PO SCH (10:00)
[2019-08-09] MEDS: HYDROCHLOROTHIAZIDE 12.5 MG CAPSULE (FP) PO SCH (10:00)
[2019-08-09] MEDS: PRENATAL VITAMINS W/ FOLIC ACID TABLET (FP) PO SCH (10:01)
[2019-08-09] MEDS: NICOTINE 14 MG/24 HOURS TOPICAL PATCH TD SCH (10:02)
[2019-08-09] MEDS: THIAMINE HCL 100 MG TABLET (FP) PO SCH (21:51)
[2019-08-09] MEDS: OLANZapine 10 MG TABLET PO SCH (21:51)
[2019-08-09] MEDS: MELATONIN 5 MG TABLETS PO PRN (21:51)
[2019-08-10] MEDS: PRENATAL VITAMINS W/ FOLIC ACID TABLET (FP) PO SCH (10:34)
[2019-08-10] MEDS: HYDROCHLOROTHIAZIDE 12.5 MG CAPSULE (FP) PO SCH (10:34)
[2019-08-10] MEDS: NICOTINE 14 MG/24 HOURS TOPICAL PATCH TD SCH (10:34)
[2019-08-10] MEDS: amLODIPine BESYLATE 10 MG TABLET (FP) PO SCH (10:34)
[2019-08-10] MEDS: OLANZapine 10 MG TABLET PO SCH (22:08)
[2019-08-10] MEDS: THIAMINE HCL 100 MG TABLET (FP) PO SCH (22:08)
[2019-08-11] MEDS: NICOTINE 14 MG/24 HOURS TOPICAL PATCH TD SCH (10:36)
[2019-08-11] MEDS: amLODIPine BESYLATE 10 MG TABLET (FP) PO SCH (10:36)
[2019-08-11] MEDS: PRENATAL VITAMINS W/ FOLIC ACID TABLET (FP) PO SCH (10:36)
[2019-08-11] MEDS: HYDROCHLOROTHIAZIDE 12.5 MG CAPSULE (FP) PO SCH (10:36)
[2019-08-11] MEDS: MELATONIN 5 MG TABLETS PO PRN (22:13)
[2019-08-11] MEDS: OLANZapine 10 MG TABLET PO SCH (22:13)
[2019-08-11] MEDS: THIAMINE HCL 100 MG TABLET (FP) PO SCH (22:14)
[2019-08-12] MEDS: PRENATAL VITAMINS W/ FOLIC ACID TABLET (FP) PO SCH (10:57)
[2019-08-12] MEDS: amLODIPine BESYLATE 10 MG TABLET (FP) PO SCH (10:57)
[2019-08-12] MEDS: NICOTINE 14 MG/24 HOURS TOPICAL PATCH TD SCH (10:58)
[2019-08-12] MEDS: HYDROCHLOROTHIAZIDE 12.5 MG CAPSULE (FP) PO SCH (10:58)
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
[2019-08-12] MEDS: THIAMINE HCL 100 MG TABLET (FP) PO SCH (22:05)
[2019-08-12] MEDS: OLANZapine 10 MG TABLET PO SCH (22:05)
[2019-08-13] MEDS: amLODIPine BESYLATE 10 MG TABLET (FP) PO SCH (11:13)
[2019-08-13] MEDS: HYDROCHLOROTHIAZIDE 12.5 MG CAPSULE (FP) PO SCH (11:13)
[2019-08-13] MEDS: PRENATAL VITAMINS W/ FOLIC ACID TABLET (FP) PO SCH (11:13)
[2019-08-13] MEDS: NICOTINE 14 MG/24 HOURS TOPICAL PATCH TD SCH (11:14)
[2019-08-13] MEDS: THIAMINE HCL 100 MG TABLET (FP) PO SCH (22:14)
[2019-08-13] MEDS: OLANZapine 10 MG TABLET PO SCH (22:14)
[2019-08-14] MEDS: HYDROCHLOROTHIAZIDE 12.5 MG CAPSULE (FP) PO SCH (10:52)
[2019-08-14] MEDS: amLODIPine BESYLATE 10 MG TABLET (FP) PO SCH (10:52)
[2019-08-14] MEDS: PRENATAL VITAMINS W/ FOLIC ACID TABLET (FP) PO SCH (10:52)
[2019-08-14] MEDS: NICOTINE 14 MG/24 HOURS TOPICAL PATCH TD SCH (10:52)
[2019-08-14] MEDS: OLANZapine 10 MG TABLET PO SCH (22:04)
[2019-08-14] MEDS: THIAMINE HCL 100 MG TABLET (FP) PO SCH (22:04)
[2019-08-15] MEDS: PRENATAL VITAMINS W/ FOLIC ACID TABLET (FP) PO SCH (10:56)
[2019-08-15] MEDS: HYDROCHLOROTHIAZIDE 12.5 MG CAPSULE (FP) PO SCH (10:56)
[2019-08-15] MEDS: amLODIPine BESYLATE 10 MG TABLET (FP) PO SCH (10:56)
[2019-08-15] MEDS: NICOTINE 14 MG/24 HOURS TOPICAL PATCH TD SCH (10:57)
[2019-08-15] MEDS: OLANZapine 10 MG TABLET PO SCH (22:12)
[2019-08-15] MEDS: THIAMINE HCL 100 MG TABLET (FP) PO SCH (22:12)
[2019-08-16] MEDS: PRENATAL VITAMINS W/ FOLIC ACID TABLET (FP) PO SCH (10:51)
[2019-08-16] MEDS: HYDROCHLOROTHIAZIDE 12.5 MG CAPSULE (FP) PO SCH (10:52)
[2019-08-16] MEDS: amLODIPine BESYLATE 10 MG TABLET (FP) PO SCH (10:52)
[2019-08-16] MEDS: NICOTINE 14 MG/24 HOURS TOPICAL PATCH TD SCH (10:52)
[2019-08-16] MEDS: MELATONIN 5 MG TABLETS PO PRN (22:21)
[2019-08-16] MEDS: OLANZapine 10 MG TABLET PO SCH (22:21)
[2019-08-16] MEDS: THIAMINE HCL 100 MG TABLET (FP) PO SCH (22:21)
[2019-08-17] MEDS: NICOTINE 14 MG/24 HOURS TOPICAL PATCH TD SCH (10:52)
[2019-08-17] MEDS: amLODIPine BESYLATE 10 MG TABLET (FP) PO SCH (10:52)
[2019-08-17] MEDS: PRENATAL VITAMINS W/ FOLIC ACID TABLET (FP) PO SCH (10:52)
[2019-08-17] MEDS: HYDROCHLOROTHIAZIDE 12.5 MG CAPSULE (FP) PO SCH (13:07)
[2019-08-17] MEDS: THIAMINE HCL 100 MG TABLET (FP) PO SCH (22:15)
[2019-08-17] MEDS: OLANZapine 10 MG TABLET PO SCH (22:15)
[2019-08-18] MEDS: NICOTINE 14 MG/24 HOURS TOPICAL PATCH TD SCH (12:02)
[2019-08-18] MEDS: amLODIPine BESYLATE 10 MG TABLET (FP) PO SCH (12:02)
[2019-08-18] MEDS: PRENATAL VITAMINS W/ FOLIC ACID TABLET (FP) PO SCH (12:02)
[2019-08-18] MEDS: HYDROCHLOROTHIAZIDE 12.5 MG CAPSULE (FP) PO SCH (15:51)
[2019-08-18] MEDS: THIAMINE HCL 100 MG TABLET (FP) PO SCH (22:03)
[2019-08-18] MEDS: MELATONIN 5 MG TABLETS PO PRN (22:03)
[2019-08-18] MEDS: OLANZapine 10 MG TABLET PO SCH (22:03)
[2019-08-19] MEDS: PRENATAL VITAMINS W/ FOLIC ACID TABLET (FP) PO SCH (10:58)
[2019-08-19] MEDS: HYDROCHLOROTHIAZIDE 12.5 MG CAPSULE (FP) PO SCH (10:58)
[2019-08-19] MEDS: amLODIPine BESYLATE 10 MG TABLET (FP) PO SCH (10:59)
[2019-08-19] MEDS: NICOTINE 14 MG/24 HOURS TOPICAL PATCH TD SCH (10:59)
[2019-08-19] MEDS: THIAMINE HCL 100 MG TABLET (FP) PO SCH (22:09)
[2019-08-19] MEDS: OLANZapine 10 MG TABLET PO SCH (22:09)
[2019-08-20 06:40] VITALS: TEMP 97.2
[2019-08-20] MEDS: NICOTINE 14 MG/24 HOURS TOPICAL PATCH TD SCH (11:34)
[2019-08-20] MEDS: amLODIPine BESYLATE 10 MG TABLET (FP) PO SCH (11:34)
[2019-08-20] MEDS: HYDROCHLOROTHIAZIDE 12.5 MG CAPSULE (FP) PO SCH (11:34)
[2019-08-20] MEDS: PRENATAL VITAMINS W/ FOLIC ACID TABLET (FP) PO SCH (11:34)
[2019-08-20] MEDS: THIAMINE HCL 100 MG TABLET (FP) PO SCH (22:11)
[2019-08-20] MEDS: OLANZapine 10 MG TABLET PO SCH (22:11)
[2019-08-21] MEDS: PRENATAL VITAMINS W/ FOLIC ACID TABLET (FP) PO SCH (10:24)
[2019-08-21] MEDS: HYDROCHLOROTHIAZIDE 12.5 MG CAPSULE (FP) PO SCH (10:24)
[2019-08-21] MEDS: amLODIPine BESYLATE 10 MG TABLET (FP) PO SCH (10:24)
[2019-08-21] MEDS: NICOTINE 14 MG/24 HOURS TOPICAL PATCH TD SCH (10:25)
[2019-08-21 11:33] VITALS: BP 107/78; PULSE 98
--- NOTE | 2019-08-21 15:10 | PN ---
[facility] Progress Note Note: Patient is scheduled for discharge tomorrow. Script for 30 days supply of Zyprexa 10 mg/hs will be electronically transmitted to [facility] at [address] [place] [id number]
[2019-08-21] MEDS: OLANZapine 10 MG TABLET PO SCH (21:57)
[2019-08-21] MEDS: THIAMINE HCL 100 MG TABLET (FP) PO SCH (21:57)
[2019-08-22] MEDS: amLODIPine BESYLATE 10 MG TABLET (FP) PO SCH (09:05)
[2019-08-22] MEDS: PRENATAL VITAMINS W/ FOLIC ACID TABLET (FP) PO SCH (09:05)
[2019-08-22] MEDS: HYDROCHLOROTHIAZIDE 12.5 MG CAPSULE (FP) PO SCH (09:05)
[2019-08-22] MEDS: NICOTINE 14 MG/24 HOURS TOPICAL PATCH TD SCH (09:06)
--- NOTE | 2019-08-22 09:14 | DS ---
[facility] Detox Discharge Summary Admission Date: 08/08/19 Discharge Date: 08/22/19 - History Present History: Alcohol Dependence, Cannabis Dependence Additional Comments: Pt is a 54 y/o male with a hx of JERED admitted to rehab and scheduled for discharge today. Pt reports he has a PCP Dr. Isabel in [place], [place]. Pt reports he moved away 8 months ago to the [place] and will be seeing another PCP after discharge. - Physical Exam Results Vital Signs: Vital Signs Temperature 97.2 F L 08/20/19 06:40 Pulse Rate 98 H 08/21/19 10:00 Respiratory Rate 18 08/22/19 07:47 Blood Pressure 107/78 08/21/19 10:00 O2 Sat by Pulse Oximetry (%) - Medication Discharge Medications: Ambulatory Orders Amlodipine Besylate [Norvasc -] 10 mg PO DAILY #30 tablet 09/27/17 Hydrochlorothiazide [Hctz -] 25 mg PO DAILY 09/05/18 Olanzapine [ZyPREXA -] 10 mg PO HS #30 tablet 08/21/19
--- NOTE | 2019-08-22 09:22 | DS ---
[facility] Rehab Discharge Summary - [facility] Rehab Discharge Summary Admission Date: 08/08/19 Discharge Date: 08/22/19 - History Present History: Alcohol dependence, Cannabis dependence, Cocaine dependence Additional Comments: Pt is a 54 y/o male with a hx of JERED admitted to rehab and scheduled for discharge today. Pt reports he has a PCP Dr. Isabel in [place], [place]. Pt reports he moved away 8 months ago from [facility] to the [place] and will be seeing another PCP in the [place] after discharge. Pertinent Past History: HTN Hypercholesterolemia(no current meds) Arthritis bilateral knees Hx Gout Use of Cane as Ambulatory Aid(walks with a limp) Hx Psychiatric Disorder - Discharge Physical Exam Vital Signs: Vital Signs Temperature 97.2 F L 08/20/19 06:40 Pulse Rate 98 H 08/21/19 10:00 Respiratory Rate 18 08/22/19 07:47 Blood Pressure 107/78 08/21/19 10:00 O2 Sat by Pulse Oximetry (%) Alert o x 3, denies s/h/i nad oob ambulating with a cane with a limp. cardiac:s1 s2,rrr lungs:cta,nate. abdomen:+bs,soft,nt,nd extremities/skin:no edema;skin intact. Pertinent Admission Physical Exam Findings: Laboratory Tests 08/09/19 08/09/19 07:20 07:20 Potassium 4.0 HIV 1&2 Antibody Screen Negative HIV P24 Antigen Negative Limps on ambulation/use of Cane. - Treatment Discharge Condition: Discharge condition good Hospital Course: Rehabilitated safely and responded well. participated in groups and individual sessions. - Medication Discharge Medications: Ambulatory Orders Amlodipine Besylate [Norvasc -] 10 mg PO DAILY #30 tablet 09/27/17 Hydrochlorothiazide [Hctz -] 25 mg PO DAILY 09/05/18 Olanzapine [ZyPREXA -] 10 mg PO HS #30 tablet 08/21/19 - Medication-Assisted Treatment (MAT) Medication-Assisted Treatment (MAT): No - Discharge Instructions Diet, activity, other medical instructions: Diet:MAHSA Activity:oob ad brock with cane Other medical instructions:follow up with primary care with Evie at [facility] as scheduled. follow up with [facility] aftercare recommendations as scheduled in discharge papers. - Diagnosis (1) Essential hypertension Current Visit: Yes Status: Chronic (2) Arthritis of both knees Current Visit: Yes Status: Chronic (3) Use of cane as ambulatory aid Current Visit: Yes Status: Chronic (4) Gout Current Visit: Yes Status: Suspected Qualifiers: Gout site: multiple sites Gout etiology: other secondary cause Chronicity : chronic Presence of tophus: without tophus Qualified Code(s): M1A.49X0 - Other secondary chronic gout, multiple sites, without tophus (tophi) (5) Nicotine dependence Current Visit: Yes Status: Chronic Qualifiers: Nicotine product type: cigarettes Substance use status: uncomplicated Qualified Code(s): F17.210 - Nicotine dependence, cigarettes, uncomplicated (6) Acid reflux Current Visit: Yes Status: Resolved Qualifiers: Esophagitis presence: without esophagitis Qualified Code(s): K21.9 - Gastro -esophageal reflux disease without esophagitis (7) Cocaine dependence Current Visit: Yes Status: Chronic Qualifiers: Substance use status: uncomplicated Qualified Code(s): F14.20 - Cocaine dependence, uncomplicated (8) History of gout Current Visit: Yes Status: Chronic (9) Alcohol dependence Current Visit: Yes Status: Chronic Qualifiers: Substance use status: uncomplicated Qualified Code(s): F10.20 - Alcohol dependence, uncomplicated (10) Cannabis abuse Current Visit: Yes Status: Chronic - Follow-up Referral Minutes to complete discharge: 25 - AMA Did Patient Leave Against Medical Advice: No Additional Comments: pt states he has more than enough medications-Norvasc and Hydrochlorothiazide at home and will follow up with PCP for future scripts. States no need for courtesy Rx today.
== END 2019-08-22 10:05 | disposition home or self-care (01) | DRG 772 ==
LOC: YASAS 13:04 → Y5N 13:05
PROVIDERS: ADMIT Neuromusculoskeletal Medicine & OMM; ATTEND Neuromusculoskeletal Medicine & OMM
PROC: HZ42ZZZ Group Counseling for Substance Abuse Treatment, Cognitive-Behavioral (ICD-10-PCS; principal; 2019-08-08)
DX: F10.20 Alcohol dependence, uncomplicated (principal); F14.20 Cocaine dependence, uncomplicated; F12.20 Cannabis dependence, uncomplicated; F19.24 Other psychoactive substance dependence with psychoactive substance-induced mood disorder; F19.282 Other psychoactive substance dependence with psychoactive substance-induced sleep disorder; I10 Essential (primary) hypertension; E78.00 Pure hypercholesterolemia, unspecified; J44.9 Chronic obstructive pulmonary disease, unspecified; K21.9 Gastro-esophageal reflux disease without esophagitis; M1A.49X0 Other secondary chronic gout, multiple sites, without tophus (tophi); M13.862 Other specified arthritis, left knee; M13.861 Other specified arthritis, right knee; R76.11 Nonspecific reaction to tuberculin skin test without active tuberculosis; R26.2 Difficulty in walking, not elsewhere classified; Z99.89 Dependence on other enabling machines and devices; Z86.2 Personal history of diseases of the blood and blood-forming organs and certain disorders involving the immune mechanism
CPT/HCPCS: 36415; 84132; 87389

== ENCOUNTER 2021-06-16 13:49 | Inpatient (IN) | payer OTHER ==
[2021-06-16] MEDS ORDERED: amLODIPine BESYLATE 10 MG TABLET (FP) PO ONE (14:19)
[2021-06-16] MEDS ORDERED: HYDROCHLOROTHIAZIDE 25 MG TABLET (FP) PO ONE (14:19)
[2021-06-16] MEDS ORDERED: FOLIC ACID INJECTION - 1 MG, THIAMINE HCL 100 MG, MULTIVIT INJECTION ADULT 10 ML in SOD... IVPB ONE (14:24)
[2021-06-16] MEDS ORDERED: MAG HYDROX/AL HYDROX/SIMETH 30 ML UNIT-DOSE CUP PO ONE (14:29)
[2021-06-16] MEDS ORDERED: FAMOTIDINE 20 MG/50 ML IVPB 20 MG/50 ML MG IVPB ONE ×2 (14:29→15:12)
[2021-06-16] MEDS ORDERED: amLODIPine BESYLATE 5 MG TABLET (FP) ONE (15:11)
[2021-06-16] MEDS ORDERED: HYDROCHLOROTHIAZIDE 25 MG TABLET (FP) ONE (15:11)
[2021-06-16] MEDS ORDERED: MAG HYDROX/AL HYDROX/SIMETH 30 ML UNIT-DOSE CUP ONE (15:12)
[2021-06-16] MEDS ORDERED: THIAMINE HCL 200 MG/2 ML VIAL IVPB ONE (15:34)
[2021-06-16] MEDS ORDERED: FOLIC ACID INJECTION - 1 MG, THIAMINE HCL 100 MG in SODIUM CHLORIDE 998.8 ML IVPB ONE (15:39)
[2021-06-16 16:06] LABS: EOS % 3.1 % (0-4.5); HEMATOCRIT 40.1 % (35.4-49); HEMOGLOBIN 13.3 GM/dL (11.7-16.9); LYMPH % 24.5 % (8-40); MCH 27.4 pg (25.7-33.7); MCHC 33.1 g/dl (32.0-35.9); MEAN CELL VOLUME 82.6 fl (80-96); MEAN PLT VOLUME 8.2 fl (7.5-11.1); MONO % 8.2 % (3.8-10.2); NEUT % 63.2 % (42.8-82.8); PLATELET COUNT 190 10^3/uL (134-434); RBC 4.85 M/mm3 (4.00-5.60); RDW 16.1 % (11.9-15.9); WHITE BLOOD COUNT 6.3 K/mm3 (4.0-10.0)
[2021-06-16 16:26] LABS: INR 0.89 (0.83-1.09)
[2021-06-16 16:27] LABS: ALBUMIN 3.8 g/dl (3.4-5.0); CALCIUM 9.1 mg/dL (8.5-10.1)
[2021-06-16 16:28] LABS: BLOOD UREA NITROGEN 12.9 mg/dL (7-18); MAGNESIUM 2.7 mg/dL (1.8-2.4)
[2021-06-16 16:29] LABS: ACTIVATED PTT 28.3 SECONDS (25.2-36.5)
[2021-06-16 16:31] LABS: CREATININE 1.1 mg/dL (0.55-1.3); PHOSPHOROUS 3.7 mg/dL (2.5-4.9)
[2021-06-16 16:32] LABS: BILIRUBIN,TOTAL 0.3 mg/dL (0.2-1); TOT PROT 8.3 g/dl (6.4-8.2)
[2021-06-16 16:36] LABS: N-TERMINAL BNP 1029.3 pg/ml (5-125)
[2021-06-16] MEDS ORDERED: SODIUM CHLORIDE 1,000 ML IV SCH (18:45)
[2021-06-16 19:58] LABS: URINE APPEARANCE CLEAR; URINE BILIRUBIN NEGATIVE (NEGATIVE); URINE COLOR YELLOW; URINE GLUCOSE (UA) NEGATIVE (NEGATIVE); URINE KETONE NEGATIVE (NEGATIVE); URINE LEUK ESTERASE NEGATIVE (NEGATIVE); URINE NITRITE NEGATIVE (NEGATIVE); URINE PROTEIN NEGATIVE (NEGATIVE); URINE UROBILINOGEN 0.2 mg/dL (0.2-1.0)
[2021-06-16 20:22] LABS: COCAINE, UR POSITIVE (NEGATIVE); METHADONE, UR NEGATIVE (NEGATIVE); OPIATES, URI NEGATIVE (NEGATIVE); PHENCYCLIDINE,URINE NEGATIVE (NEGATIVE); URINE AMPHETAMINES NEGATIVE (NEGATIVE); URINE BARBITURATES NEGATIVE (NEGATIVE); URINE BENZODIAZEPINES NEGATIVE (NEGATIVE)
[2021-06-16] MEDS ORDERED: HEPARIN NA (PORCINE) 5,000 UNITS/ML 1ML VIAL ONE (21:52)
[2021-06-16] MEDS ORDERED: hydrALAZINE HCL 25 MG TABLET (FP) ONE (21:52)
[2021-06-16] MEDS ORDERED: FAMOTIDINE 20 MG TABLET ONE (21:52)
[2021-06-16] MEDS: hydrALAZINE HCL 10 MG TABLET PO SCH (22:06)
[2021-06-16] MEDS: FAMOTIDINE 20 MG TABLET PO SCH (22:06)
[2021-06-16] MEDS: HEPARIN NA (PORCINE) 5,000 UNITS/ML 1ML VIAL SQ SCH (22:07)
[2021-06-17] MEDS: HEPARIN NA (PORCINE) 5,000 UNITS/ML 1ML VIAL SQ SCH ×3 (06:04→23:33)
[2021-06-17] MEDS ORDERED: hydrALAZINE HCL 25 MG TABLET (FP) ONE (06:16)
[2021-06-17] MEDS ORDERED: HEPARIN NA (PORCINE) 5,000 UNITS/ML 1ML VIAL ONE ×2 (06:16→14:39)
[2021-06-17] MEDS ORDERED: LORazepam 2 MG/ML SDV VIAL IVPUSH PRN (06:31)
[2021-06-17] MEDS: hydrALAZINE HCL 10 MG TABLET PO SCH ×3 (06:34→23:34)
[2021-06-17 08:10] LABS: ALBUMIN 3.3 g/dl (3.4-5.0); CALCIUM 8.3 mg/dL (8.5-10.1)
[2021-06-17 08:11] LABS: BLOOD UREA NITROGEN 14.4 mg/dL (7-18); MAGNESIUM 2.3 mg/dL (1.8-2.4)
[2021-06-17 08:14] LABS: CREATININE 1.1 mg/dL (0.55-1.3); PHOSPHOROUS 3.1 mg/dL (2.5-4.9)
[2021-06-17 08:15] LABS: TOT PROT 7.3 g/dl (6.4-8.2)
[2021-06-17 08:21] LABS: BASO % 1.8 % (0-2.0); HEMATOCRIT 37.8 % (35.4-49); HEMOGLOBIN 12.8 GM/dL (11.7-16.9); LYMPH % 26.2 % (8-40); MCH 27.8 pg (25.7-33.7); MCHC 33.7 g/dl (32.0-35.9); MEAN CELL VOLUME 82.5 fl (80-96); MEAN PLT VOLUME 8.3 fl (7.5-11.1); MONO % 9.4 % (3.8-10.2); NEUT % 56.6 % (42.8-82.8); PLATELET COUNT 170 10^3/uL (134-434); RBC 4.59 M/mm3 (4.00-5.60); RDW 15.4 % (11.9-15.9); WHITE BLOOD COUNT 5.7 K/mm3 (4.0-10.0)
[2021-06-17] MEDS ORDERED: POTASSIUM CHLORIDE ORAL LIQUID 20 MEQ/15 ML PO ONE (09:47)
[2021-06-17] MEDS ORDERED: AMOX TR/POT CLAV 875MG/125MG TABLETS (FP) PO SCH (10:45)
[2021-06-17] MEDS ORDERED: MULTIVITAMINS (DAILY MVI) TABLET (FP) ONE (12:01)
[2021-06-17] MEDS ORDERED: THIAMINE HCL 100 MG TABLET (FP) ONE (12:01)
[2021-06-17] MEDS ORDERED: PT OWN MED DRAWER 7, Y5N ONE (12:01)
[2021-06-17] MEDS ORDERED: FAMOTIDINE 20 MG TABLET ONE (12:01)
[2021-06-17] MEDS: THIAMINE HCL 100 MG TABLET (FP) PO SCH (12:05)
[2021-06-17] MEDS: FAMOTIDINE 20 MG TABLET PO SCH ×2 (12:05→23:34)
[2021-06-17] MEDS: MULTIVITAMINS (DAILY MVI) TABLET (FP) PO SCH (12:05)
[2021-06-17] MEDS: SODIUM CHLORIDE 1,000 ML IV SCH (12:06)
[2021-06-17] MEDS ORDERED: KCL 10 MEQ IVPB 10 MEQ/100 ML INFUS.BAG IVPB ONE (13:05)
[2021-06-17] MEDS: KCL 10 MEQ IVPB 10 MEQ/100 ML INFUS.BAG IVPB SCH ×3 (13:25→16:55)
[2021-06-17] MEDS ORDERED: amLODIPine BESYLATE 10 MG TABLET (FP) PO SCH (15:00)
[2021-06-17] MEDS: NICOTINE 14 MG/24 HOURS TOPICAL PATCH TD SCH (17:43)
[2021-06-18 02:51] VITALS: BMI 19.8
[2021-06-18] MEDS: SODIUM CHLORIDE 1,000 ML IV SCH ×2 (04:00→14:51)
[2021-06-18] MEDS: hydrALAZINE HCL 10 MG TABLET PO SCH (06:08)
[2021-06-18] MEDS: HEPARIN NA (PORCINE) 5,000 UNITS/ML 1ML VIAL SQ SCH ×3 (06:08→21:06)
[2021-06-18 07:52] LABS: CALCIUM 8.4 mg/dL (8.5-10.1)
[2021-06-18 07:53] LABS: BLOOD UREA NITROGEN 16.4 mg/dL (7-18); MAGNESIUM 2.1 mg/dL (1.8-2.4)
[2021-06-18 07:56] LABS: CREATININE 1.2 mg/dL (0.55-1.3); PHOSPHOROUS 3.7 mg/dL (2.5-4.9)
[2021-06-18 07:58] LABS: BILIRUBIN,TOTAL 0.5 mg/dL (0.2-1); TOT PROT 6.8 g/dl (6.4-8.2)
[2021-06-18 08:11] LABS: HEMATOCRIT 38.1 % (35.4-49); HEMOGLOBIN 12.7 GM/dL (11.7-16.9); MCHC 33.3 g/dl (32.0-35.9); MEAN CELL VOLUME 84.2 fl (80-96); MEAN PLT VOLUME 8.6 fl (7.5-11.1); PLATELET COUNT 170 10^3/uL (134-434); RBC 4.52 M/mm3 (4.00-5.60); RDW 15.9 % (11.9-15.9); WHITE BLOOD COUNT 5.8 K/mm3 (4.0-10.0)
[2021-06-18] MEDS ORDERED: POTASSIUM CHLORIDE TABS 20 MEQ TABLET.ER (FP) PO ONE (09:00)
[2021-06-18] MEDS: FAMOTIDINE 20 MG TABLET PO SCH ×2 (09:38→21:06)
[2021-06-18] MEDS: MULTIVITAMINS (DAILY MVI) TABLET (FP) PO SCH (09:38)
[2021-06-18] MEDS: THIAMINE HCL 100 MG TABLET (FP) PO SCH (09:38)
[2021-06-18] MEDS: amLODIPine BESYLATE 10 MG TABLET (FP) PO SCH (09:38)
[2021-06-18] MEDS: NICOTINE 14 MG/24 HOURS TOPICAL PATCH TD SCH (09:39)
[2021-06-18] MEDS: hydrALAZINE HCL 25 MG TABLET (FP) PO SCH (21:06)
[2021-06-19] MEDS: SODIUM CHLORIDE 1,000 ML IV SCH ×5 (00:09→22:31)
[2021-06-19] MEDS: HEPARIN NA (PORCINE) 5,000 UNITS/ML 1ML VIAL SQ SCH ×3 (05:25→21:17)
[2021-06-19 09:01] LABS: HEMATOCRIT 40.2 % (35.4-49); HEMOGLOBIN 13.3 GM/dL (11.7-16.9); MCH 27.9 pg (25.7-33.7); MCHC 33.1 g/dl (32.0-35.9); MEAN CELL VOLUME 84.5 fl (80-96); MEAN PLT VOLUME 8.3 fl (7.5-11.1); PLATELET COUNT 166 10^3/uL (134-434); RBC 4.76 M/mm3 (4.00-5.60); WHITE BLOOD COUNT 5.1 K/mm3 (4.0-10.0)
[2021-06-19 09:21] LABS: BLOOD UREA NITROGEN 12.1 mg/dL (7-18); CALCIUM 8.3 mg/dL (8.5-10.1)
[2021-06-19 09:22] LABS: ALBUMIN 3.2 g/dl (3.4-5.0); MAGNESIUM 2.1 mg/dL (1.8-2.4)
[2021-06-19 09:24] LABS: PHOSPHOROUS 2.2 mg/dL (2.5-4.9)
[2021-06-19 09:26] LABS: BILIRUBIN,TOTAL 0.4 mg/dL (0.2-1); TOT PROT 7.3 g/dl (6.4-8.2)
[2021-06-19] MEDS: MULTIVITAMINS (DAILY MVI) TABLET (FP) PO SCH (10:34)
[2021-06-19] MEDS: FAMOTIDINE 20 MG TABLET PO SCH ×2 (10:34→21:16)
[2021-06-19] MEDS: THIAMINE HCL 100 MG TABLET (FP) PO SCH (10:34)
[2021-06-19] MEDS: amLODIPine BESYLATE 10 MG TABLET (FP) PO SCH (10:35)
[2021-06-19] MEDS: NICOTINE 14 MG/24 HOURS TOPICAL PATCH TD SCH (10:35)
[2021-06-19] MEDS: hydrALAZINE HCL 25 MG TABLET (FP) PO SCH ×2 (10:35→21:17)
[2021-06-19] MEDS: NAPH,MB-DB/K PH,MBDB POWDER PACKET PO SCH ×2 (15:08→21:17)
[2021-06-20] MEDS: SODIUM CHLORIDE 1,000 ML IV SCH ×5 (03:30→20:30)
[2021-06-20] MEDS: HEPARIN NA (PORCINE) 5,000 UNITS/ML 1ML VIAL SQ SCH ×3 (05:42→21:38)
[2021-06-20] MEDS: NAPH,MB-DB/K PH,MBDB POWDER PACKET PO SCH ×3 (05:42→21:38)
[2021-06-20 07:33] LABS: HEMATOCRIT 38.4 % (35.4-49); HEMOGLOBIN 12.7 GM/dL (11.7-16.9); MCH 27.9 pg (25.7-33.7); MEAN CELL VOLUME 84.5 fl (80-96); MEAN PLT VOLUME 8.5 fl (7.5-11.1); PLATELET COUNT 175 10^3/uL (134-434); RBC 4.54 M/mm3 (4.00-5.60); RDW 15.7 % (11.9-15.9); WHITE BLOOD COUNT 5.4 K/mm3 (4.0-10.0)
[2021-06-20 07:59] LABS: CALCIUM 8.1 mg/dL (8.5-10.1)
[2021-06-20 08:00] LABS: BLOOD UREA NITROGEN 12.9 mg/dL (7-18)
[2021-06-20 08:03] LABS: CREATININE 0.9 mg/dL (0.55-1.3); PHOSPHOROUS 3.1 mg/dL (2.5-4.9)
[2021-06-20 08:04] LABS: BILIRUBIN,TOTAL 0.7 mg/dL (0.2-1); TOT PROT 6.8 g/dl (6.4-8.2)
[2021-06-20] MEDS: hydrALAZINE HCL 25 MG TABLET (FP) PO SCH ×2 (10:08→21:38)
[2021-06-20] MEDS: amLODIPine BESYLATE 10 MG TABLET (FP) PO SCH (10:08)
[2021-06-20] MEDS: MULTIVITAMINS (DAILY MVI) TABLET (FP) PO SCH (10:08)
[2021-06-20] MEDS: THIAMINE HCL 100 MG TABLET (FP) PO SCH (10:08)
[2021-06-20] MEDS: NICOTINE 14 MG/24 HOURS TOPICAL PATCH TD SCH (10:08)
[2021-06-20] MEDS: FAMOTIDINE 20 MG TABLET PO SCH ×2 (10:08→21:38)
[2021-06-21] MEDS: SODIUM CHLORIDE 1,000 ML IV SCH ×3 (01:30→11:18)
[2021-06-21] MEDS: NAPH,MB-DB/K PH,MBDB POWDER PACKET PO SCH ×3 (05:07→22:50)
[2021-06-21] MEDS: HEPARIN NA (PORCINE) 5,000 UNITS/ML 1ML VIAL SQ SCH ×3 (05:08→22:50)
[2021-06-21 09:17] LABS: HEMATOCRIT 39.5 % (35.4-49); HEMOGLOBIN 13.3 GM/dL (11.7-16.9); MCH 28.3 pg (25.7-33.7); MCHC 33.6 g/dl (32.0-35.9); MEAN CELL VOLUME 84.3 fl (80-96); MEAN PLT VOLUME 8.5 fl (7.5-11.1); PLATELET COUNT 191 10^3/uL (134-434); RBC 4.68 M/mm3 (4.00-5.60); RDW 16.4 % (11.9-15.9); WHITE BLOOD COUNT 5.9 K/mm3 (4.0-10.0)
[2021-06-21 09:33] LABS: CALCIUM 8.4 mg/dL (8.5-10.1)
[2021-06-21 09:34] LABS: ALBUMIN 3.5 g/dl (3.4-5.0); BLOOD UREA NITROGEN 14.1 mg/dL (7-18); MAGNESIUM 2.1 mg/dL (1.8-2.4)
[2021-06-21 09:37] LABS: CREATININE 0.9 mg/dL (0.55-1.3); PHOSPHOROUS 3.1 mg/dL (2.5-4.9)
[2021-06-21 09:38] LABS: BILIRUBIN,TOTAL 0.4 mg/dL (0.2-1); TOT PROT 7.8 g/dl (6.4-8.2)
[2021-06-21] MEDS: NICOTINE 14 MG/24 HOURS TOPICAL PATCH TD SCH (09:51)
[2021-06-21] MEDS: hydrALAZINE HCL 25 MG TABLET (FP) PO SCH ×2 (09:52→22:49)
[2021-06-21] MEDS: amLODIPine BESYLATE 10 MG TABLET (FP) PO SCH (09:52)
[2021-06-21] MEDS: MULTIVITAMINS (DAILY MVI) TABLET (FP) PO SCH (09:52)
[2021-06-21] MEDS: FAMOTIDINE 20 MG TABLET PO SCH ×2 (09:52→22:50)
[2021-06-21] MEDS: THIAMINE HCL 100 MG TABLET (FP) PO SCH (09:52)
[2021-06-22] MEDS: NAPH,MB-DB/K PH,MBDB POWDER PACKET PO SCH (05:07)
[2021-06-22] MEDS: HEPARIN NA (PORCINE) 5,000 UNITS/ML 1ML VIAL SQ SCH (05:07)
[2021-06-22] MEDS: THIAMINE HCL 100 MG TABLET (FP) PO SCH (09:52)
[2021-06-22] MEDS: MULTIVITAMINS (DAILY MVI) TABLET (FP) PO SCH (09:52)
[2021-06-22] MEDS: hydrALAZINE HCL 25 MG TABLET (FP) PO SCH (09:53)
[2021-06-22] MEDS: amLODIPine BESYLATE 10 MG TABLET (FP) PO SCH (09:53)
[2021-06-22] MEDS: NICOTINE 14 MG/24 HOURS TOPICAL PATCH TD SCH (09:53)
[2021-06-22] MEDS: FAMOTIDINE 20 MG TABLET PO SCH (09:53)
[2021-06-22 10:53] VITALS: BP 141/109; PULSE 88; TEMP 98.1
== END 2021-06-22 14:13 | disposition other institution (70) | DRG 198 ==
LOC: JER 13:49 → JERBED 18:07 → J4W 06-17 21:01
PROVIDERS: ADMIT Internal Medicine; ATTEND Internal Medicine
DX: I20.1 Angina pectoris with documented spasm (principal); E46 Unspecified protein-calorie malnutrition; M62.82 Rhabdomyolysis; F14.288 Cocaine dependence with other cocaine-induced disorder; F20.9 Schizophrenia, unspecified; F31.9 Bipolar disorder, unspecified; I16.9 Hypertensive crisis, unspecified; R74.01 Elevation of levels of liver transaminase levels; F17.210 Nicotine dependence, cigarettes, uncomplicated; R94.31 Abnormal electrocardiogram [ECG] [EKG]; F10.20 Alcohol dependence, uncomplicated; J44.9 Chronic obstructive pulmonary disease, unspecified; F12.10 Cannabis abuse, uncomplicated; M10.9 Gout, unspecified
CPT/HCPCS: 36415; 71045-TC-FY; 71250-TC; 80053; 80307; 81003; 82550; 82553; 83036; 83735; 83880; 84100; 84484; 85025; 85027; 85610; 85730; 87070; 87086; 87205; 93005; 93010; 93306-TC; 94761; 99285-25; C9803; U0003; U0005

== ENCOUNTER 2021-06-22 13:42 | Inpatient (IN) | payer OTHER ==
[2021-06-22] MEDS ORDERED: guaiFENesin 200 MG/10 ML 10 ML UNIT-DOSE CUPS PO PRN (13:53)
[2021-06-22] MEDS ORDERED: MAG HYDROX/AL HYDROX/SIMETH 30 ML UNIT-DOSE CUP PO PRN (13:53)
[2021-06-22] MEDS ORDERED: IBUPROFEN 400 MG TABLET (FP) PO PRN (13:53)
[2021-06-22] MEDS ORDERED: P-EPHED 60MG/TRIPROLIDI 2.5MG TABLET PO PRN (13:53)
[2021-06-22] MEDS ORDERED: MAGNESIUM HYDROX 2400MG/30ML ORAL SUSPENSION 30 ML CUP PO PRN (13:53)
[2021-06-22] MEDS ORDERED: NICOTINE 10 MG CARTRIDGE (INHALER) IH PRN (13:53)
[2021-06-22] MEDS ORDERED: MAGNESIUM CITRATE 300 ML BOTTLE PO PRN (13:53)
[2021-06-22] MEDS ORDERED: LOPERAMIDE HCL 2 MG CAPSULE PO PRN (13:53)
[2021-06-22] MEDS ORDERED: ACETAMINOPHEN 325 MG TABLET (FP) PO PRN (13:53)
[2021-06-22 14:09] VITALS: BMI 20.9
[2021-06-22] MEDS: PRENATAL VITAMINS W/ FOLIC ACID TABLET (FP) PO SCH (15:57)
[2021-06-22] MEDS: hydrOXYzine PAMOATE 25 MG CAPSULE (FP) PO SCH ×3 (15:58→21:34)
[2021-06-22] MEDS: MELATONIN 5 MG TABLETS PO SCH (21:34)
[2021-06-22] MEDS: THIAMINE HCL 100 MG TABLET (FP) PO SCH (21:34)
[2021-06-22] MEDS: hydrALAZINE HCL 25 MG TABLET (FP) PO SCH (21:34)
[2021-06-22] MEDS ORDERED: PT OWN MED DRAWER 7, Y5N ONE (21:45)
[2021-06-23] MEDS: hydrOXYzine PAMOATE 25 MG CAPSULE (FP) PO SCH ×2 (06:41→09:56)
[2021-06-23] MEDS ORDERED: PT OWN MED DRAWER 7, Y5N ONE ×2 (08:39→20:16)
[2021-06-23] MEDS: hydrALAZINE HCL 25 MG TABLET (FP) PO SCH ×2 (09:56→21:36)
[2021-06-23] MEDS: amLODIPine BESYLATE 10 MG TABLET (FP) PO SCH (09:56)
[2021-06-23] MEDS: PRENATAL VITAMINS W/ FOLIC ACID TABLET (FP) PO SCH (09:56)
[2021-06-23] MEDS: NICOTINE 14 MG/24 HOURS TOPICAL PATCH TD SCH (09:58)
[2021-06-23 11:52] LABS: SYPHILIS W/ RPR CONF NON-REACTIVE (NONREACTIVE)
[2021-06-23] MEDS ORDERED: hydrOXYzine PAMOATE 25 MG CAPSULE (FP) PO PRN (12:24)
[2021-06-23] MEDS: THIAMINE HCL 100 MG TABLET (FP) PO SCH (21:36)
[2021-06-23] MEDS: MELATONIN 5 MG TABLETS PO SCH (21:37)
[2021-06-23] MEDS: OLANZapine 5 MG TABLET PO SCH (21:38)
[2021-06-23] MEDS ORDERED: OLANZapine 5 MG TABLET ONE (21:38)
[2021-06-24] MEDS ORDERED: PT OWN MED DRAWER 7, Y5N ONE ×2 (08:40→20:42)
[2021-06-24] MEDS: hydrALAZINE HCL 25 MG TABLET (FP) PO SCH ×2 (10:01→21:28)
[2021-06-24] MEDS: amLODIPine BESYLATE 10 MG TABLET (FP) PO SCH (10:02)
[2021-06-24] MEDS: PRENATAL VITAMINS W/ FOLIC ACID TABLET (FP) PO SCH (10:02)
[2021-06-24] MEDS: NICOTINE 14 MG/24 HOURS TOPICAL PATCH TD SCH (10:02)
[2021-06-24 15:03] LABS: PH,URINE 6.5 (5.0-8.0); URINE APPEARANCE CLEAR; URINE BILIRUBIN NEGATIVE (NEGATIVE); URINE COLOR YELLOW; URINE GLUCOSE (UA) NEGATIVE (NEGATIVE); URINE KETONE NEGATIVE (NEGATIVE); URINE LEUK ESTERASE NEGATIVE (NEGATIVE); URINE NITRITE NEGATIVE (NEGATIVE); URINE PROTEIN NEGATIVE (NEGATIVE); URINE UROBILINOGEN 0.2 mg/dL (0.2-1.0)
[2021-06-24] MEDS: OLANZapine 5 MG TABLET PO SCH (21:28)
[2021-06-24] MEDS: MELATONIN 5 MG TABLETS PO SCH (21:28)
[2021-06-24] MEDS: THIAMINE HCL 100 MG TABLET (FP) PO SCH (21:28)
[2021-06-25] MEDS ORDERED: PT OWN MED DRAWER 7, Y5N ONE ×2 (08:53→19:14)
[2021-06-25] MEDS: amLODIPine BESYLATE 10 MG TABLET (FP) PO SCH (09:41)
[2021-06-25] MEDS: hydrALAZINE HCL 25 MG TABLET (FP) PO SCH ×2 (09:42→21:49)
[2021-06-25] MEDS: NICOTINE 14 MG/24 HOURS TOPICAL PATCH TD SCH (09:42)
[2021-06-25] MEDS: PRENATAL VITAMINS W/ FOLIC ACID TABLET (FP) PO SCH (09:42)
[2021-06-25] MEDS: MELATONIN 5 MG TABLETS PO SCH (21:49)
[2021-06-25] MEDS: OLANZapine 5 MG TABLET PO SCH (21:49)
[2021-06-25] MEDS: THIAMINE HCL 100 MG TABLET (FP) PO SCH (21:49)
[2021-06-26] MEDS: hydrALAZINE HCL 25 MG TABLET (FP) PO SCH ×2 (09:53→21:44)
[2021-06-26] MEDS: amLODIPine BESYLATE 10 MG TABLET (FP) PO SCH (09:53)
[2021-06-26] MEDS: NICOTINE 14 MG/24 HOURS TOPICAL PATCH TD SCH (09:54)
[2021-06-26] MEDS: PRENATAL VITAMINS W/ FOLIC ACID TABLET (FP) PO SCH (09:54)
[2021-06-26] MEDS ORDERED: PT OWN MED DRAWER 7, Y5N ONE (19:12)
[2021-06-26] MEDS: MELATONIN 5 MG TABLETS PO SCH (21:43)
[2021-06-26] MEDS: OLANZapine 5 MG TABLET PO SCH (21:44)
[2021-06-26] MEDS: THIAMINE HCL 100 MG TABLET (FP) PO SCH (21:44)
[2021-06-27 06:39] VITALS: TEMP 97.3
[2021-06-27 09:11] VITALS: BP 143/79; PULSE 98
[2021-06-27] MEDS: amLODIPine BESYLATE 10 MG TABLET (FP) PO SCH (09:43)
[2021-06-27] MEDS: hydrALAZINE HCL 25 MG TABLET (FP) PO SCH (09:43)
[2021-06-27] MEDS: PRENATAL VITAMINS W/ FOLIC ACID TABLET (FP) PO SCH (09:44)
[2021-06-27] MEDS: NICOTINE 14 MG/24 HOURS TOPICAL PATCH TD SCH (09:44)
== END 2021-06-27 15:39 | disposition home or self-care (01) | DRG 772 ==
LOC: YASAS 13:42 → Y3E 15:17
PROVIDERS: ADMIT Allergy & Immunology; ATTEND Allergy & Immunology
PROC: HZ42ZZZ Group Counseling for Substance Abuse Treatment, Cognitive-Behavioral (ICD-10-PCS; principal; 2021-06-22)
DX: F10.20 Alcohol dependence, uncomplicated (principal); F14.20 Cocaine dependence, uncomplicated; F12.20 Cannabis dependence, uncomplicated; F17.210 Nicotine dependence, cigarettes, uncomplicated; F19.24 Other psychoactive substance dependence with psychoactive substance-induced mood disorder; F25.9 Schizoaffective disorder, unspecified; F31.9 Bipolar disorder, unspecified; D64.9 Anemia, unspecified; I10 Essential (primary) hypertension; J43.9 Emphysema, unspecified; M17.0 Bilateral primary osteoarthritis of knee; M1A.49X0 Other secondary chronic gout, multiple sites, without tophus (tophi); Z62.810 Personal history of physical and sexual abuse in childhood; Z56.0 Unemployment, unspecified; Z91.51 Personal history of suicidal behavior
CPT/HCPCS: 36415; 81003; 86780; 86803; 87811; C9803; U0003; U0005

== ENCOUNTER 2021-08-23 09:41 | Inpatient (IN) | payer OTHER ==
[2021-08-23] MEDS ORDERED: ACETAMINOPHEN 325 MG TABLET (FP) PO PRN ×2 (10:06)
[2021-08-23] MEDS ORDERED: NICOTINE 10 MG CARTRIDGE (INHALER) IH PRN (10:06)
[2021-08-23] MEDS ORDERED: MENTHOL/PHENOL 1 EACH UD MM PRN (10:06)
[2021-08-23] MEDS ORDERED: MAG HYDROX/AL HYDROX/SIMETH 30 ML UNIT-DOSE CUP PO PRN (10:06)
[2021-08-23] MEDS ORDERED: IBUPROFEN 400 MG TABLET (FP) PO PRN (10:06)
[2021-08-23] MEDS ORDERED: MAGNESIUM HYDROX 2400MG/30ML ORAL SUSPENSION 30 ML CUP PO PRN (10:06)
[2021-08-23] MEDS ORDERED: BISMUTH SUBSALICYLATE 262 MG/15 ML BTL PO PRN (10:06)
[2021-08-23] MEDS ORDERED: chlordiazePOXIDE HCL 25 MG CAPSULE PO PRN (10:06)
[2021-08-23] MEDS ORDERED: ONDANSETRON *ODT* 4 MG TABLET SL PRN (10:06)
[2021-08-23] MEDS ORDERED: MAGNESIUM CITRATE 300 ML BOTTLE PO PRN (10:06)
[2021-08-23] MEDS ORDERED: cloNIDine HCL 0.1 MG TABLET PO STA (10:10)
[2021-08-23 10:11] VITALS: BMI 20.9
[2021-08-23] MEDS: NICOTINE 14 MG/24 HOURS TOPICAL PATCH TD SCH (11:40)
[2021-08-23] MEDS: PRENATAL VITAMINS W/ FOLIC ACID TABLET (FP) PO SCH (11:40)
[2021-08-23] MEDS: METHOCARBAMOL 500 MG TABLET PO PRN (11:41)
[2021-08-23] MEDS: hydrOXYzine PAMOATE 25 MG CAPSULE (FP) PO SCH ×3 (14:52→22:33)
[2021-08-23] MEDS: amLODIPine BESYLATE 10 MG TABLET (FP) PO SCH (14:52)
[2021-08-23] MEDS: hydrALAZINE HCL 25 MG TABLET (FP) PO SCH ×2 (15:04→22:32)
[2021-08-23 15:28] LABS: HEMATOCRIT 37.8 % (35.4-49); HEMOGLOBIN 12.2 GM/dL (11.7-16.9); MCH 27.1 pg (25.7-33.7); MCHC 32.4 g/dl (32.0-35.9); MEAN CELL VOLUME 83.7 fl (80-96); MEAN PLT VOLUME 8.3 fl (7.5-11.1); PLATELET COUNT 196 10^3/uL (134-434); RBC 4.51 M/mm3 (4.00-5.60); RDW 15.8 % (11.9-15.9); WHITE BLOOD COUNT 3.7 K/mm3 (4.0-10.0)
[2021-08-23 15:45] LABS: ALBUMIN 3.6 g/dl (3.4-5.0); BLOOD UREA NITROGEN 10.5 mg/dL (7-18); CALCIUM 8.9 mg/dL (8.5-10.1)
[2021-08-23 15:47] LABS: CREATININE 1.1 mg/dL (0.55-1.3)
[2021-08-23 15:49] LABS: BILIRUBIN,TOTAL 0.4 mg/dL (0.2-1); TOT PROT 7.4 g/dl (6.4-8.2)
[2021-08-23] MEDS: chlordiazePOXIDE HCL 25 MG CAPSULE PO SCH ×2 (17:47→22:32)
[2021-08-23] MEDS: MELATONIN 5 MG TABLETS PO SCH (22:33)
[2021-08-23] MEDS: THIAMINE HCL 100 MG TABLET (FP) PO SCH (22:34)
[2021-08-24] MEDS: hydrOXYzine PAMOATE 25 MG CAPSULE (FP) PO SCH ×5 (05:47→22:53)
[2021-08-24] MEDS: chlordiazePOXIDE HCL 25 MG CAPSULE PO SCH ×4 (05:47→22:54)
[2021-08-24] MEDS: hydrALAZINE HCL 25 MG TABLET (FP) PO SCH ×2 (10:30→22:53)
[2021-08-24] MEDS: amLODIPine BESYLATE 10 MG TABLET (FP) PO SCH (10:30)
[2021-08-24] MEDS: PRENATAL VITAMINS W/ FOLIC ACID TABLET (FP) PO SCH (10:30)
[2021-08-24] MEDS: NICOTINE 14 MG/24 HOURS TOPICAL PATCH TD SCH (10:33)
[2021-08-24 16:00] LABS: HIV INTERPRETATION NEGATIVE (NEGATIVE)
[2021-08-24] MEDS: MELATONIN 5 MG TABLETS PO SCH (22:53)
[2021-08-24] MEDS: METHOCARBAMOL 500 MG TABLET PO PRN (22:53)
[2021-08-24] MEDS: THIAMINE HCL 100 MG TABLET (FP) PO SCH (22:53)
[2021-08-25] MEDS: hydrOXYzine PAMOATE 25 MG CAPSULE (FP) PO SCH ×5 (06:06→22:43)
[2021-08-25] MEDS: chlordiazePOXIDE HCL 25 MG CAPSULE PO SCH ×4 (06:06→22:43)
[2021-08-25] MEDS: amLODIPine BESYLATE 10 MG TABLET (FP) PO SCH (10:11)
[2021-08-25] MEDS: hydrALAZINE HCL 25 MG TABLET (FP) PO SCH ×2 (10:11→22:43)
[2021-08-25] MEDS: PRENATAL VITAMINS W/ FOLIC ACID TABLET (FP) PO SCH (10:11)
[2021-08-25] MEDS: NICOTINE 14 MG/24 HOURS TOPICAL PATCH TD SCH (10:11)
[2021-08-25] MEDS: THIAMINE HCL 100 MG TABLET (FP) PO SCH (22:43)
[2021-08-25] MEDS: MELATONIN 5 MG TABLETS PO SCH (22:43)
[2021-08-26] MEDS ORDERED: chlordiazePOXIDE HCL 10 MG CAPSULE PO PRN
[2021-08-26] MEDS: chlordiazePOXIDE HCL 10 MG CAPSULE PO SCH ×4 (06:22→22:36)
[2021-08-26] MEDS: hydrOXYzine PAMOATE 25 MG CAPSULE (FP) PO SCH ×5 (06:22→22:35)
[2021-08-26] MEDS: amLODIPine BESYLATE 10 MG TABLET (FP) PO SCH (10:24)
[2021-08-26] MEDS: hydrALAZINE HCL 25 MG TABLET (FP) PO SCH ×2 (10:24→22:35)
[2021-08-26] MEDS: PRENATAL VITAMINS W/ FOLIC ACID TABLET (FP) PO SCH (10:25)
[2021-08-26] MEDS: NICOTINE 14 MG/24 HOURS TOPICAL PATCH TD SCH (10:25)
[2021-08-26] MEDS: THIAMINE HCL 100 MG TABLET (FP) PO SCH (22:35)
[2021-08-26] MEDS: MELATONIN 5 MG TABLETS PO SCH (22:36)
[2021-08-27] MEDS ORDERED: chlordiazePOXIDE HCL 10 MG CAPSULE PO SCH (05:00)
[2021-08-27] MEDS: hydrOXYzine PAMOATE 25 MG CAPSULE (FP) PO SCH (06:15)
[2021-08-27 06:28] VITALS: BP 150/94; PULSE 85; TEMP 97.2
[2021-08-28] MEDS ORDERED: chlordiazePOXIDE HCL 10 MG CAPSULE PO ONE (05:00)
== END 2021-08-27 09:41 | disposition home or self-care (01) | DRG 774 ==
LOC: YASAS 09:41 → Y3N 10:08
PROVIDERS: ADMIT Allergy & Immunology; ATTEND Allergy & Immunology
PROC: HZ2ZZZZ Detoxification Services for Substance Abuse Treatment (ICD-10-PCS; principal; 2021-08-23)
DX: F10.230 Alcohol dependence with withdrawal, uncomplicated (principal); F14.20 Cocaine dependence, uncomplicated; F12.20 Cannabis dependence, uncomplicated; F17.210 Nicotine dependence, cigarettes, uncomplicated; F20.0 Paranoid schizophrenia; F31.9 Bipolar disorder, unspecified; E78.00 Pure hypercholesterolemia, unspecified; I10 Essential (primary) hypertension; Z87.39 Personal history of other diseases of the musculoskeletal system and connective tissue
CPT/HCPCS: 36415; 71046-TC-FY; 80053; 85027; 86780; 87389; C9803; J0735; U0003; U0005

== ENCOUNTER 2021-10-31 10:59 | Inpatient (IN) | payer OTHER ==
[2021-10-31] MEDS ORDERED: LOPERAMIDE HCL 2 MG CAPSULE PO PRN (11:41)
[2021-10-31] MEDS ORDERED: NICOTINE 10 MG CARTRIDGE (INHALER) IH PRN (11:41)
[2021-10-31] MEDS ORDERED: chlordiazePOXIDE HCL 25 MG CAPSULE PO PRN (11:41)
[2021-10-31] MEDS ORDERED: MAG HYDROX/AL HYDROX/SIMETH 30 ML UNIT-DOSE CUP PO PRN (11:41)
[2021-10-31] MEDS ORDERED: ACETAMINOPHEN 325 MG TABLET (FP) PO PRN ×2 (11:41)
[2021-10-31] MEDS ORDERED: MAGNESIUM HYDROX 2400MG/30ML ORAL SUSPENSION 30 ML CUP PO PRN (11:41)
[2021-10-31] MEDS ORDERED: BISMUTH SUBSALICYLATE 524 MG/30 ML PO PRN (11:41)
[2021-10-31] MEDS ORDERED: MENTHOL/PHENOL 1 EACH UD MM PRN (11:41)
[2021-10-31] MEDS ORDERED: MAGNESIUM CITRATE 300 ML BOTTLE PO PRN (11:41)
[2021-10-31] MEDS ORDERED: ONDANSETRON *ODT* 4 MG TABLET SL PRN (11:41)
[2021-10-31 11:59] VITALS: BMI 22.1
[2021-10-31] MEDS: cloNIDine HCL 0.1 MG TABLET PO PRN (12:41)
[2021-10-31 13:09] LABS: HEMATOCRIT 40.7 % (35.4-49); HEMOGLOBIN 13.4 GM/dL (11.7-16.9); MCH 27.1 pg (25.7-33.7); MCHC 32.9 g/dl (32.0-35.9); MEAN CELL VOLUME 82.4 fl (80-96); MEAN PLT VOLUME 8.1 fl (7.5-11.1); PLATELET COUNT 212 10^3/uL (134-434); RBC 4.94 M/mm3 (4.00-5.60); RDW 15.4 % (11.9-15.9); WHITE BLOOD COUNT 5.7 K/mm3 (4.0-10.0)
[2021-10-31] MEDS: PRENATAL VITAMINS W/ FOLIC ACID TABLET (FP) PO SCH (13:21)
[2021-10-31] MEDS: NICOTINE 14 MG/24 HOURS TOPICAL PATCH TD SCH (13:22)
[2021-10-31] MEDS: amLODIPine BESYLATE 10 MG TABLET (FP) PO SCH (13:22)
[2021-10-31] MEDS: chlordiazePOXIDE HCL 25 MG CAPSULE PO SCH ×3 (13:22→22:22)
[2021-10-31] MEDS: IBUPROFEN 400 MG TABLET (FP) PO PRN (13:23)
[2021-10-31] MEDS: hydrALAZINE HCL 25 MG TABLET (FP) PO SCH ×2 (13:31→22:22)
[2021-10-31 14:01] LABS: CALCIUM 8.9 mg/dL (8.5-10.1)
[2021-10-31 14:02] LABS: ALBUMIN 3.8 g/dl (3.4-5.0); BLOOD UREA NITROGEN 14.4 mg/dL (7-18)
[2021-10-31 14:05] LABS: CREATININE 1.1 mg/dL (0.55-1.3)
[2021-10-31 14:06] LABS: TOT PROT 8.1 g/dl (6.4-8.2)
[2021-10-31 14:07] LABS: BILIRUBIN,TOTAL 0.5 mg/dL (0.2-1)
[2021-10-31] MEDS: hydrOXYzine PAMOATE 25 MG CAPSULE (FP) PO SCH ×3 (14:37→22:23)
[2021-10-31] MEDS: THIAMINE HCL 100 MG TABLET (FP) PO SCH (22:21)
[2021-10-31] MEDS: MELATONIN 5 MG TABLETS PO SCH (22:26)
[2021-10-31] MEDS: OLANZapine 2.5 MG TABLET PO SCH (22:57)
[2021-11-01] MEDS: hydrOXYzine PAMOATE 25 MG CAPSULE (FP) PO SCH ×5 (05:25→22:45)
[2021-11-01] MEDS: chlordiazePOXIDE HCL 25 MG CAPSULE PO SCH ×4 (05:25→22:46)
[2021-11-01] MEDS: PRENATAL VITAMINS W/ FOLIC ACID TABLET (FP) PO SCH (10:31)
[2021-11-01] MEDS: hydrALAZINE HCL 25 MG TABLET (FP) PO SCH ×2 (10:32→22:46)
[2021-11-01] MEDS: amLODIPine BESYLATE 10 MG TABLET (FP) PO SCH (10:32)
[2021-11-01] MEDS: METHOCARBAMOL 500 MG TABLET PO PRN (10:32)
[2021-11-01] MEDS: NICOTINE 14 MG/24 HOURS TOPICAL PATCH TD SCH (10:35)
[2021-11-01] MEDS: THIAMINE HCL 100 MG TABLET (FP) PO SCH (22:45)
[2021-11-01] MEDS: MELATONIN 5 MG TABLETS PO SCH (22:45)
[2021-11-01] MEDS: OLANZapine 2.5 MG TABLET PO SCH (22:45)
[2021-11-02] MEDS: chlordiazePOXIDE HCL 25 MG CAPSULE PO SCH ×4 (06:30→22:59)
[2021-11-02] MEDS: hydrOXYzine PAMOATE 25 MG CAPSULE (FP) PO SCH ×5 (06:30→22:58)
[2021-11-02 11:02] LABS: SGOT/AST 67 U/L (15-37); SGPT/ALT 50 U/L (13-61)
[2021-11-02] MEDS: PRENATAL VITAMINS W/ FOLIC ACID TABLET (FP) PO SCH (11:13)
[2021-11-02] MEDS: hydrALAZINE HCL 25 MG TABLET (FP) PO SCH ×2 (11:13→22:56)
[2021-11-02] MEDS: amLODIPine BESYLATE 10 MG TABLET (FP) PO SCH (11:14)
[2021-11-02] MEDS: NICOTINE 14 MG/24 HOURS TOPICAL PATCH TD SCH (11:16)
[2021-11-02] MEDS: cloNIDine HCL 0.1 MG TABLET PO PRN (18:00)
[2021-11-02] MEDS: THIAMINE HCL 100 MG TABLET (FP) PO SCH (22:56)
[2021-11-02] MEDS: OLANZapine 2.5 MG TABLET PO SCH (22:58)
[2021-11-02] MEDS: MELATONIN 5 MG TABLETS PO SCH (22:59)
[2021-11-03] MEDS ORDERED: chlordiazePOXIDE HCL 10 MG CAPSULE PO PRN
[2021-11-03] MEDS: hydrOXYzine PAMOATE 25 MG CAPSULE (FP) PO SCH ×5 (05:24→22:35)
[2021-11-03] MEDS: chlordiazePOXIDE HCL 10 MG CAPSULE PO SCH ×4 (05:24→22:36)
[2021-11-03] MEDS: amLODIPine BESYLATE 10 MG TABLET (FP) PO SCH (10:31)
[2021-11-03] MEDS: NICOTINE 14 MG/24 HOURS TOPICAL PATCH TD SCH (10:31)
[2021-11-03] MEDS: hydrALAZINE HCL 25 MG TABLET (FP) PO SCH ×2 (10:31→22:18)
[2021-11-03] MEDS: PRENATAL VITAMINS W/ FOLIC ACID TABLET (FP) PO SCH (10:31)
[2021-11-03] MEDS: METHOCARBAMOL 500 MG TABLET PO PRN ×2 (10:31→16:46)
[2021-11-03] MEDS: IBUPROFEN 400 MG TABLET (FP) PO PRN (16:46)
[2021-11-03] MEDS: MELATONIN 5 MG TABLETS PO SCH (22:35)
[2021-11-03] MEDS: THIAMINE HCL 100 MG TABLET (FP) PO SCH (22:36)
[2021-11-03] MEDS: OLANZapine 2.5 MG TABLET PO SCH (22:36)
[2021-11-04] MEDS: chlordiazePOXIDE HCL 10 MG CAPSULE PO SCH ×2 (07:44→18:45)
[2021-11-04] MEDS: hydrOXYzine PAMOATE 25 MG CAPSULE (FP) PO SCH ×5 (07:44→23:05)
[2021-11-04] MEDS: amLODIPine BESYLATE 10 MG TABLET (FP) PO SCH (12:14)
[2021-11-04] MEDS: PRENATAL VITAMINS W/ FOLIC ACID TABLET (FP) PO SCH (12:15)
[2021-11-04] MEDS: NICOTINE 14 MG/24 HOURS TOPICAL PATCH TD SCH (12:15)
[2021-11-04] MEDS: hydrALAZINE HCL 25 MG TABLET (FP) PO SCH ×2 (12:15→23:05)
[2021-11-04] MEDS: MELATONIN 5 MG TABLETS PO SCH (23:05)
[2021-11-04] MEDS: THIAMINE HCL 100 MG TABLET (FP) PO SCH (23:06)
[2021-11-04] MEDS: OLANZapine 2.5 MG TABLET PO SCH (23:06)
[2021-11-05] MEDS ORDERED: chlordiazePOXIDE HCL 10 MG CAPSULE PO ONE (05:00)
[2021-11-05] MEDS: hydrOXYzine PAMOATE 25 MG CAPSULE (FP) PO SCH ×2 (05:35→09:44)
[2021-11-05 09:25] VITALS: BP 142/78; PULSE 88; TEMP 97.8
[2021-11-05] MEDS: hydrALAZINE HCL 25 MG TABLET (FP) PO SCH (09:42)
[2021-11-05] MEDS: amLODIPine BESYLATE 10 MG TABLET (FP) PO SCH (09:42)
[2021-11-05] MEDS: PRENATAL VITAMINS W/ FOLIC ACID TABLET (FP) PO SCH (09:44)
[2021-11-05] MEDS: NICOTINE 14 MG/24 HOURS TOPICAL PATCH TD SCH (09:44)
== END 2021-11-05 10:00 | disposition home or self-care (01) | DRG 774 ==
LOC: YASAS 10:59 → Y6N 12:29
PROVIDERS: ADMIT Allergy & Immunology; ATTEND Allergy & Immunology
PROC: HZ2ZZZZ Detoxification Services for Substance Abuse Treatment (ICD-10-PCS; principal; 2021-10-31)
DX: F10.230 Alcohol dependence with withdrawal, uncomplicated (principal); F14.20 Cocaine dependence, uncomplicated; F12.20 Cannabis dependence, uncomplicated; F17.210 Nicotine dependence, cigarettes, uncomplicated; F25.9 Schizoaffective disorder, unspecified; F31.9 Bipolar disorder, unspecified; F19.282 Other psychoactive substance dependence with psychoactive substance-induced sleep disorder; F19.24 Other psychoactive substance dependence with psychoactive substance-induced mood disorder; I10 Essential (primary) hypertension; J44.9 Chronic obstructive pulmonary disease, unspecified; M1A.49X0 Other secondary chronic gout, multiple sites, without tophus (tophi); M17.0 Bilateral primary osteoarthritis of knee; Z62.810 Personal history of physical and sexual abuse in childhood; Z86.2 Personal history of diseases of the blood and blood-forming organs and certain disorders involving the immune mechanism; Z99.89 Dependence on other enabling machines and devices; Z91.19 Patient's noncompliance with other medical treatment and regimen
CPT/HCPCS: 36415; 80053; 84450; 84460; 85027; 86780; 87811; C9803-CS; J0735; U0003; U0005

== ENCOUNTER 2021-12-12 09:27 | Inpatient (IN) | payer OTHER ==
[2021-12-12] MEDS ORDERED: LOPERAMIDE HCL 2 MG CAPSULE PO PRN (09:54)
[2021-12-12] MEDS ORDERED: BISMUTH SUBSALICYLATE 524 MG/30 ML PO PRN (09:54)
[2021-12-12] MEDS ORDERED: chlordiazePOXIDE HCL 25 MG CAPSULE PO PRN (09:54)
[2021-12-12] MEDS ORDERED: ONDANSETRON *ODT* 4 MG TABLET SL PRN (09:54)
[2021-12-12] MEDS ORDERED: DICYCLOMINE HCL 10 MG CAPSULE PO PRN (09:54)
[2021-12-12] MEDS ORDERED: MAGNESIUM CITRATE 300 ML BOTTLE PO PRN (09:54)
[2021-12-12] MEDS ORDERED: ACETAMINOPHEN 325 MG TABLET (FP) PO PRN ×2 (09:54)
[2021-12-12] MEDS ORDERED: NICOTINE 10 MG CARTRIDGE (INHALER) IH PRN (09:54)
[2021-12-12] MEDS ORDERED: MAGNESIUM HYDROX 2400MG/30ML ORAL SUSPENSION 30 ML CUP PO PRN (09:54)
[2021-12-12] MEDS ORDERED: MAG HYDROX/AL HYDROX/SIMETH 30 ML UNIT-DOSE CUP PO PRN (09:54)
[2021-12-12 10:22] VITALS: BMI 23.2
[2021-12-12] MEDS ORDERED: IBUPROFEN 400 MG TABLET (FP) PO PRN ×2 (10:25→13:57)
[2021-12-12] MEDS: hydrALAZINE HCL 25 MG TABLET (FP) PO SCH ×2 (11:26→23:33)
[2021-12-12] MEDS: NICOTINE 14 MG/24 HOURS TOPICAL PATCH TD SCH (11:30)
[2021-12-12] MEDS: hydrOXYzine PAMOATE 25 MG CAPSULE (FP) PO SCH ×4 (11:30→22:59)
[2021-12-12] MEDS: METHOCARBAMOL 500 MG TABLET PO PRN (11:30)
[2021-12-12] MEDS: amLODIPine BESYLATE 10 MG TABLET (FP) PO SCH (11:30)
[2021-12-12] MEDS: PRENATAL VITAMINS W/ FOLIC ACID TABLET (FP) PO SCH (11:31)
[2021-12-12] MEDS: chlordiazePOXIDE HCL 25 MG CAPSULE PO SCH ×3 (11:31→22:58)
[2021-12-12 18:59] LABS: HEMATOCRIT 40.2 % (35.4-49); MCH 26.5 pg (25.7-33.7); MCHC 32.2 g/dl (32.0-35.9); MEAN CELL VOLUME 82.3 fl (80-96); MEAN PLT VOLUME 8.2 fl (7.5-11.1); PLATELET COUNT 340 10^3/uL (134-434); RBC 4.89 M/mm3 (4.00-5.60); RDW 16.3 % (11.9-15.9); WHITE BLOOD COUNT 8.3 K/mm3 (4.0-10.0)
[2021-12-12 19:14] LABS: ALBUMIN 4.2 g/dl (3.4-5.0)
[2021-12-12 19:17] LABS: CREATININE 1.3 mg/dL (0.55-1.3)
[2021-12-12 19:18] LABS: BILIRUBIN,TOTAL 0.6 mg/dL (0.2-1); TOT PROT 8.9 g/dl (6.4-8.2)
[2021-12-12] MEDS: IBUPROFEN 400 MG TABLET (FP) PO PRN (20:54)
[2021-12-12] MEDS: MELATONIN 5 MG TABLETS PO SCH (22:59)
[2021-12-12] MEDS: THIAMINE HCL 100 MG TABLET (FP) PO SCH (22:59)
[2021-12-12] MEDS: OLANZapine 10 MG TABLET PO SCH (23:34)
[2021-12-13] MEDS: chlordiazePOXIDE HCL 25 MG CAPSULE PO SCH ×2 (05:34→11:18)
[2021-12-13] MEDS: hydrOXYzine PAMOATE 25 MG CAPSULE (FP) PO SCH ×5 (05:35→23:13)
[2021-12-13] MEDS: BENZOCAINE/MENTHOL (CHLORASEPTIC ) LOZENGE MM PRN ×2 (06:04→18:02)
[2021-12-13] MEDS ORDERED: LORazepam 1 MG TABLET PO PRN (11:01)
[2021-12-13] MEDS: hydrALAZINE HCL 25 MG TABLET (FP) PO SCH ×2 (11:35→23:12)
[2021-12-13] MEDS: METHOCARBAMOL 500 MG TABLET PO PRN (11:35)
[2021-12-13] MEDS: HYDROCHLOROTHIAZIDE 25 MG TABLET (FP) PO SCH (11:35)
[2021-12-13] MEDS: PRENATAL VITAMINS W/ FOLIC ACID TABLET (FP) PO SCH (11:36)
[2021-12-13] MEDS: amLODIPine BESYLATE 10 MG TABLET (FP) PO SCH (11:36)
[2021-12-13] MEDS: LORazepam 2 MG TABLET PO SCH ×3 (11:36→23:13)
[2021-12-13] MEDS: NICOTINE 14 MG/24 HOURS TOPICAL PATCH TD SCH (11:42)
[2021-12-13] MEDS: ALLOPURINOL 100 MG TABLET (FP) PO SCH (13:36)
[2021-12-13] MEDS: IBUPROFEN 400 MG TABLET (FP) PO PRN (17:58)
[2021-12-13] MEDS: THIAMINE HCL 100 MG TABLET (FP) PO SCH (23:12)
[2021-12-13] MEDS: MELATONIN 5 MG TABLETS PO SCH (23:12)
[2021-12-13] MEDS: OLANZapine 10 MG TABLET PO SCH (23:13)
[2021-12-14] MEDS ORDERED: chlordiazePOXIDE HCL 25 MG CAPSULE PO SCH (05:00)
[2021-12-14] MEDS: LORazepam 2 MG TABLET PO SCH ×4 (06:31→22:59)
[2021-12-14] MEDS: hydrOXYzine PAMOATE 25 MG CAPSULE (FP) PO SCH ×5 (06:31→22:57)
[2021-12-14] MEDS: HYDROCHLOROTHIAZIDE 25 MG TABLET (FP) PO SCH (11:02)
[2021-12-14] MEDS: ALLOPURINOL 100 MG TABLET (FP) PO SCH (11:02)
[2021-12-14] MEDS: amLODIPine BESYLATE 10 MG TABLET (FP) PO SCH (11:02)
[2021-12-14] MEDS: NICOTINE 14 MG/24 HOURS TOPICAL PATCH TD SCH (11:03)
[2021-12-14] MEDS: PRENATAL VITAMINS W/ FOLIC ACID TABLET (FP) PO SCH (11:03)
[2021-12-14] MEDS: IBUPROFEN 400 MG TABLET (FP) PO PRN (11:06)
[2021-12-14] MEDS: METHOCARBAMOL 500 MG TABLET PO PRN (11:07)
[2021-12-14] MEDS: hydrALAZINE HCL 25 MG TABLET (FP) PO SCH ×2 (12:15→22:59)
[2021-12-14 14:08] LABS: SARS-CoV-2 NAA Not Detected (Not Detected)
[2021-12-14] MEDS: MELATONIN 5 MG TABLETS PO SCH (22:57)
[2021-12-14] MEDS: THIAMINE HCL 100 MG TABLET (FP) PO SCH (22:59)
[2021-12-14] MEDS: OLANZapine 10 MG TABLET PO SCH (23:00)
[2021-12-15] MEDS ORDERED: chlordiazePOXIDE HCL 10 MG CAPSULE PO PRN
[2021-12-15] MEDS ORDERED: chlordiazePOXIDE HCL 10 MG CAPSULE PO SCH (05:00)
[2021-12-15] MEDS: hydrOXYzine PAMOATE 25 MG CAPSULE (FP) PO SCH ×6 (06:14→22:49)
[2021-12-15] MEDS: LORazepam 1 MG TABLET PO SCH ×6 (06:14→23:04)
[2021-12-15] MEDS: amLODIPine BESYLATE 10 MG TABLET (FP) PO SCH (11:13)
[2021-12-15] MEDS: ALLOPURINOL 100 MG TABLET (FP) PO SCH (11:13)
[2021-12-15] MEDS: hydrALAZINE HCL 25 MG TABLET (FP) PO SCH ×2 (11:13→22:49)
[2021-12-15] MEDS: PRENATAL VITAMINS W/ FOLIC ACID TABLET (FP) PO SCH (11:13)
[2021-12-15] MEDS: HYDROCHLOROTHIAZIDE 25 MG TABLET (FP) PO SCH (11:13)
[2021-12-15] MEDS: NICOTINE 14 MG/24 HOURS TOPICAL PATCH TD SCH (11:14)
[2021-12-15 14:12] LABS: CALCIUM 9.3 mg/dL (8.5-10.1)
[2021-12-15 14:15] LABS: CREATININE 1.1 mg/dL (0.55-1.3)
[2021-12-15 14:17] LABS: BILIRUBIN,TOTAL 0.2 mg/dL (0.2-1); TOT PROT 7.1 g/dl (6.4-8.2)
[2021-12-15 14:22] LABS: ALBUMIN 3.2 g/dl (3.4-5.0)
[2021-12-15] MEDS ORDERED: cloNIDine HCL 0.1 MG TABLET PO ONE (14:45)
[2021-12-15] MEDS: THIAMINE HCL 100 MG TABLET (FP) PO SCH (22:49)
[2021-12-15] MEDS: MELATONIN 5 MG TABLETS PO SCH (22:50)
[2021-12-15] MEDS: OLANZapine 10 MG TABLET PO SCH (23:04)
[2021-12-16] MEDS ORDERED: LORazepam 0.5 MG TABLET PO PRN
[2021-12-16] MEDS ORDERED: chlordiazePOXIDE HCL 10 MG CAPSULE PO SCH (05:00)
[2021-12-16] MEDS: hydrOXYzine PAMOATE 25 MG CAPSULE (FP) PO SCH ×2 (05:52→10:07)
[2021-12-16] MEDS: LORazepam 0.5 MG TABLET PO SCH ×2 (05:52→10:06)
[2021-12-16 09:37] VITALS: BP 132/108; PULSE 94; TEMP 96.9
[2021-12-16] MEDS: HYDROCHLOROTHIAZIDE 25 MG TABLET (FP) PO SCH (10:06)
[2021-12-16] MEDS: PRENATAL VITAMINS W/ FOLIC ACID TABLET (FP) PO SCH (10:06)
[2021-12-16] MEDS: hydrALAZINE HCL 25 MG TABLET (FP) PO SCH (10:07)
[2021-12-16] MEDS: ALLOPURINOL 100 MG TABLET (FP) PO SCH (10:07)
[2021-12-16] MEDS: NICOTINE 14 MG/24 HOURS TOPICAL PATCH TD SCH (10:07)
[2021-12-16] MEDS: amLODIPine BESYLATE 10 MG TABLET (FP) PO SCH (10:07)
[2021-12-17] MEDS ORDERED: LORazepam 0.5 MG TABLET PO ONE (05:00)
[2021-12-17] MEDS ORDERED: chlordiazePOXIDE HCL 10 MG CAPSULE PO ONE (05:00)
== END 2021-12-16 11:56 | disposition other institution (70) | DRG 774 ==
LOC: YASAS 09:27 → Y6N 10:39
PROVIDERS: ADMIT Allergy & Immunology; ATTEND Surgery
PROC: HZ2ZZZZ Detoxification Services for Substance Abuse Treatment (ICD-10-PCS; principal; 2021-12-12)
DX: F10.230 Alcohol dependence with withdrawal, uncomplicated (principal); F14.20 Cocaine dependence, uncomplicated; F12.20 Cannabis dependence, uncomplicated; F17.210 Nicotine dependence, cigarettes, uncomplicated; F19.282 Other psychoactive substance dependence with psychoactive substance-induced sleep disorder; F20.9 Schizophrenia, unspecified; F31.9 Bipolar disorder, unspecified; E78.5 Hyperlipidemia, unspecified; I10 Essential (primary) hypertension; J44.9 Chronic obstructive pulmonary disease, unspecified; M17.0 Bilateral primary osteoarthritis of knee; M10.9 Gout, unspecified; R74.01 Elevation of levels of liver transaminase levels; R76.11 Nonspecific reaction to tuberculin skin test without active tuberculosis; Z62.810 Personal history of physical and sexual abuse in childhood; Z99.89 Dependence on other enabling machines and devices
CPT/HCPCS: 36415; 80053; 82962; 85027; 86780; 87811; C9803-CS; J0735; U0003; U0005

== ENCOUNTER 2021-12-16 12:22 | Inpatient (IN) | payer OTHER ==
[2021-12-16] MEDS ORDERED: BENZOCAINE/MENTHOL (CHLORASEPTIC ) LOZENGE MM PRN (15:07)
[2021-12-16] MEDS ORDERED: MAG HYDROX/AL HYDROX/SIMETH 30 ML UNIT-DOSE CUP PO PRN (15:07)
[2021-12-16] MEDS ORDERED: MAGNESIUM CITRATE 300 ML BOTTLE PO PRN (15:07)
[2021-12-16] MEDS ORDERED: MAGNESIUM HYDROX 2400MG/30ML ORAL SUSPENSION 30 ML CUP PO PRN (15:07)
[2021-12-16] MEDS ORDERED: ACETAMINOPHEN 325 MG TABLET (FP) PO PRN (15:07)
[2021-12-16] MEDS ORDERED: LOPERAMIDE HCL 2 MG CAPSULE PO PRN (15:07)
[2021-12-16] MEDS ORDERED: NICOTINE 10 MG CARTRIDGE (INHALER) IH PRN (15:07)
[2021-12-16] MEDS ORDERED: P-EPHED 60MG/TRIPROLIDI 2.5MG TABLET PO PRN (15:07)
[2021-12-16] MEDS: hydrOXYzine PAMOATE 25 MG CAPSULE (FP) PO PRN (21:27)
[2021-12-16] MEDS: MELATONIN 5 MG TABLETS PO SCH (21:27)
[2021-12-16] MEDS: THIAMINE HCL 100 MG TABLET (FP) PO SCH (21:27)
[2021-12-16] MEDS: OLANZapine 10 MG TABLET PO SCH (21:27)
[2021-12-17] MEDS: PRENATAL VITAMINS W/ FOLIC ACID TABLET (FP) PO SCH (10:26)
[2021-12-17] MEDS: amLODIPine BESYLATE 10 MG TABLET (FP) PO SCH (10:26)
[2021-12-17] MEDS: hydrALAZINE HCL 25 MG TABLET (FP) PO SCH (10:26)
[2021-12-17] MEDS: NICOTINE 14 MG/24 HOURS TOPICAL PATCH TD SCH (10:26)
[2021-12-17] MEDS: ALLOPURINOL 100 MG TABLET (FP) PO SCH (10:26)
[2021-12-17] MEDS: HYDROCHLOROTHIAZIDE 25 MG TABLET (FP) PO SCH (10:26)
[2021-12-17] MEDS: IBUPROFEN 400 MG TABLET (FP) PO PRN (10:28)
[2021-12-17] MEDS: guaiFENesin 200 MG/10 ML 10 ML UNIT-DOSE CUPS PO PRN (10:28)
[2021-12-17] MEDS ORDERED: FLU VACC QS2021-22(6MOS UP)/PF 60 MCG/0.5 ML SYRINGE IM ONE (12:00)
[2021-12-17] MEDS: METHYL SALICYLATE/MENTHOL OINT 30 GM TUBE TP SCH ×2 (14:10→21:12)
[2021-12-17] MEDS: OLANZapine 10 MG TABLET PO SCH (21:12)
[2021-12-17] MEDS: MELATONIN 5 MG TABLETS PO SCH (21:12)
[2021-12-17] MEDS: THIAMINE HCL 100 MG TABLET (FP) PO SCH (21:12)
[2021-12-18] MEDS: IBUPROFEN 400 MG TABLET (FP) PO PRN ×2 (06:21→19:36)
[2021-12-18] MEDS: amLODIPine BESYLATE 10 MG TABLET (FP) PO SCH (10:20)
[2021-12-18] MEDS: hydrALAZINE HCL 25 MG TABLET (FP) PO SCH (10:20)
[2021-12-18] MEDS: ALLOPURINOL 100 MG TABLET (FP) PO SCH (10:20)
[2021-12-18] MEDS: PRENATAL VITAMINS W/ FOLIC ACID TABLET (FP) PO SCH (10:20)
[2021-12-18] MEDS: HYDROCHLOROTHIAZIDE 25 MG TABLET (FP) PO SCH (10:20)
[2021-12-18] MEDS: METHYL SALICYLATE/MENTHOL OINT 30 GM TUBE TP SCH ×2 (10:21→21:26)
[2021-12-18] MEDS: NICOTINE 14 MG/24 HOURS TOPICAL PATCH TD SCH (10:21)
[2021-12-18] MEDS: guaiFENesin 200 MG/10 ML 10 ML UNIT-DOSE CUPS PO PRN (19:36)
[2021-12-18] MEDS: MELATONIN 5 MG TABLETS PO SCH (21:25)
[2021-12-18] MEDS: THIAMINE HCL 100 MG TABLET (FP) PO SCH (21:25)
[2021-12-18] MEDS: OLANZapine 10 MG TABLET PO SCH (21:25)
[2021-12-19] MEDS: NICOTINE 14 MG/24 HOURS TOPICAL PATCH TD SCH (10:17)
[2021-12-19] MEDS: HYDROCHLOROTHIAZIDE 25 MG TABLET (FP) PO SCH (10:17)
[2021-12-19] MEDS: PRENATAL VITAMINS W/ FOLIC ACID TABLET (FP) PO SCH (10:17)
[2021-12-19] MEDS: amLODIPine BESYLATE 10 MG TABLET (FP) PO SCH (10:17)
[2021-12-19] MEDS: METHYL SALICYLATE/MENTHOL OINT 30 GM TUBE TP SCH ×2 (10:17→21:08)
[2021-12-19] MEDS: ALLOPURINOL 100 MG TABLET (FP) PO SCH (10:18)
[2021-12-19] MEDS: hydrALAZINE HCL 25 MG TABLET (FP) PO SCH (10:18)
[2021-12-19] MEDS: guaiFENesin 200 MG/10 ML 10 ML UNIT-DOSE CUPS PO PRN (18:50)
[2021-12-19] MEDS: hydrOXYzine PAMOATE 25 MG CAPSULE (FP) PO PRN (18:50)
[2021-12-19] MEDS: IBUPROFEN 400 MG TABLET (FP) PO PRN (18:50)
[2021-12-19] MEDS: MELATONIN 5 MG TABLETS PO SCH (21:08)
[2021-12-19] MEDS: OLANZapine 10 MG TABLET PO SCH (21:09)
[2021-12-19] MEDS: THIAMINE HCL 100 MG TABLET (FP) PO SCH (21:09)
[2021-12-20] MEDS: hydrALAZINE HCL 25 MG TABLET (FP) PO SCH (10:28)
[2021-12-20] MEDS: PRENATAL VITAMINS W/ FOLIC ACID TABLET (FP) PO SCH (10:28)
[2021-12-20] MEDS: amLODIPine BESYLATE 10 MG TABLET (FP) PO SCH (10:29)
[2021-12-20] MEDS: METHYL SALICYLATE/MENTHOL OINT 30 GM TUBE TP SCH ×2 (10:29→21:24)
[2021-12-20] MEDS: ALLOPURINOL 100 MG TABLET (FP) PO SCH (10:29)
[2021-12-20] MEDS: HYDROCHLOROTHIAZIDE 25 MG TABLET (FP) PO SCH (10:29)
[2021-12-20] MEDS: NICOTINE 14 MG/24 HOURS TOPICAL PATCH TD SCH (10:30)
[2021-12-20 14:09] LABS: SARS-CoV-2 NAA Not Detected (Not Detected)
[2021-12-20] MEDS: THIAMINE HCL 100 MG TABLET (FP) PO SCH (21:23)
[2021-12-20] MEDS: MELATONIN 5 MG TABLETS PO SCH (21:23)
[2021-12-20] MEDS: hydrOXYzine PAMOATE 25 MG CAPSULE (FP) PO PRN (21:23)
[2021-12-20] MEDS: OLANZapine 10 MG TABLET PO SCH (21:23)
[2021-12-21] MEDS: NICOTINE 14 MG/24 HOURS TOPICAL PATCH TD SCH (09:47)
[2021-12-21] MEDS: METHYL SALICYLATE/MENTHOL OINT 30 GM TUBE TP SCH ×2 (09:47→21:24)
[2021-12-21] MEDS: HYDROCHLOROTHIAZIDE 25 MG TABLET (FP) PO SCH (09:47)
[2021-12-21] MEDS: ALLOPURINOL 100 MG TABLET (FP) PO SCH (09:47)
[2021-12-21] MEDS: amLODIPine BESYLATE 10 MG TABLET (FP) PO SCH (09:47)
[2021-12-21] MEDS: PRENATAL VITAMINS W/ FOLIC ACID TABLET (FP) PO SCH (09:47)
[2021-12-21] MEDS: hydrALAZINE HCL 25 MG TABLET (FP) PO SCH (09:47)
[2021-12-21] MEDS: hydrOXYzine PAMOATE 25 MG CAPSULE (FP) PO PRN (21:06)
[2021-12-21] MEDS: THIAMINE HCL 100 MG TABLET (FP) PO SCH (21:06)
[2021-12-21] MEDS: OLANZapine 10 MG TABLET PO SCH (21:06)
[2021-12-21] MEDS: MELATONIN 5 MG TABLETS PO SCH (21:06)
[2021-12-22] MEDS: NICOTINE 14 MG/24 HOURS TOPICAL PATCH TD SCH (09:45)
[2021-12-22] MEDS: METHYL SALICYLATE/MENTHOL OINT 30 GM TUBE TP SCH ×2 (10:05→21:39)
[2021-12-22] MEDS: HYDROCHLOROTHIAZIDE 25 MG TABLET (FP) PO SCH (10:06)
[2021-12-22] MEDS: PRENATAL VITAMINS W/ FOLIC ACID TABLET (FP) PO SCH (10:06)
[2021-12-22] MEDS: amLODIPine BESYLATE 10 MG TABLET (FP) PO SCH (10:06)
[2021-12-22] MEDS: hydrALAZINE HCL 25 MG TABLET (FP) PO SCH ×2 (10:07→21:38)
[2021-12-22] MEDS: ALLOPURINOL 100 MG TABLET (FP) PO SCH (10:07)
[2021-12-22] MEDS: OLANZapine 10 MG TABLET PO SCH (21:38)
[2021-12-22] MEDS: MELATONIN 5 MG TABLETS PO SCH (21:38)
[2021-12-22] MEDS: THIAMINE HCL 100 MG TABLET (FP) PO SCH (21:38)
[2021-12-22] MEDS: hydrOXYzine PAMOATE 25 MG CAPSULE (FP) PO PRN (21:39)
[2021-12-23] MEDS: ALLOPURINOL 100 MG TABLET (FP) PO SCH (09:58)
[2021-12-23] MEDS: hydrALAZINE HCL 25 MG TABLET (FP) PO SCH ×2 (09:58→18:45)
[2021-12-23] MEDS: PRENATAL VITAMINS W/ FOLIC ACID TABLET (FP) PO SCH (09:58)
[2021-12-23] MEDS: NICOTINE 14 MG/24 HOURS TOPICAL PATCH TD SCH (09:58)
[2021-12-23] MEDS: amLODIPine BESYLATE 10 MG TABLET (FP) PO SCH (09:58)
[2021-12-23] MEDS: METHYL SALICYLATE/MENTHOL OINT 30 GM TUBE TP SCH ×2 (10:00→21:05)
[2021-12-23] MEDS: HYDROCHLOROTHIAZIDE 25 MG TABLET (FP) PO SCH (12:05)
[2021-12-23] MEDS: MELATONIN 5 MG TABLETS PO SCH (21:05)
[2021-12-23] MEDS: OLANZapine 10 MG TABLET PO SCH (21:05)
[2021-12-23] MEDS: THIAMINE HCL 100 MG TABLET (FP) PO SCH (21:05)
[2021-12-24] MEDS: hydrALAZINE HCL 25 MG TABLET (FP) PO SCH ×2 (06:41→17:51)
[2021-12-24] MEDS: amLODIPine BESYLATE 10 MG TABLET (FP) PO SCH (06:42)
[2021-12-24] MEDS: HYDROCHLOROTHIAZIDE 25 MG TABLET (FP) PO SCH (06:42)
[2021-12-24] MEDS: NICOTINE 14 MG/24 HOURS TOPICAL PATCH TD SCH (10:42)
[2021-12-24] MEDS: METHYL SALICYLATE/MENTHOL OINT 30 GM TUBE TP SCH ×2 (10:42→21:33)
[2021-12-24] MEDS: PRENATAL VITAMINS W/ FOLIC ACID TABLET (FP) PO SCH (10:43)
[2021-12-24] MEDS: ALLOPURINOL 100 MG TABLET (FP) PO SCH (10:43)
[2021-12-24] MEDS: MELATONIN 5 MG TABLETS PO SCH (21:32)
[2021-12-24] MEDS: OLANZapine 10 MG TABLET PO SCH (21:32)
[2021-12-24] MEDS: THIAMINE HCL 100 MG TABLET (FP) PO SCH (21:33)
[2021-12-25] MEDS: hydrALAZINE HCL 25 MG TABLET (FP) PO SCH ×2 (06:12→17:32)
[2021-12-25] MEDS: HYDROCHLOROTHIAZIDE 25 MG TABLET (FP) PO SCH (06:13)
[2021-12-25] MEDS: amLODIPine BESYLATE 10 MG TABLET (FP) PO SCH (06:14)
[2021-12-25] MEDS: ALLOPURINOL 100 MG TABLET (FP) PO SCH (10:02)
[2021-12-25] MEDS: PRENATAL VITAMINS W/ FOLIC ACID TABLET (FP) PO SCH (10:02)
[2021-12-25] MEDS: NICOTINE 14 MG/24 HOURS TOPICAL PATCH TD SCH (10:03)
[2021-12-25] MEDS: METHYL SALICYLATE/MENTHOL OINT 30 GM TUBE TP SCH ×2 (10:03→21:30)
[2021-12-25] MEDS: OLANZapine 10 MG TABLET PO SCH (21:28)
[2021-12-25] MEDS: THIAMINE HCL 100 MG TABLET (FP) PO SCH (21:29)
[2021-12-25] MEDS: IBUPROFEN 400 MG TABLET (FP) PO PRN (21:29)
[2021-12-25] MEDS: MELATONIN 5 MG TABLETS PO SCH (21:29)
[2021-12-26] MEDS: hydrALAZINE HCL 25 MG TABLET (FP) PO SCH ×2 (06:54→17:20)
[2021-12-26] MEDS: amLODIPine BESYLATE 10 MG TABLET (FP) PO SCH (06:54)
[2021-12-26] MEDS: HYDROCHLOROTHIAZIDE 25 MG TABLET (FP) PO SCH (06:55)
[2021-12-26] MEDS: IBUPROFEN 400 MG TABLET (FP) PO PRN ×2 (06:55→21:15)
[2021-12-26] MEDS: PRENATAL VITAMINS W/ FOLIC ACID TABLET (FP) PO SCH (10:30)
[2021-12-26] MEDS: METHYL SALICYLATE/MENTHOL OINT 30 GM TUBE TP SCH ×2 (10:30→21:15)
[2021-12-26] MEDS: ALLOPURINOL 100 MG TABLET (FP) PO SCH (10:30)
[2021-12-26] MEDS: NICOTINE 14 MG/24 HOURS TOPICAL PATCH TD SCH (10:30)
[2021-12-26] MEDS: THIAMINE HCL 100 MG TABLET (FP) PO SCH (21:15)
[2021-12-26] MEDS: hydrOXYzine PAMOATE 25 MG CAPSULE (FP) PO PRN (21:15)
[2021-12-26] MEDS: OLANZapine 10 MG TABLET PO SCH (21:15)
[2021-12-26] MEDS: MELATONIN 5 MG TABLETS PO SCH (21:15)
[2021-12-27] MEDS: amLODIPine BESYLATE 10 MG TABLET (FP) PO SCH (06:02)
[2021-12-27] MEDS: HYDROCHLOROTHIAZIDE 25 MG TABLET (FP) PO SCH (06:02)
[2021-12-27] MEDS: hydrALAZINE HCL 25 MG TABLET (FP) PO SCH (06:02)
[2021-12-27 06:49] VITALS: BP 148/93; PULSE 89; TEMP 97.7
[2021-12-27] MEDS: METHYL SALICYLATE/MENTHOL OINT 30 GM TUBE TP SCH (09:10)
[2021-12-27] MEDS: ALLOPURINOL 100 MG TABLET (FP) PO SCH (09:10)
[2021-12-27] MEDS: PRENATAL VITAMINS W/ FOLIC ACID TABLET (FP) PO SCH (09:10)
[2021-12-27] MEDS: NICOTINE 14 MG/24 HOURS TOPICAL PATCH TD SCH (09:10)
== END 2021-12-27 09:15 | disposition home or self-care (01) | DRG 772 ==
LOC: YASAS 12:22 → Y3W 12:24
PROVIDERS: ADMIT Allergy & Immunology; ATTEND Psychiatry & Neurology Psychiatry
PROC: HZ42ZZZ Group Counseling for Substance Abuse Treatment, Cognitive-Behavioral (ICD-10-PCS; principal; 2021-12-16)
DX: F10.20 Alcohol dependence, uncomplicated (principal); F14.20 Cocaine dependence, uncomplicated; F31.9 Bipolar disorder, unspecified; F12.20 Cannabis dependence, uncomplicated; F17.210 Nicotine dependence, cigarettes, uncomplicated; F20.9 Schizophrenia, unspecified; J43.9 Emphysema, unspecified; E78.5 Hyperlipidemia, unspecified; M10.9 Gout, unspecified; M17.0 Bilateral primary osteoarthritis of knee
CPT/HCPCS: 82962; C9803-CS; U0003; U0005

== ENCOUNTER 2022-02-27 12:40 | Inpatient (IN) | payer OTHER ==
[2022-02-27] MEDS ORDERED: cloNIDine HCL 0.1 MG TABLET ONE (14:25)
[2022-02-27 14:30] VITALS: BMI 21.1
[2022-02-27] MEDS ORDERED: cloNIDine HCL 0.1 MG TABLET PO ONE ×2 (15:42→18:54)
[2022-02-27] MEDS ORDERED: amLODIPine BESYLATE 5 MG TABLET (FP) ONE (17:01)
[2022-02-27] MEDS: amLODIPine BESYLATE 10 MG TABLET (FP) PO SCH (17:04)
[2022-02-27] MEDS ORDERED: MAGNESIUM CITRATE 300 ML BOTTLE PO PRN (17:32)
[2022-02-27] MEDS ORDERED: ACETAMINOPHEN 325 MG TABLET (FP) PO PRN ×2 (17:32)
[2022-02-27] MEDS ORDERED: LOPERAMIDE HCL 2 MG CAPSULE PO PRN (17:32)
[2022-02-27] MEDS ORDERED: BENZOCAINE/MENTHOL (CHLORASEPTIC ) LOZENGE MM PRN (17:32)
[2022-02-27] MEDS ORDERED: IBUPROFEN 600 MG TABLET (FP) PO PRN (17:32)
[2022-02-27] MEDS ORDERED: MAGNESIUM HYDROX 2400MG/30ML ORAL SUSPENSION 30 ML CUP PO PRN (17:32)
[2022-02-27] MEDS ORDERED: IBUPROFEN 400 MG TABLET (FP) PO PRN (17:32)
[2022-02-27] MEDS ORDERED: ONDANSETRON *ODT* 4 MG TABLET SL PRN (17:32)
[2022-02-27] MEDS ORDERED: BISMUTH SUBSALICYLATE 524 MG/30 ML PO PRN (17:32)
[2022-02-27] MEDS ORDERED: MAG HYDROX/AL HYDROX/SIMETH 30 ML UNIT-DOSE CUP PO PRN (17:32)
[2022-02-27] MEDS ORDERED: DICYCLOMINE HCL 10 MG CAPSULE PO PRN (17:32)
[2022-02-27] MEDS ORDERED: diazePAM 5 MG TABLET PO PRN (17:35)
[2022-02-27] MEDS: hydrOXYzine PAMOATE 25 MG CAPSULE (FP) PO PRN ×2 (18:23→23:28)
[2022-02-27] MEDS: METHOCARBAMOL 500 MG TABLET PO PRN (18:24)
[2022-02-27] MEDS ORDERED: chlordiazePOXIDE HCL 25 MG CAPSULE PO PRN (18:56)
[2022-02-27] MEDS: PARoxetine HCL 10 MG TABLET PO SCH (21:15)
[2022-02-27] MEDS: FOLIC ACID 1 MG TABLET (FP) PO SCH (21:15)
[2022-02-27] MEDS ORDERED: diazePAM 5 MG TABLET PO SCH (23:00)
[2022-02-27] MEDS: THIAMINE HCL 100 MG TABLET (FP) PO SCH (23:27)
[2022-02-27] MEDS: OLANZapine 10 MG TABLET PO SCH (23:28)
[2022-02-27] MEDS: chlordiazePOXIDE HCL 25 MG CAPSULE PO SCH (23:29)
[2022-02-27] MEDS: ALLOPURINOL 100 MG TABLET (FP) PO SCH (23:31)
[2022-02-28] MEDS: chlordiazePOXIDE HCL 25 MG CAPSULE PO SCH ×4 (06:22→23:01)
[2022-02-28] MEDS: HYDROCHLOROTHIAZIDE 25 MG TABLET (FP) PO SCH (11:18)
[2022-02-28] MEDS: PRENATAL VITAMINS W/ FOLIC ACID TABLET (FP) PO SCH (11:18)
[2022-02-28] MEDS: amLODIPine BESYLATE 10 MG TABLET (FP) PO SCH (11:18)
[2022-02-28] MEDS: PARoxetine HCL 10 MG TABLET PO SCH (11:19)
[2022-02-28] MEDS: ALLOPURINOL 100 MG TABLET (FP) PO SCH (11:19)
[2022-02-28] MEDS: FOLIC ACID 1 MG TABLET (FP) PO SCH (11:19)
[2022-02-28 12:33] LABS: HEMATOCRIT 37.1 % (35.4-49); HEMOGLOBIN 12.2 GM/dL (11.7-16.9); MCH 26.9 pg (25.7-33.7); MCHC 32.9 g/dl (32.0-35.9); MEAN CELL VOLUME 81.9 fl (80-96); PLATELET COUNT 202 10^3/uL (134-434); RBC 4.53 M/mm3 (4.00-5.60); RDW 16.2 % (11.9-15.9); WHITE BLOOD COUNT 5.2 K/mm3 (4.0-10.0)
[2022-02-28 12:59] LABS: BILIRUBIN,TOTAL 0.5 mg/dL (0.2-1); CALCIUM 8.5 mg/dL (8.5-10.1); CREATININE 0.9 mg/dL (0.55-1.3); TOT PROT 6.8 g/dl (6.4-8.2)
[2022-02-28] MEDS: hydrALAZINE HCL 25 MG TABLET (FP) PO SCH ×2 (19:48→19:50)
[2022-02-28] MEDS: MELATONIN 5 MG TABLETS PO PRN (23:00)
[2022-02-28] MEDS: OLANZapine 10 MG TABLET PO SCH (23:00)
[2022-02-28] MEDS: THIAMINE HCL 100 MG TABLET (FP) PO SCH (23:00)
[2022-03-01] MEDS ORDERED: diazePAM 5 MG TABLET PO SCH (06:00)
[2022-03-01] MEDS: chlordiazePOXIDE HCL 25 MG CAPSULE PO SCH ×4 (06:21→23:23)
[2022-03-01] MEDS: amLODIPine BESYLATE 10 MG TABLET (FP) PO SCH (10:33)
[2022-03-01] MEDS: HYDROCHLOROTHIAZIDE 25 MG TABLET (FP) PO SCH (10:33)
[2022-03-01] MEDS: PRENATAL VITAMINS W/ FOLIC ACID TABLET (FP) PO SCH (10:33)
[2022-03-01] MEDS: PARoxetine HCL 10 MG TABLET PO SCH (10:34)
[2022-03-01] MEDS: hydrALAZINE HCL 25 MG TABLET (FP) PO SCH (10:34)
[2022-03-01] MEDS: FOLIC ACID 1 MG TABLET (FP) PO SCH (10:34)
[2022-03-01] MEDS: ALLOPURINOL 100 MG TABLET (FP) PO SCH (10:35)
[2022-03-01 11:19] LABS: GLUCOSE,FASTING 93 mg/dL (74-106)
[2022-03-01 11:23] LABS: SGOT/AST 55 U/L (15-37)
[2022-03-01] MEDS: OLANZapine 10 MG TABLET PO SCH (23:23)
[2022-03-01] MEDS: THIAMINE HCL 100 MG TABLET (FP) PO SCH (23:24)
[2022-03-02] MEDS ORDERED: chlordiazePOXIDE HCL 10 MG CAPSULE PO PRN
[2022-03-02] MEDS ORDERED: diazePAM 5 MG TABLET PO SCH (06:00)
[2022-03-02] MEDS: chlordiazePOXIDE HCL 10 MG CAPSULE PO SCH ×4 (07:11→22:46)
[2022-03-02] MEDS ORDERED: cloNIDine HCL 0.1 MG TABLET PO ONE (08:00)
[2022-03-02] MEDS: PRENATAL VITAMINS W/ FOLIC ACID TABLET (FP) PO SCH (11:02)
[2022-03-02] MEDS: HYDROCHLOROTHIAZIDE 25 MG TABLET (FP) PO SCH (11:03)
[2022-03-02] MEDS: amLODIPine BESYLATE 10 MG TABLET (FP) PO SCH (11:03)
[2022-03-02] MEDS: ALLOPURINOL 100 MG TABLET (FP) PO SCH (11:04)
[2022-03-02] MEDS: PARoxetine HCL 10 MG TABLET PO SCH (11:04)
[2022-03-02] MEDS: hydrALAZINE HCL 25 MG TABLET (FP) PO SCH (11:05)
[2022-03-02] MEDS: FOLIC ACID 1 MG TABLET (FP) PO SCH (11:05)
[2022-03-02] MEDS: THIAMINE HCL 100 MG TABLET (FP) PO SCH (22:46)
[2022-03-02] MEDS: OLANZapine 10 MG TABLET PO SCH (22:46)
[2022-03-02] MEDS: MELATONIN 5 MG TABLETS PO PRN (22:47)
[2022-03-03] MEDS ORDERED: chlordiazePOXIDE HCL 10 MG CAPSULE PO SCH (05:00)
[2022-03-03] MEDS ORDERED: diazePAM 5 MG TABLET PO ONE (06:00)
[2022-03-03] MEDS: PRENATAL VITAMINS W/ FOLIC ACID TABLET (FP) PO SCH (10:53)
[2022-03-03] MEDS: FOLIC ACID 1 MG TABLET (FP) PO SCH (10:54)
[2022-03-03] MEDS: hydrALAZINE HCL 25 MG TABLET (FP) PO SCH (10:54)
[2022-03-03] MEDS: amLODIPine BESYLATE 10 MG TABLET (FP) PO SCH (10:54)
[2022-03-03] MEDS: HYDROCHLOROTHIAZIDE 25 MG TABLET (FP) PO SCH (10:54)
[2022-03-03] MEDS: METHOCARBAMOL 500 MG TABLET PO PRN (10:54)
[2022-03-03] MEDS: ALLOPURINOL 100 MG TABLET (FP) PO SCH (10:55)
[2022-03-03] MEDS: PARoxetine HCL 10 MG TABLET PO SCH (10:55)
[2022-03-03 18:01] VITALS: BP 161/95; PULSE 113; RESP 19; TEMP 97.8
[2022-03-04] MEDS ORDERED: chlordiazePOXIDE HCL 10 MG CAPSULE PO ONE (05:00)
== END 2022-03-03 17:45 | disposition home or self-care (01) | DRG 774 ==
LOC: YASAS 12:40 → SUATTDRO 12:40 → Y6N 16:40
PROVIDERS: ADMIT Allergy & Immunology; ATTEND Surgery
PROC: HZ2ZZZZ Detoxification Services for Substance Abuse Treatment (ICD-10-PCS; principal; 2022-02-27)
DX: F10.230 Alcohol dependence with withdrawal, uncomplicated (principal); F10.220 Alcohol dependence with intoxication, uncomplicated; F14.20 Cocaine dependence, uncomplicated; F12.20 Cannabis dependence, uncomplicated; F17.210 Nicotine dependence, cigarettes, uncomplicated; F20.9 Schizophrenia, unspecified; F25.9 Schizoaffective disorder, unspecified; F19.24 Other psychoactive substance dependence with psychoactive substance-induced mood disorder; F19.282 Other psychoactive substance dependence with psychoactive substance-induced sleep disorder; I10 Essential (primary) hypertension; M1A.49X0 Other secondary chronic gout, multiple sites, without tophus (tophi); E78.5 Hyperlipidemia, unspecified; M17.0 Bilateral primary osteoarthritis of knee; J43.9 Emphysema, unspecified; R00.0 Tachycardia, unspecified; Z62.810 Personal history of physical and sexual abuse in childhood; Z86.11 Personal history of tuberculosis; Z56.0 Unemployment, unspecified
CPT/HCPCS: 36415; 80053; 82947; 83036; 84450; 85027; 86780; 87811; C9803-CS; J0735; U0003; U0005

== ENCOUNTER 2022-08-09 20:33 | Inpatient (IN) | payer OTHER ==
[2022-08-09 14:36] VITALS: BMI 19.8
[2022-08-09] MEDS ORDERED: NALOXONE HCL (KLOXXADO) 8 MG SPRAY NS PRN (21:25)
[2022-08-09] MEDS ORDERED: ACETAMINOPHEN 325 MG TABLET (FP) PO PRN ×2 (21:25)
[2022-08-09] MEDS ORDERED: ONDANSETRON *ODT* 4 MG TABLET SL PRN (21:25)
[2022-08-09] MEDS ORDERED: IBUPROFEN 600 MG TABLET (FP) PO PRN (21:25)
[2022-08-09] MEDS ORDERED: MAG HYDROX/AL HYDROX/SIMETH 30 ML UNIT-DOSE CUP PO PRN (21:25)
[2022-08-09] MEDS ORDERED: POLYETHYLENE GLYCOL (HEALTHYLAX) 3350 17 GM PACKET PO PRN (21:25)
[2022-08-09] MEDS ORDERED: DICYCLOMINE HCL 10 MG CAPSULE PO PRN (21:25)
[2022-08-09] MEDS ORDERED: LOPERAMIDE HCL 2 MG CAPSULE PO PRN (21:25)
[2022-08-09] MEDS ORDERED: MAGNESIUM HYDROX 2400MG/30ML ORAL SUSPENSION 30 ML CUP PO PRN (21:25)
[2022-08-09] MEDS ORDERED: IBUPROFEN 400 MG TABLET (FP) PO PRN (21:25)
[2022-08-09] MEDS ORDERED: NALOXONE HCL 0.4 MG/ML VIAL IM PRN (21:25)
[2022-08-09] MEDS ORDERED: guaiFENesin 200 MG/10 ML 10 ML UNIT-DOSE CUPS PO PRN (21:25)
[2022-08-09] MEDS ORDERED: P-EPHED 60MG/TRIPROLIDI 2.5MG TABLET PO PRN (21:25)
[2022-08-09] MEDS ORDERED: BENZOCAINE/MENTHOL (CHLORASEPTIC ) LOZENGE MM PRN (21:25)
[2022-08-09] MEDS ORDERED: BISMUTH SUBSALICYLATE 524 MG/30 ML PO PRN (21:25)
[2022-08-09] MEDS ORDERED: cloNIDine HCL 0.1 MG TABLET PO ONE ×2 (21:28→22:45)
[2022-08-09] MEDS ORDERED: diazePAM 5 MG TABLET PO PRN (22:12)
[2022-08-09] MEDS: THIAMINE HCL 100 MG TABLET (FP) PO SCH (22:43)
[2022-08-09] MEDS: MELATONIN 5 MG TABLETS PO PRN (22:44)
[2022-08-10 10:47] LABS: HEMATOCRIT 41.8 % (35.4-49); HEMOGLOBIN 13.6 GM/dL (11.7-16.9); MCHC 32.5 g/dl (32.0-35.9); MEAN CELL VOLUME 86.3 fl (80-96); MEAN PLT VOLUME 8.6 fl (7.5-11.1); PLATELET COUNT 195 10^3/uL (134-434); RBC 4.85 M/mm3 (4.00-5.60); RDW 14.4 % (11.9-15.9); WHITE BLOOD COUNT 4.7 K/mm3 (4.0-10.0)
[2022-08-10 10:54] LABS: CALCIUM 9.3 mg/dL (8.5-10.1)
[2022-08-10 10:55] LABS: ALBUMIN 3.4 g/dl (3.4-5.0); BLOOD UREA NITROGEN 17.7 mg/dL (7-18)
[2022-08-10 10:59] LABS: BILIRUBIN,TOTAL 0.4 mg/dL (0.2-1); CREATININE 1.1 mg/dL (0.55-1.3); TOT PROT 7.6 g/dl (6.4-8.2)
[2022-08-10] MEDS: PRENATAL VITAMINS W/ FOLIC ACID TABLET (FP) PO SCH (10:59)
[2022-08-10] MEDS: diazePAM 5 MG TABLET PO PRN (11:02)
[2022-08-10] MEDS: diazePAM 5 MG TABLET PO SCH ×2 (18:05→22:54)
[2022-08-10] MEDS ORDERED: cloNIDine HCL 0.1 MG TABLET PO ONE (21:44)
[2022-08-10] MEDS: THIAMINE HCL 100 MG TABLET (FP) PO SCH (22:53)
[2022-08-10] MEDS: MELATONIN 5 MG TABLETS PO PRN (22:54)
[2022-08-11] MEDS: diazePAM 5 MG TABLET PO SCH ×3 (06:17→22:17)
[2022-08-11] MEDS ORDERED: cloNIDine HCL 0.1 MG TABLET PO ONE (06:46)
[2022-08-11] MEDS: hydrOXYzine PAMOATE 25 MG CAPSULE (FP) PO PRN (10:40)
[2022-08-11] MEDS: PRENATAL VITAMINS W/ FOLIC ACID TABLET (FP) PO SCH (10:40)
[2022-08-11] MEDS: amLODIPine BESYLATE 10 MG TABLET (FP) PO SCH (10:41)
[2022-08-11] MEDS: HYDROCHLOROTHIAZIDE 25 MG TABLET (FP) PO SCH (10:41)
[2022-08-11] MEDS: hydrALAZINE HCL 25 MG TABLET (FP) PO SCH (10:42)
[2022-08-11] MEDS: METHOCARBAMOL 500 MG TABLET PO PRN (13:25)
[2022-08-11] MEDS: MELATONIN 5 MG TABLETS PO PRN (22:17)
[2022-08-11] MEDS: THIAMINE HCL 100 MG TABLET (FP) PO SCH (22:17)
[2022-08-12] MEDS: diazePAM 5 MG TABLET PO SCH ×2 (05:57→17:50)
[2022-08-12] MEDS: METHOCARBAMOL 500 MG TABLET PO PRN (06:06)
[2022-08-12] MEDS: hydrOXYzine PAMOATE 25 MG CAPSULE (FP) PO PRN ×3 (06:08→17:52)
[2022-08-12] MEDS: hydrALAZINE HCL 25 MG TABLET (FP) PO SCH (10:31)
[2022-08-12] MEDS: PRENATAL VITAMINS W/ FOLIC ACID TABLET (FP) PO SCH (10:31)
[2022-08-12] MEDS: amLODIPine BESYLATE 10 MG TABLET (FP) PO SCH (10:31)
[2022-08-12] MEDS: HYDROCHLOROTHIAZIDE 25 MG TABLET (FP) PO SCH (10:31)
[2022-08-12 19:35] VITALS: RESP 16
[2022-08-12] MEDS ORDERED: cloNIDine HCL 0.1 MG TABLET PO ONE (19:52)
[2022-08-12] MEDS: THIAMINE HCL 100 MG TABLET (FP) PO SCH (22:52)
[2022-08-12] MEDS: MELATONIN 5 MG TABLETS PO PRN (22:53)
[2022-08-12] MEDS: diazePAM 5 MG TABLET PO PRN (22:53)
[2022-08-13] MEDS ORDERED: diazePAM 5 MG TABLET PO ONE (06:00)
[2022-08-13 10:08] VITALS: BP 126/93; PULSE 85; TEMP 98.1
== END 2022-08-13 09:23 | disposition home or self-care (01) | DRG 774 ==
LOC: YASAS 20:33 → Y6N 21:59
PROVIDERS: ADMIT Allergy & Immunology; ATTEND Surgery
PROC: HZ2ZZZZ Detoxification Services for Substance Abuse Treatment (ICD-10-PCS; principal; 2022-08-09)
DX: F10.230 Alcohol dependence with withdrawal, uncomplicated (principal); F14.20 Cocaine dependence, uncomplicated; F12.20 Cannabis dependence, uncomplicated; F17.210 Nicotine dependence, cigarettes, uncomplicated; F20.9 Schizophrenia, unspecified; F31.81 Bipolar II disorder; E87.6 Hypokalemia; I10 Essential (primary) hypertension; J44.9 Chronic obstructive pulmonary disease, unspecified; M1A.49X0 Other secondary chronic gout, multiple sites, without tophus (tophi); M17.0 Bilateral primary osteoarthritis of knee; Z86.11 Personal history of tuberculosis
CPT/HCPCS: 36415; 80053; 84132; 85027; 86780; 99281-25; C9803-CS; U0003; U0005

== ENCOUNTER 2022-09-26 08:24 | Inpatient (IN) | payer OTHER ==
[2022-09-26 08:55] VITALS: BMI 20.9
[2022-09-26] MEDS ORDERED: ACETAMINOPHEN 325 MG TABLET (FP) PO PRN ×2 (10:29)
[2022-09-26] MEDS ORDERED: ONDANSETRON *ODT* 4 MG TABLET SL PRN (10:29)
[2022-09-26] MEDS ORDERED: NICOTINE 14 MG/24 HOURS TOPICAL PATCH TD PRN (10:29)
[2022-09-26] MEDS ORDERED: DICYCLOMINE HCL 10 MG CAPSULE PO PRN (10:29)
[2022-09-26] MEDS ORDERED: POLYETHYLENE GLYCOL (HEALTHYLAX) 3350 17 GM PACKET PO PRN (10:29)
[2022-09-26] MEDS ORDERED: MAG HYDROX/AL HYDROX/SIMETH 30 ML UNIT-DOSE CUP PO PRN (10:29)
[2022-09-26] MEDS ORDERED: MAGNESIUM HYDROX 2400MG/30ML ORAL SUSPENSION 30 ML CUP PO PRN (10:29)
[2022-09-26] MEDS ORDERED: BISMUTH SUBSALICYLATE 262 MG/15 ML BTL PO PRN (10:29)
[2022-09-26] MEDS ORDERED: BENZOCAINE/MENTHOL (CHLORASEPTIC ) LOZENGE MM PRN (10:29)
[2022-09-26] MEDS ORDERED: IBUPROFEN 400 MG TABLET (FP) PO PRN (10:29)
[2022-09-26] MEDS ORDERED: NICOTINE POLACRILEX 2 MG GUM BUC PRN (10:29)
[2022-09-26] MEDS ORDERED: LOPERAMIDE HCL 2 MG CAPSULE PO PRN (10:29)
[2022-09-26] MEDS ORDERED: chlordiazePOXIDE HCL 25 MG CAPSULE PO PRN (10:29)
[2022-09-26] MEDS ORDERED: NICOTINE 10 MG CARTRIDGE (INHALER) IH PRN (10:29)
[2022-09-26] MEDS ORDERED: ALBUTEROL SO4 HFA INHALER IH PRN (10:43)
[2022-09-26] MEDS: amLODIPine BESYLATE 10 MG TABLET (FP) PO SCH (10:51)
[2022-09-26] MEDS: HYDROCHLOROTHIAZIDE 25 MG TABLET (FP) PO SCH (10:51)
[2022-09-26] MEDS ORDERED: HYDROCHLOROTHIAZIDE 12.5 MG CAPSULE (FP) ONE (10:53)
[2022-09-26] MEDS ORDERED: amLODIPine BESYLATE 5 MG TABLET (FP) ONE (10:53)
[2022-09-26] MEDS: METHOCARBAMOL 500 MG TABLET PO PRN (14:07)
[2022-09-26] MEDS: hydrOXYzine PAMOATE 25 MG CAPSULE (FP) PO PRN (14:07)
[2022-09-26] MEDS: cloNIDine HCL 0.1 MG TABLET PO PRN ×2 (14:07→22:26)
[2022-09-26] MEDS: IBUPROFEN 600 MG TABLET (FP) PO PRN (14:09)
[2022-09-26] MEDS: chlordiazePOXIDE HCL 25 MG CAPSULE PO SCH ×2 (17:26→22:21)
[2022-09-26] MEDS: FAMOTIDINE 20 MG TABLET PO SCH (22:21)
[2022-09-26] MEDS: THIAMINE HCL 100 MG TABLET (FP) PO SCH (22:22)
[2022-09-26] MEDS: MELATONIN 5 MG TABLETS PO SCH (22:22)
[2022-09-27] MEDS: chlordiazePOXIDE HCL 25 MG CAPSULE PO SCH ×4 (05:18→22:15)
[2022-09-27] MEDS: PRENATAL VITAMINS W/ FOLIC ACID TABLET (FP) PO SCH (10:15)
[2022-09-27] MEDS: HYDROCHLOROTHIAZIDE 25 MG TABLET (FP) PO SCH (10:16)
[2022-09-27] MEDS: amLODIPine BESYLATE 10 MG TABLET (FP) PO SCH (10:16)
[2022-09-27] MEDS: FAMOTIDINE 20 MG TABLET PO SCH ×2 (10:16→22:15)
[2022-09-27 10:57] LABS: HEMATOCRIT 35.4 % (35.4-49); HEMOGLOBIN 11.8 GM/dL (11.7-16.9); MCH 27.3 pg (25.7-33.7); MCHC 33.3 g/dl (32.0-35.9); MEAN CELL VOLUME 82.2 fl (80-96); MEAN PLT VOLUME 8.2 fl (7.5-11.1); PLATELET COUNT 237 10^3/uL (134-434); RBC 4.31 M/mm3 (4.00-5.60); RDW 14.6 % (11.9-15.9); WHITE BLOOD COUNT 4.1 K/mm3 (4.0-10.0)
[2022-09-27 11:34] LABS: BLOOD UREA NITROGEN 13.1 mg/dL (7-18); CALCIUM 8.7 mg/dL (8.5-10.1)
[2022-09-27 11:37] LABS: CREATININE 1.1 mg/dL (0.55-1.3)
[2022-09-27 11:39] LABS: BILIRUBIN,TOTAL 0.4 mg/dL (0.2-1); TOT PROT 6.7 g/dl (6.4-8.2)
[2022-09-27] MEDS: THIAMINE HCL 100 MG TABLET (FP) PO SCH (22:14)
[2022-09-27] MEDS: MELATONIN 5 MG TABLETS PO SCH (22:15)
[2022-09-28] MEDS ORDERED: chlordiazePOXIDE HCL 10 MG CAPSULE PO PRN
[2022-09-28] MEDS: chlordiazePOXIDE HCL 10 MG CAPSULE PO SCH ×4 (05:41→22:48)
[2022-09-28] MEDS: hydrOXYzine PAMOATE 25 MG CAPSULE (FP) PO PRN (05:44)
[2022-09-28] MEDS: HYDROCHLOROTHIAZIDE 25 MG TABLET (FP) PO SCH (10:24)
[2022-09-28] MEDS: PRENATAL VITAMINS W/ FOLIC ACID TABLET (FP) PO SCH (10:24)
[2022-09-28] MEDS: amLODIPine BESYLATE 10 MG TABLET (FP) PO SCH (10:24)
[2022-09-28] MEDS: FAMOTIDINE 20 MG TABLET PO SCH ×2 (10:24→22:48)
[2022-09-28] MEDS: METHOCARBAMOL 500 MG TABLET PO PRN (17:51)
[2022-09-28] MEDS: MELATONIN 5 MG TABLETS PO SCH (22:48)
[2022-09-28] MEDS: THIAMINE HCL 100 MG TABLET (FP) PO SCH (22:48)
[2022-09-29] MEDS: chlordiazePOXIDE HCL 10 MG CAPSULE PO SCH ×2 (05:57→17:30)
[2022-09-29] MEDS: hydrOXYzine PAMOATE 25 MG CAPSULE (FP) PO PRN ×2 (05:59→17:31)
[2022-09-29] MEDS: PRENATAL VITAMINS W/ FOLIC ACID TABLET (FP) PO SCH (10:35)
[2022-09-29] MEDS: METHOCARBAMOL 500 MG TABLET PO PRN (10:36)
[2022-09-29] MEDS: cloNIDine HCL 0.1 MG TABLET PO PRN (10:37)
[2022-09-29] MEDS: HYDROCHLOROTHIAZIDE 25 MG TABLET (FP) PO SCH (10:37)
[2022-09-29] MEDS: FAMOTIDINE 20 MG TABLET PO SCH ×2 (10:37→22:19)
[2022-09-29] MEDS: amLODIPine BESYLATE 10 MG TABLET (FP) PO SCH (10:37)
[2022-09-29] MEDS: IBUPROFEN 600 MG TABLET (FP) PO PRN (10:38)
[2022-09-29 13:03] VITALS: RESP 18
[2022-09-29] MEDS: MELATONIN 5 MG TABLETS PO SCH (22:19)
[2022-09-29] MEDS: THIAMINE HCL 100 MG TABLET (FP) PO SCH (22:20)
[2022-09-30] MEDS ORDERED: chlordiazePOXIDE HCL 10 MG CAPSULE PO ONE (05:00)
[2022-09-30 09:26] VITALS: BP 143/89; PULSE 93; TEMP 97.2
[2022-09-30] MEDS: amLODIPine BESYLATE 10 MG TABLET (FP) PO SCH (10:06)
[2022-09-30] MEDS: HYDROCHLOROTHIAZIDE 25 MG TABLET (FP) PO SCH (10:06)
[2022-09-30] MEDS: PRENATAL VITAMINS W/ FOLIC ACID TABLET (FP) PO SCH (10:07)
[2022-09-30] MEDS: FAMOTIDINE 20 MG TABLET PO SCH (10:07)
[2022-09-30] MEDS: hydrOXYzine PAMOATE 25 MG CAPSULE (FP) PO PRN (10:08)
== END 2022-09-30 13:25 | disposition home or self-care (01) | DRG 774 ==
LOC: YASAS 08:24 → Y6N 10:56
PROVIDERS: ADMIT Allergy & Immunology; ATTEND Surgery
PROC: HZ2ZZZZ Detoxification Services for Substance Abuse Treatment (ICD-10-PCS; principal; 2022-09-26)
DX: F10.230 Alcohol dependence with withdrawal, uncomplicated (principal); F14.20 Cocaine dependence, uncomplicated; F12.20 Cannabis dependence, uncomplicated; F17.210 Nicotine dependence, cigarettes, uncomplicated; F25.9 Schizoaffective disorder, unspecified; F19.282 Other psychoactive substance dependence with psychoactive substance-induced sleep disorder; F19.24 Other psychoactive substance dependence with psychoactive substance-induced mood disorder; I10 Essential (primary) hypertension; J43.0 Unilateral pulmonary emphysema [MacLeod's syndrome]; K21.9 Gastro-esophageal reflux disease without esophagitis; M10.9 Gout, unspecified; M19.90 Unspecified osteoarthritis, unspecified site; R76.11 Nonspecific reaction to tuberculin skin test without active tuberculosis
CPT/HCPCS: 36415; 71046-TC-FY; 80053; 85027; 86780; 87811; 93005; 93010; C9803-CS; U0003; U0005

== ENCOUNTER 2022-12-01 10:10 | Inpatient (IN) | payer OTHER ==
[2022-12-01 10:54] VITALS: BMI 19.2
[2022-12-01] MEDS ORDERED: ACETAMINOPHEN 325 MG TABLET (FP) PO PRN ×2 (11:27)
[2022-12-01] MEDS ORDERED: MAG HYDROX/AL HYDROX/SIMETH 30 ML UNIT-DOSE CUP PO PRN (11:27)
[2022-12-01] MEDS ORDERED: ONDANSETRON *ODT* 4 MG TABLET SL PRN (11:27)
[2022-12-01] MEDS ORDERED: BENZONATATE 200 MG CAPSULE PO PRN (11:27)
[2022-12-01] MEDS ORDERED: DICYCLOMINE HCL 10 MG CAPSULE PO PRN (11:27)
[2022-12-01] MEDS ORDERED: LOPERAMIDE HCL 2 MG CAPSULE PO PRN (11:27)
[2022-12-01] MEDS ORDERED: POLYETHYLENE GLYCOL (HEALTHYLAX) 3350 17 GM PACKET PO PRN (11:27)
[2022-12-01] MEDS ORDERED: IBUPROFEN 400 MG TABLET (FP) PO PRN (11:27)
[2022-12-01] MEDS ORDERED: NICOTINE POLACRILEX 2 MG GUM BUC PRN (11:27)
[2022-12-01] MEDS ORDERED: MAGNESIUM HYDROX 2400MG/30ML ORAL SUSPENSION 30 ML CUP PO PRN (11:27)
[2022-12-01] MEDS ORDERED: IBUPROFEN 600 MG TABLET (FP) PO PRN (11:27)
[2022-12-01] MEDS ORDERED: BISMUTH SUBSALICYLATE 262 MG/15 ML BTL PO PRN (11:27)
[2022-12-01] MEDS ORDERED: P-EPHED 60MG/TRIPROLIDI 2.5MG TABLET PO PRN (11:27)
[2022-12-01] MEDS ORDERED: guaiFENesin 600 MG TABLET.ER (FP) PO PRN (11:27)
[2022-12-01] MEDS ORDERED: amLODIPine BESYLATE 5 MG TABLET (FP) ONE (12:35)
[2022-12-01] MEDS ORDERED: HYDROCHLOROTHIAZIDE 12.5 MG CAPSULE (FP) ONE (12:36)
[2022-12-01] MEDS: amLODIPine BESYLATE 10 MG TABLET (FP) PO SCH (12:40)
[2022-12-01] MEDS: HYDROCHLOROTHIAZIDE 25 MG TABLET (FP) PO SCH (12:40)
[2022-12-01] MEDS: hydrALAZINE HCL 25 MG TABLET (FP) PO SCH ×2 (12:52→22:48)
[2022-12-01] MEDS ORDERED: chlordiazePOXIDE HCL 25 MG CAPSULE PO PRN (13:47)
[2022-12-01] MEDS: chlordiazePOXIDE HCL 25 MG CAPSULE PO SCH ×2 (17:15→23:14)
[2022-12-01] MEDS ORDERED: cloNIDine HCL 0.1 MG TABLET PO ONE (17:46)
[2022-12-01] MEDS: THIAMINE HCL 100 MG TABLET (FP) PO SCH (22:53)
[2022-12-01] MEDS: OLANZapine 5 MG TABLET PO SCH (22:53)
[2022-12-01] MEDS: MELATONIN 5 MG TABLETS PO PRN (23:12)
[2022-12-02] MEDS: chlordiazePOXIDE HCL 25 MG CAPSULE PO SCH ×4 (05:47→22:52)
[2022-12-02] MEDS: amLODIPine BESYLATE 10 MG TABLET (FP) PO SCH (10:48)
[2022-12-02] MEDS: HYDROCHLOROTHIAZIDE 25 MG TABLET (FP) PO SCH (10:48)
[2022-12-02] MEDS: PRENATAL VITAMINS W/ FOLIC ACID TABLET (FP) PO SCH (10:48)
[2022-12-02] MEDS: hydrALAZINE HCL 25 MG TABLET (FP) PO SCH ×2 (11:42→22:52)
[2022-12-02 12:27] LABS: HEMATOCRIT 39.9 % (35.4-49); MCHC 32.5 g/dl (32.0-35.9); MEAN CELL VOLUME 82.9 fl (80-96); MEAN PLT VOLUME 8.4 fl (7.5-11.1); PLATELET COUNT 238 10^3/uL (134-434); POTASSIUM 4.2 mmol/L (3.5-5.1); RBC 4.81 M/mm3 (4.00-5.60); RDW 16.5 % (11.9-15.9); WHITE BLOOD COUNT 4.2 K/mm3 (4.0-10.0)
[2022-12-02 12:31] LABS: ALBUMIN 3.2 g/dl (3.4-5.0); CALCIUM 9.3 mg/dL (8.5-10.1)
[2022-12-02 12:32] LABS: BLOOD UREA NITROGEN 20.4 mg/dL (7-18)
[2022-12-02 12:35] LABS: CREATININE 1.3 mg/dL (0.55-1.3)
[2022-12-02 12:36] LABS: BILIRUBIN,TOTAL 0.7 mg/dL (0.2-1); TOT PROT 7.5 g/dl (6.4-8.2)
[2022-12-02] MEDS: OLANZapine 5 MG TABLET PO SCH (22:52)
[2022-12-02] MEDS: MELATONIN 5 MG TABLETS PO PRN (22:52)
[2022-12-02] MEDS: THIAMINE HCL 100 MG TABLET (FP) PO SCH (22:54)
[2022-12-03] MEDS: chlordiazePOXIDE HCL 25 MG CAPSULE PO SCH ×4 (06:31→22:42)
[2022-12-03] MEDS: BENZOCAINE/MENTHOL (CHLORASEPTIC ) LOZENGE MM PRN (06:32)
[2022-12-03] MEDS: HYDROCHLOROTHIAZIDE 25 MG TABLET (FP) PO SCH (10:38)
[2022-12-03] MEDS: PRENATAL VITAMINS W/ FOLIC ACID TABLET (FP) PO SCH (10:38)
[2022-12-03] MEDS: hydrALAZINE HCL 25 MG TABLET (FP) PO SCH ×2 (10:39→22:41)
[2022-12-03] MEDS: amLODIPine BESYLATE 10 MG TABLET (FP) PO SCH (10:39)
[2022-12-03] MEDS: THIAMINE HCL 100 MG TABLET (FP) PO SCH (22:39)
[2022-12-03] MEDS: OLANZapine 5 MG TABLET PO SCH (22:40)
[2022-12-03] MEDS: MELATONIN 5 MG TABLETS PO PRN (22:40)
[2022-12-04] MEDS ORDERED: chlordiazePOXIDE HCL 10 MG CAPSULE PO PRN
[2022-12-04] MEDS: chlordiazePOXIDE HCL 10 MG CAPSULE PO SCH ×4 (05:58→22:32)
[2022-12-04] MEDS: PRENATAL VITAMINS W/ FOLIC ACID TABLET (FP) PO SCH (10:12)
[2022-12-04] MEDS: hydrALAZINE HCL 25 MG TABLET (FP) PO SCH ×2 (10:12→22:32)
[2022-12-04] MEDS: HYDROCHLOROTHIAZIDE 25 MG TABLET (FP) PO SCH (10:12)
[2022-12-04] MEDS: amLODIPine BESYLATE 10 MG TABLET (FP) PO SCH (10:12)
[2022-12-04] MEDS ORDERED: guaiFENesin 600 MG TABLET.ER (FP) PO SCH (14:00)
[2022-12-04] MEDS: hydrOXYzine PAMOATE 25 MG CAPSULE (FP) PO PRN (17:40)
[2022-12-04] MEDS: BENZOCAINE/MENTHOL (CHLORASEPTIC ) LOZENGE MM PRN (18:00)
[2022-12-04] MEDS ORDERED: guaiFENesin 200 MG/10 ML 10 ML UNIT-DOSE CUPS PO PRN (18:44)
[2022-12-04] MEDS: THIAMINE HCL 100 MG TABLET (FP) PO SCH (22:31)
[2022-12-04] MEDS: MELATONIN 5 MG TABLETS PO PRN (22:31)
[2022-12-04] MEDS: OLANZapine 5 MG TABLET PO SCH (22:32)
[2022-12-05] MEDS: chlordiazePOXIDE HCL 10 MG CAPSULE PO SCH ×2 (05:23→17:20)
[2022-12-05] MEDS: hydrOXYzine PAMOATE 25 MG CAPSULE (FP) PO PRN (05:23)
[2022-12-05] MEDS: HYDROCHLOROTHIAZIDE 25 MG TABLET (FP) PO SCH (10:17)
[2022-12-05] MEDS: PRENATAL VITAMINS W/ FOLIC ACID TABLET (FP) PO SCH (10:17)
[2022-12-05] MEDS: hydrALAZINE HCL 25 MG TABLET (FP) PO SCH ×2 (10:17→22:56)
[2022-12-05] MEDS: amLODIPine BESYLATE 10 MG TABLET (FP) PO SCH (10:17)
[2022-12-05] MEDS: BUDESONIDE/FORMETEROL FUMARATE 80/4.5 mcg INHALER IH SCH ×2 (14:39→22:56)
[2022-12-05] MEDS: ALBUTEROL SO4 2.5/IPRATROPIUM 0.5 INH SOL 3 ML VIAL.NEB. NEB SCH ×2 (14:43→20:00)
[2022-12-05] MEDS: THIAMINE HCL 100 MG TABLET (FP) PO SCH (22:56)
[2022-12-05] MEDS: OLANZapine 5 MG TABLET PO SCH (22:56)
[2022-12-05] MEDS: MELATONIN 5 MG TABLETS PO PRN (22:59)
[2022-12-06] MEDS ORDERED: chlordiazePOXIDE HCL 10 MG CAPSULE PO ONE (05:00)
[2022-12-06] MEDS: hydrOXYzine PAMOATE 25 MG CAPSULE (FP) PO PRN (05:55)
[2022-12-06 08:51] VITALS: BP 120/73; PULSE 64; RESP 18; TEMP 97.1
== END 2022-12-06 08:54 | disposition home or self-care (01) | DRG 774 ==
LOC: YASAS 10:10 → Y3N 13:25
PROVIDERS: ADMIT Allergy & Immunology; ATTEND Surgery
PROC: HZ2ZZZZ Detoxification Services for Substance Abuse Treatment (ICD-10-PCS; principal; 2022-12-01)
DX: F10.230 Alcohol dependence with withdrawal, uncomplicated (principal); F14.20 Cocaine dependence, uncomplicated; F12.20 Cannabis dependence, uncomplicated; F17.210 Nicotine dependence, cigarettes, uncomplicated; F31.9 Bipolar disorder, unspecified; F20.9 Schizophrenia, unspecified; F19.282 Other psychoactive substance dependence with psychoactive substance-induced sleep disorder; F19.24 Other psychoactive substance dependence with psychoactive substance-induced mood disorder; I10 Essential (primary) hypertension; J44.9 Chronic obstructive pulmonary disease, unspecified; K21.9 Gastro-esophageal reflux disease without esophagitis; M10.9 Gout, unspecified; M19.90 Unspecified osteoarthritis, unspecified site; R05.9 Cough, unspecified; R76.11 Nonspecific reaction to tuberculin skin test without active tuberculosis; Z56.0 Unemployment, unspecified; Z59.00 Homelessness unspecified
CPT/HCPCS: 26055; 36415; 80053; 85027; 86780; 93005; 93010; C9803-CS; U0003; U0005